=== PATIENT | female | born 1950 | race Caucasian/White ===

== ENCOUNTER 2018-04-19 17:36 | Emergency (ER) | payer MEDICARE, BC ==
[~2018-04-19] VITALS: Ht 154.9 cm; Wt 67.1 kg
[~2018-04-19 17:36] MED LIST: HYDROCODON-ACE1 EA11 PO; METOPROLOL TART25 MG PO; PRILOSEC OTC20 MG PO; QUINAPRIL HCL20 MG PO; TYLENOL EXTRA500 MG PO
--- OUTSIDE RECORDS SUMMARY | 2018-04-19 17:39 | XMS REPORT | Clinical Summary ---
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 Disp. Refills Start End Date Status Date polyethylene glycol TAKE 1 PACKET BY MOUTH 1 02/02/20 Active (MIRALAX) 17 gram packet EVERY DAY NEEDED FOR 16 20 DAYS. sucralfate (CARAFATE) 1 Take 1 g by mouth every 6 0 02/21/20 Active gram tablet (six) hours. 16 HYDROcodone-acetaminophen TAKE 1 TABLET BY MOUTH 4 0 02/14/20 Active (NORCO 10-325) 10-325 mg TIMES A DAY NEEDED FOR 16 per tablet PAIN furosemide (LASIX) 40 MG Take 40 mg by mouth 2 Active tablet (two) times a day. FLUoxetine (PROzac) 20 MG Take 1 capsule (20 mg 30 capsule 2 02/25/20 Active capsuleIndications: total) by mouth daily. 16 Depression with anxiety atorvastatin (LIPITOR) 40 Take 1 tablet (40 mg 90 tablet 1 03/02/20 Active MG tablet total) by mouth daily. 16 traZODone (DESYREL) 50 MG TAKE 1 TABLET BY MOUTH 30 tablet 0 04/06/20 Active tablet NIGHTLY NEEDED FOR 16 SLEEP FOR UP TO 30 DAYS. Active Problems Problem Noted Date Bilateral swelling of feet 02/25/2016 Primary osteoarthritis of both knees 02/25/2016 Depression with anxiety 02/25/2016 PUD (peptic ulcer disease) 02/25/2016 Essential hypertension 02/25/2016 Bariatric surgery status 02/25/2016 Atopic rhinitis 08/30/2012 Immunizations Name Dates Previously Given Next Due Influenza (IM) 04/29/2013 Preservative Free Tdap 12/31/2012 Social History Tobacco Use Types Packs/Day Years Used Date Never Smoker Smokeless Tobacco: Never Used Alcohol Use Drinks/Week oz/Week Comments No Sex Assigned at Date Recorded Not on file Last Filed Vital Signs Not on file Plan of Treatment Health Maintenance Due Date Last Done Comments BREAST CANCER SCREENING 10/29/1999 SHINGRIX VACCINE (#1) 10/29/1999 ZOSTER VACCINE 2009 PNEUMOCOCCAL 2014 POLYSACCHARIDE VACCINE AGE 65 AND OVER PNEUMOCOCCAL-13 2014 INFLUENZA VACCINE 01/23/2018 COLON CANCER SCREENING 07/27/2025 07/27/2015 Results Not on fileafter 04/18/2017 Insurance Payer Benefit Subscriber ID Type Phone Address Plan / Group MEDICARE MEDICARE xxxxxxxxxx Medicare [place] PART A AND B BCBS MEDICARE BLUE xxxxxxxxxxxx PPO MEDICARE ADVANTAGE PPO Home: P Vannessa JIMENEZ [id number] [place] [id number]
--- OUTSIDE RECORDS SUMMARY | 2018-04-19 17:40 | XMS REPORT | Summary of Care ---
Author Author [facility] Address Unknown Phone Unavailable Encounter HQ Danika_mic(FIN) [id number] Date(s): 04/26/15 - 05/25/15 [facility] Discharge Disposition: Home Attending Physician: Dontae Bello MD Vital Signs No data available for this section Problem List Condition Effective Dates Status Health Status Informant Bundle branch block, Active right(Confirmed) GERD Resolved (gastroesophageal reflux disease)(Confirmed) Hiatal Resolved hernia(Confirmed) High Resolved cholesterol(Confirme d) History of gastric Resolved ulcer(Confirmed) HTN Resolved (hypertension)(Confi rmed) Morbid Resolved obesity(Confirmed) Rheumatoid Resolved arthritis(Confirmed) Allergies, Adverse Reactions, Alerts Substance Reaction Severity Status codeine Active Cough Syrup Active iodine Active iodine topical Active Medications No data available for this section Results No data available for this section Immunizations No data available for this section Procedures Procedure Date Related Diagnosis Body Site Aortofemoral angiogram Upper GI endoscopy Social History Social History Type Response Smoking Status Never smoker; Exposure to Tobacco Smoke None; Cigarette Smoking Last 365 Days No; Reg Smoking Cessation Counseling No Assessment and Plan No data available for this section
--- OUTSIDE RECORDS SUMMARY | 2018-04-19 17:40 | XMS REPORT | Summary of Care ---
Author Author [facility] Organization [facility] Address Unknown Phone Unavailable Encounter TANVIR Coronado(DMITRIY) [id number] Date(s): 03/08/15 - 03/08/15 [facility] [address] [place] [address]- Discharge Disposition: Home Attending Physician: Anrdew Armstrong MD Referring Physician: Andrew Armstrong MD Vital Signs 1 2 3 Most recent to oldest [Reference Range]: 152.4 cm (03/05/15 2:01 PM) Height 1 2 3 Most recent to oldest [Reference Range]: 154/84 mmHg *HI* (03/08/15 9:45 AM) 168/92 mmHg *HI* (03/08/15 9:30 AM) 152/83 mmHg 1 *HI* (03/08/15 9:17 AM) Blood Pressure [90-140/60-90 mmHg] 1 2 3 Most recent to oldest [Reference Range]: 16 BRMIN (03/08/15 9:45 AM) 16 BRMIN (03/08/15 9:30 AM) 14 BRMIN (03/08/15 9:17 AM) Respiratory Rate [14-20 BRMIN] 1 2 3 Most recent to oldest [Reference Range]: 128.182 kg (03/05/15 2:01 PM) Weight 1 2 3 Most recent to oldest [Reference Range]: 55.19 m2 (03/05/15 2:01 PM) Body Mass Index 1Result Comment: bp in preop 176/85 Problem List Condition Effective Dates Status Health Status Informant Bundle branch block, Active right(Confirmed) GERD Resolved (gastroesophageal reflux disease)(Confirmed) Hiatal Resolved hernia(Confirmed) High Resolved cholesterol(Confirme d) History of gastric Resolved ulcer(Confirmed) HTN Resolved (hypertension)(Confi rmed) Morbid Resolved obesity(Confirmed) Rheumatoid Resolved arthritis(Confirmed) Allergies, Adverse Reactions, Alerts Substance Reaction Severity Status codeine Active Cough Syrup Active iodine Active iodine topical Active Medications Dexilant PO, Daily, 0 Refill(s) Start Date: 03/05/15 Status: Ordered Lactated Ringers Injection IV 1000 mL 1,000 mL, Rate: 25 ml/hr, Infuse over: 40 hr, Route: IV, Dosing Weight 128.182 k g, Total Volume: 1,000, Start date: 03/08/15 8:58:00, Duration: 30 day, Stop jamie e: 04/07/15 8:57:00 Start Date: 03/08/15 Stop Date: 03/08/15 Status: Discontinued quinapril PO, Daily, 0 Refill(s) Start Date: 03/05/15 Status: Ordered Vitamin C 0 Refill(s) Start Date: 03/05/15 Status: Ordered Vitamin D3 0 Refill(s) Start Date: 03/05/15 Status: Ordered vitamin E PO, Daily, 0 Refill(s) Start Date: 03/05/15 Status: Ordered Results No data available for this section [...]
--- OUTSIDE RECORDS SUMMARY | 2018-04-19 17:40 | XMS REPORT | Summary of Care ---
Author Author [facility] Organization [facility] Address Unknown Phone Unavailable Encounter HQ Cliff(FIN) [id number] Date(s): 03/30/15 - 03/30/15 [facility] [address] [place] [address]- Final: Right upper quadrant pain Discharge Disposition: Home Attending Physician: Andrew Armstrong MD Referring Physician: Andrew Armstrong MD Vital Signs No data available for [...]
--- OUTSIDE RECORDS SUMMARY | 2018-04-19 17:40 | XMS REPORT | Summary of Care ---
Author Organization Unknown Address Unknown Phone Unavailable Encounter HQ Encntr_aligodfrey(DMITRIY) [id number] Date(s): 12/04/14 - 01/02/15 [facility] [address] [place] [address]- Discharge Disposition: Home Physician Attending: Andrew Armstrong MD Physician_Referring: Andrew Armstrong MD Vital Signs No data available for this section Problem List Condition Effective Dates Status Health Status Informant Bundle branch block, Active right(Confirmed) Allergies, Adverse Reactions, Alerts Substance Reaction Severity Status Cough Syrup Active iodine Active Medications No data available for this section Results No data available for this section Immunizations No data available for this section Procedures No data available for this section Social History Social History Type Response Smoking Status Never smoker; Exposure to Tobacco Smoke None; Cigarette Smoking Last 365 Days No; Reg Smoking Cessation Counseling No Assessment and Plan No data available for this section
--- OUTSIDE RECORDS SUMMARY | 2018-04-19 17:40 | XMS REPORT | Summary of Care ---
Author Author [facility] Outpatient Imaging [facility] [place] Address Unknown Phone Unavailable Encounter HQ Encntr_alias(FIN) [id number] Date(s): 03/02/15 - 03/02/15 [facility] [place] [address] [place], [place] [id number] [phone] Discharge Disposition: Home Attending Physician: Kye Najera MD Vital Signs No data available for [...]
--- OUTSIDE RECORDS SUMMARY | 2018-04-19 17:40 | XMS REPORT | Summary of Care ---
Author Author [facility] Organization [facility] Address Unknown Phone Unavailable Encounter TANVIR Coronado(DMITRIY) [id number] Date(s): 02/02/15 - 02/02/15 [facility] [address] [place] [address]- [phone] Discharge Disposition: Home Attending Physician: Yisel Kaufman MD Referring Physician: Yisel Kaufman MD Vital Signs Most recent to 1 oldest [Reference Range]: Height 154.94 cm (02/02/15 1:34 PM) Most recent to 1 oldest [Reference Range]: Weight 126.364 kg (02/02/15 1:34 PM) Most recent to 1 oldest [Reference Range]: Body Mass Index 52.64 m2 (02/02/15 1:34 PM) Problem List Condition Effective Dates Status Health [...]
--- OUTSIDE RECORDS SUMMARY | 2018-04-19 17:40 | XMS REPORT | Summary of Care ---
Author Author [facility] Address Unknown Phone Unavailable Encounter HQ Danika_mic(FIN) [id number] Date(s): 10/06/15 - 11/04/15 [facility] Discharge Disposition: Home Attending Physician: Zeeshan El MD Vital Signs No data available for [...]
--- OUTSIDE RECORDS SUMMARY | 2018-04-19 17:40 | XMS REPORT | Summary of Care ---
Author Author [facility] Organization [facility] Address Unknown Phone Unavailable Encounter TANVIR [place](DMITRIY) [id number] Date(s): 03/17/15 - 03/17/15 [facility] [address] [place] [address]- Discharge Disposition: Home Attending Physician: Andrew Armstrong [...]
--- OUTSIDE RECORDS SUMMARY | 2018-04-19 17:40 | XMS REPORT | Summary of Care ---
Author Organization Unknown Address Unknown Phone Unavailable Encounter HQ Encntr_aligodfrey([facility]) [id number] Date(s): 05/26/14 - 05/26/14 [facility] Outpatient Imaging - [address] [address]- [place] Discharge Disposition: Home Physician Attending: Kye Najera MD Reason for Visit 789.00 - ABDMNAL PAIN UN 787.02 - NAUSEA ALONE Problem List No data available for this section Allergies, Adverse Reactions, Alerts No data available for this section Medications No data available for this section Medications Administered During Your Visit No data available for this section Immunizations No data available for this section
--- OUTSIDE RECORDS SUMMARY | 2018-04-19 17:40 | XMS REPORT | Summary of Care ---
Author Author [facility] Organization [facility] Address Unknown Phone Unavailable Encounter HQ Danika_mic(FIN) [id number] Date(s): 05/14/15 - 05/14/15 [facility] [address] [place] [address]- Final: Gastric ulcer, unspecified as acute or chronic, without hemorrhage or per foration Final: Encounter for screening for malignant neoplasm of colon Discharge Disposition: Home Attending Physician: Lynn Valdivia MD Referring Physician: Lynn Valdivia MD Vital Signs No data available for [...]
--- OUTSIDE RECORDS SUMMARY | 2018-04-19 17:40 | XMS REPORT | Summary of Care ---
Author Author [facility] Outpatient Imaging [facility] [place] Address Unknown Phone Unavailable Encounter HQ Danika_mic(FIN) [id number] Date(s): 04/20/15 - 04/20/15 [facility] Outpatient Imaging [place] [address] [place], [place] [id number]- [phone] Discharge Disposition: Home Attending Physician: Kye Najera [...]
--- OUTSIDE RECORDS SUMMARY | 2018-04-19 17:40 | XMS REPORT | Continuity of Care Document ---
Author Author [facility] Interface Address Unknown Phone Unavailable Problems Problem Status Onset Date Classification Date Reported Comments Source Abnormal electrocardiogram [ECG] [EKG] 07/07/2017 10/09/2017 [facility] R94.31 *DR WELLS TO PERFORM Active 06/15/2017 [facility] LT KNEE OA Active 01/23/2017 [facility] [place] Discharge Diagnosis: Dehydration 10/10/2016 10/13/2016 [facility] DEHYDRATED/DIZZINESS Active 10/10/2016 [facility] UNK Active 09/07/2016 [facility] TKR Active 06/25/2016 [facility] BILAT KNEE PAIN Active 06/25/2016 [facility] BLOATING / GASTROPARESIS Active 05/05/2015 [facility] ABD PAIN Active 03/24/2015 [facility] V76.12 - SCREEN MAMMOGRA Active 02/19/2015 [facility] 281.0,531.90 Active 01/28/2015 [facility] ABN EKG, CHEST PAIN, SOB *MANDEEP T Active 01/28/2015 [facility] 530.81 Active 12/28/2014 [facility] MORBID OBESITY Active 12/03/2014 [facility] 789.04 - ABDMNAL PAIN LT Active 09/06/2011 DAREK Elmore Bundle branch block, right Active Problem 10/09/2017 [facility] Final: Right upper quadrant pain 04/02/2015 [facility] GERD (<span ID="[id number]">Confirmed</span>) Resolved Problem 10/09/2017 [facility], [place],[facility] Hiatal hernia Resolved Problem 10/09/2017 [facility], DAREK [place]ip[place],[facility] High cholesterol Resolved Problem 10/09/2017 [facility] [place],[facility] [place],[facility] History of gastric ulcer Resolved Problem 10/09/2017 [facility] [place],[facility] [place],[facility] HTN (<span [id number]">Confirmed</span>) Resolved Problem 10/09/2017 [facility] [place],[facility] [place],[facility] Morbid obesity Resolved Problem 10/09/2017 [facility] [place],[facility] [place],[facility] Rheumatoid arthritis Resolved Problem 10/09/2017 [facility] [place],[facility] [place],[facility] Final: Gastric ulcer, unspecified as acute or chronic, without hemorrhage or perforation 05/17/2015 [facility] Final: Encounter for screening for malignant neoplasm of colon 05/17/2015 [facility] Acid reflux Active Problem 10/09/2017 [facility] [place],[facility] Hypertension Active Problem 10/09/2017 [facility] Chronic pain syndrome Active Problem 01/10/2018 Stephan Kearneyer Morbid obesity due to excess calories Active Problem 01/10/2018 Stephan 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 use 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 Active Problem 01/10/2018 Stephan Post Nutritional deficiency Active Problem 01/10/2018 Stephan Post Radiculopathy, lumbar region Active Problem 01/10/2018 Stephan Post Spasm of muscle Active Problem 01/10/2018 Stephan Post Primary osteoarthritis of left knee Active Problem 01/10/2018 Stephan Post Primary osteoarthritis of right knee Active Problem 01/10/2018 Stephan Post Pain in joint of left knee Active Problem 01/10/2018 Stephan Post Pain in joint of right knee Active Problem 01/10/2018 Stephan Post Muscle spasm Active Diagnosis 01/09/2017 Stephan Post Arthralgia of knee, right Active Problem 04/04/2018 Enayet Rahim Primary osteoarthritis, unspecified site Active Problem 04/04/2018 Enayet Rahim Essential hypertension Active Problem 04/04/2018 Melvina Richards,[id number] Anxiety disorder, unspecified Active Problem 04/04/2018 Melvina Richards Major depressive disorder, single episode, unspecified Active Problem 04/04/2018 Melvina Richards Intractable cyclical vomiting with nausea Active Problem 04/04/2018 Melvina Richards Nausea Active Problem 04/04/2018 Melvina Richards Other dietary vitamin B12 deficiency anemia Active Problem 04/04/2018 Melvina Richards Primary insomnia Active Problem 04/04/2018 Melvina Richards Fatigue, unspecified type Active Problem 04/04/2018 Melvina Richards Dehydration Active Diagnosis 11/16/2016 Melvina Richards Anxiety Active Problem 04/04/2018 Melvina Richards,[id number] S/P bariatric surgery Active Problem 04/04/2018 Melvina Richards Dizziness and giddiness Active Diagnosis 10/11/2016 Melvina Richards Volume depletion Active Diagnosis 10/11/2016 Melvina Richards Acute pain of left knee Active Diagnosis 01/26/2017 Melvina Richards Preoperative clearance Active Diagnosis 01/26/2017 Melvina Richards Fall, subsequent encounter Active Diagnosis 01/26/2017 Melvina Richards Primary osteoarthritis, right hand Active Problem 04/04/2018 Melvina Richards Primary osteoarthritis of left hand Active Problem 04/04/2018 Melvina Richards Primary osteoarthritis involving multiple joints Active Problem 04/04/2018 Melvina Richards Cardiac murmur Active Diagnosis 08/03/2017 Melvina Richards Polyarthralgia Active Problem 01/10/2018 Stephan Post Intractable migraine without aura and without status migrainosus Active Problem 04/04/2018 Melvina Richards Heart murmur Active Diagnosis 03/21/2018 Melvina Richards Bilateral lower extremity edema Active Diagnosis 03/24/2016 Melvina Richards Chronic pain Active Diagnosis 02/17/2016 [id number] Arthritis of both knees Active Diagnosis 02/17/2016 [id number] Pure hypercholesterolemia Active Problem 02/17/2016 [id number] Encounter for general adult medical examination without abnormal findings Active Diagnosis 02/17/2016 [id number] Panic disorder Active Problem 02/17/2016 [id number] Pre-operative clearance Active Diagnosis 04/25/2016 Rickmarcos Evelynjorge Hot flashes Active Diagnosis 09/01/2016 Melvina Rivasjorge Hx of bariatric surgery Active Diagnosis 07/20/2016 Melvina Evelynjorge Iron deficiency anemia, unspecified iron deficiency anemia type Active Diagnosis 07/20/2016 Rickmarcos Baezousmanejorge Non-intractable vomiting with nausea, unspecified vomiting type Active Diagnosis 07/20/2016 Melvina Baezousmanejorge ESOPHAGEAL REFLUX Active [facility] PERNICIOUS ANEMIA Active [facility] STOMACH ULCER NOS Active [facility] STOMACH ULCER NOS-OBSTR Active [facility] RIGHT UPPER QUADRANT PAIN Active [facility] CHEST PAIN NOS Active [facility] SHORTNESS OF BREATH Active [facility] ABNORM ELECTROCARDIOGRAM Active [facility] KNEE PAIN O/A Active [facility] [place] GASTROPARESIS Active [facility] ABDOMINAL DISTENSION (GASEOUS) Active [facility] MORBID (SEVERE) OBESITY DUE TO EXCESS CA Active [facility] GASTRIC ULCER, UNSP ACUTE OR CHRONIC, Active [facility] ENCOUNTER FOR SCREENING FOR MALIGNANT NE Active [facility] OBESITY; OA OF KNEE /AQUATIC Active [facility] OBESITY, OA OF KNEE Active [facility] UNILATERAL PRIMARY OSTEOARTHRITIS, RIGHT Active [facility] JORGE KNEE DJD Active [facility] [place] ABNORMAL ELECTROCARDIOGRAM [ECG] [EKG] Active [facility] Medications Medication Details Route Status Patient Instructions Ordering Provider Order Date Source Promethazine HCl 1 tablet as needed Orally Active 12.5 MG Orally every 12 hrs as needed for nausea [facility] 03/29/2018 Melvina Richards Naproxen 1 tablet with food or milk as needed Orally Active 500 MG Orally every 12 hrs [facility] 01/09/2018 Stephan Post Medrol Dose Rahul as directed Orally Active 4mg Orally once a day [facility] 01/04/2018 Stephan Post Acetaminophen-Codeine #3 1 tablet as needed Orally Active 300- 30 MG Orally daily [facility] 01/04/2018 Stephan Psot [place] 1 tablet as needed Orally Active 10-325 MG Orally BID [facility] 12/05/2017 Stephan Post Trazodone HCl 1 tablet at bedtime as needed Orally Active 50 MG Orally Once a day [facility] 11/13/2017 Enmarcos Rahim PredniSONE 1 tablet Orally Active 20 MG Orally Once a day [facility] 11/13/2017 Enmarcos Raousmanem Voltaren 2 grams to affected area as needed Transdermal Active 1 % Transdermal QID [facility] 11/09/2017 Stephan Post Tramadol HCl 1 tablet as needed Orally Active 50 MG Orally TID [facility] 11/05/2017 Stephan Post Medrol Dose Rahul as directed Orally Active 4mg Orally once a day [facility] 10/22/2017 Stephan Post Diclofenac Sodium as directed Transdermal Active 1 % Transdermal bid prn [facility] [place] 09/28/2017 Enmarcos Rachristos Tramadol HCl 1 tablet as needed Orally Active 50 MG Orally every 6 hrs PRN [facility] 08/10/2017 Stephan Post Alprazolam 1 tab in am and half at bedtime Orally Active 0.25 MG Orally bid prn [facility] 05/04/2017 Enldet Rahim Keflex 1 capsule Orally Active 500 MG Orally every 12 hrs [facility] 01/29/2017 Melvina Richards Ketorolac Tromethamine 1 tablet with food or milk as needed Orally Active 10 MG Orally Twice a day [facility] 01/22/2017 Stephan Post Tramadol HCl 1 tablet as needed Orally Active 50 MG Orally every 6 hrs PRN [facility] 01/22/2017 Stephan Post Ketorolac Tromethamine 1 tablet with food or milk as needed Orally Active 10 MG Orally Twice a day [facility] 01/22/2017 Stephan Post Robaxin-750 1 tablet Orally Active 750 MG Orally every 8 hrs PRN [facility] 12/29/2016 Stephan Post Robaxin-750 1 tablet Orally Active 750 MG Orally TID [facility] 12/06/2016 Stephan Post Celexa 1 tablet Orally Active 20 MG Orally Once a day [facility] 11/14/2016 Enayet Rahim Keflex 1 capsule Orally Active 250 MG Orally twice a day (bid) [facility] 11/14/2016 Enldet Raousmanem Alprazolam 1 tablet Orally Active 0.25 MG Orally once a day as needed for panic attack [facility] 11/14/2016 Melvina Richards Ondansetron 1 tablet on the tongue and allow to dissolve Orally Active 4 MG Orally every 8 hrs [facility] 11/06/2016 Stephan Post Diazepam half tablet Orally Active 5 MG Orally prn [facility] 11/06/2016 Stephan Post Flexeril TAKE 1 TABLET BY MOUTH AT BEDTIME NEEDED NA Active 10 MG [facility] 11/06/2016 Stephan Post Calcium Chloride 0.0014 MEQ/ML / Potassium Chloride 0.004 MEQ/ML / Sodium Chloride 0.103 MEQ/ML / Sodium Lactate 0.028 MEQ/ML Injectable Solution 1,000 mL, 1,000 ml/hr, Infuse Over: 1 hr, Route: IV, ONCE, Priority: STAT, Dosing Weight 67.273 kg, Start date: 10/10/16 12:56:00 CDT, Duration: 1 doses or times, Stop date: 10/10/16 12:56:00 CDT Inactive 10/10/2016 [facility] potassium chloride 20 mEq oral tablet, extended release 20 mEq, 1 tab, Route: PO, Drug form: ERTAB, ONCE, Dosing Weight 67.273, kg, Priority: STAT, Start date: 10/10/16 11:42:00 CDT, Stop date: 10/10/16 11:42:00 CDTNotes: (Same as: K-Dur 20) "Do Not Crush" With food and full glass of water Inactive 10/10/2016 [facility] Lactated Ringers 1,000 mL 1,000 mL, Rate: 2,000 ml/hr, Infuse over: 0.5 hr, Route: IV, Dosing Weight 67.273 kg, Total Volume: 1,000, Start date: 10/10/16 11:41:00 CDT, Duration: 1 doses or times, Stop date: 10/10/16 12:10:00 CDT Inactive 10/10/2016 [facility] Sodium Chloride 0.154 MEQ/ML Injectable Solution 1,000 mL, 1,000 ml/hr, Infuse Over: 1 hr, Route: IV, 1,000, Drug form: INJ, ONCE, Priority: STAT, Dosing Weight 67.273 kg, Start date: 10/10/16 10:44:00 CDT, Duration: 1 doses or times, Stop date: 10/10/16 10:44:00 CDT Inactive 10/10/2016 [facility] Saline Flush 0.9% 10 mL, Route: IVP, Drug Form: INJ, Dosing Weight 67.273, kg, PRN, PRN Line Flush, Start date: 10/10/16 10:37:00 CDT, Duration: 30 day, Stop date: 11/09/16 10:36:00 CDTNotes: (Same as: BD Posiflush) Inactive 10/10/2016 [facility] Flexeril 10 mg 30 one tablet orally Active 10 mg orally bedtime prn [place] 10/09/2016 Stephan Post Valium 0 Refill(s) Active 09/08/2016 [facility] Xanax 1 tablet Orally Active 0.25 MG Orally daily prn anxiety [facility] 09/04/2016 [facility] Zofran ODT 1 tablet on the tongue and allow to dissolve Orally Active 4 MG Orally three times a day (tid) as needed (prn) [facility] 09/04/2016 [facility] Diazepam 1 tablet as needed Orally Active 10 MG Orally twice a day (bid) [facility] 09/04/2016 [facility] Gabapentin 2 capsule Orally Active 100 MG Orally once every night [facility] 08/29/2016 [facility] Venlafaxine HCl 1 tablet with food Orally Active 25 MG Orally daily [facility] 08/29/2016 [facility] Diazepam 1 tablet as needed Orally Active 10 MG Orally once every night [facility] 08/07/2016 [facility] Cyanocobalamin as directed Sublingual Active 2500 MCG Sublingual Once a day [facility] 07/19/2016 [facility] Cyanocobalamin 1 tablet under the tongue and allow to dissolve Sublingual Active 1000 MCG Sublingual Once a day [facility] 07/10/2016 [facility] Ferrous Sulfate 5 ml Orally Active 220 (44 Fe) MG/5ML Orally Twice a day [facility] 07/10/2016 [facility] Cyanocobalamin 1 tablet under the tongue and allow to dissolve Sublingual Active 1000 MCG Sublingual Once a day [facility] 07/10/2016 [facility] Ferrous Sulfate 5 ml Orally Active 220 (44 Fe) MG/5ML Orally Twice a day [facility] 07/10/2016 Melvina Richards Ibuprofen 1 tablet Orally Active 800 MG Orally Three times a day (drink plenty of water) [facility] 06/27/2016 Melvina Baezlajorge Ketorolac Tromethamine 1 tablet as needed Orally Active 10 MG Orally every 6 hrs [facility] 06/23/2016 [facility] rivaroxaban 10 mg oral tablet 10 mg=1 tab, PO, Q24H, # 10 tab, 0 Refill(s) Active 05/31/2016 [facility] Streptococcus pneumoniae serotype 1 capsular antigen diphtheria [id number] protein conjugate vaccine / Streptococcus pneumoniae serotype 14 capsular antigen diphtheria [id number] protein conjugate vaccine / Streptococcus pneumoniae serotype 18C capsular antigen d 0.5 mL, Route: IM, Drug Form: INJ, Daily, Start date: 05/30/16 9:00:00 [facility], Duration: 1 doses or times, Stop date: 05/30/16 9:00:00 CSTNotes: Lightly roll vial (DO NOT SHAKE) before administration. (Same as: Prevnar 13) Inactive 05/30/2016 [facility] Xarelto 10 mg, Route: PO, Daily, Dosing Weight 80.653, kg, Start date: 05/30/16 9:00:00 [facility]ING [facility], Duration: 30 day, Stop date: 06/28/16 9:00:00 [facility]ING AMBUL[facility]ORY C[facility] No Longer Active 05/30/2016 [facility] Prilosec 40 mg, Route: PO, Daily, Dosing Weight 80.653, kg, Start date: 05/30/16 9:00:00 [facility]ING AMBULATORY C[facility], Duration: 30 day, Stop date: 06/28/16 9:00:00 ATTENDING AMBULATORY CARE No Longer Active 05/30/2016 [facility] Furosemide 20 MG Oral Tablet 20 mg, 1 tab, Route: PO, Drug form: TAB, Daily, Dosing Weight 80.653, kg, Start date: 05/30/16 9:00:00 [facility]ENDING AMBULATORY CARE, Duration: 30 day, Stop date: 06/28/16 9:00:00 CSTNotes: (Same as: Lasix) May cause GI upset. Give with food or milk. No Longer Active 05/30/2016 [facility] Acetaminophen 325 MG / Hydrocodone Bitartrate 10 MG Oral Tablet [[place] 10/325] 1 tab, Route: PO, Drug Form: TAB, Dosing Weight 80.653, kg, Q4H, PRN Pain Score 6-10, Start date: 05/30/16 8:18:00 [facility]ENDING AMBULATORY C[facility], Duration: 30 day, Stop date: 06/29/16 8:17:00 CSTNotes: Do not exceed 4gm/day of acetaminophen. (Same as: [place] 325/10) No Longer Active 05/30/2016 [facility] ketOROLAC 15 mg/mL injectable solution 15 mg, 1 mL, Route: IVP, Drug form: INJ, Daily, Dosing Weight 80.653, kg, PRN Pain Score 6-10, Start date: 05/30/16 7:43:00 ATTENDING AMBULATORY CARE, Duration: 4 day, Stop date: 06/03/16 7:42:00 ATTENDING AMBULATORY CARE No Longer Active 05/30/2016 [facility] atorvastatin 20 mg, 2 tab, Route: PO, Drug form: TAB, Bedtime, Dosing Weight 80.653, kg, Start date: 05/29/16 21:00:00 ATTENDING AMBULATORY CARE, Duration: 30 day, Stop date: 06/27/16 21:00:00 CSTNotes: (Same As: Lipitor) No Longer Active 05/30/2016 [facility] Docusate Sodium 100 MG Oral Capsule 100 mg, 1 cap, Route: PO, Drug form: CAP, BID, Dosing Weight 80.653, kg, Start date: 05/29/16 17:00:00 ATTENDING AMBULATORY CARE, Duration: 30 day, Stop date: 06/28/16 9:00:00 CSTNotes: (Same as: Colace) (Do Not Crush) No Longer Active 05/29/2016 [facility] Protonix 40 mg, 1 tab, Route: PO, Drug form: ECTAB, Before Dinner, Start date: 05/29/16 16:30:00 ATTENDING AMBULATORY CARE, Duration: 30 day, Stop date: 06/27/16 16:30:00 CSTNotes: Tablet should not be chewed or crushed. (Same as: Protonix) No Longer Active 05/29/2016 [facility] ceFAZolin (SCIP) 1 gm, 100 mL, Route: IVPB, Drug form: INJ, Q8H, Dosing Weight 80.653, kg, Start date: 05/29/16 16:00:00 ATTENDING AMBULATORY CARE, Duration: 1 doses or times, Stop date: 05/29/16 16:00:00 ATTENDING AMBULATORY CARE Inactive 05/29/2016 [facility] rivaroxaban 10 mg, 1 tab, Route: PO, Drug form: TAB, Q24H, Dosing Weight 80.653, kg, Start date: 05/29/16 15:45:00 ATTENDING AMBULATORY CARE, Duration: 30 day, Stop date: 06/27/16 15:45:00 CSTNotes: (Same as: Xarelto) Do Not Crush No Longer Active 05/29/2016 [facility] K-Dur 20 40 mEq, 2 tab, Route: PO, Drug form: ERTAB, ONCE, Dosing Weight 80.653, kg, Start date: 05/29/16 15:00:00 ATTENDING AMBULATORY CARE, Stop date: 05/29/16 15:00:00 CSTNotes: (Same as: K-Dur 20) "Do Not Crush" With food and full glass of water Inactive 05/29/2016 [facility] Tramadol 50 mg, 1 tab, Route: PO, Drug form: TAB, Q4H, Dosing Weight 80.653, kg, PRN Pain Score 1-3, Start date: 05/29/16 9:50:00 ATTENDING AMBULATORY CARE, Duration: 30 day, Stop date: 06/28/16 9:49:00 ATTENDING AMBULATORY CARE, ..Notes: Not to exceed 400mg/day. (Same As: Ultram) No Longer Active 05/29/2016 [facility] Acetaminophen 325 MG / Hydrocodone Bitartrate 7.5 MG Oral Tablet [[place] 7.5/325] 1 tab, Route: PO, Drug Form: TAB, Dosing Weight 80.653, kg, Q4H, PRN Pain Score 4-6, Start date: 05/29/16 9:47:00 ATTENDING AMBULATORY CARE, Duration: 30 day, Stop date: 06/28/16 9:46:00 CSTNotes: Same as [place] 325-7.5mg Do not exceed 4gm/day of acetaminophen. No Longer Active 05/29/2016 [facility] Dulcolax Laxative 5 mg, 1 tab, Route: PO, Drug form: ECTAB, Q24H, Dosing Weight 80.653, kg, PRN Constipation, Start date: 05/29/16 9:47:00 ATTENDING AMBULATORY CARE, Duration: 30 day, Stop date: 06/28/16 9:46:00 CSTNotes: (Same As: Dulcolax, Correctol) (Do Not Crush) "Do Not Crush" No Longer Active 05/29/2016 [facility] Al hydroxide/Mg hydroxide/simethicone 200 mg-200 mg-20 mg/5 mL oral suspension 30 ml, Route: PO, Drug Form: SUSP, Dosing Weight 80.653, kg, Q4H, PRN Indigestion, Start date: 05/29/16 9:47:00 ATTENDING AMBULATORY CARE, Duration: 30 day, Stop date: 06/28/16 9:46:00 CSTNotes: (aluminum hydroxide-magnesium hyd- simethicone 630-762-43qm/5ml 30 ml ud LUIS ENRIQUE) No Longer Active 05/29/2016 [facility] Acetaminophen 650 mg, 2 tab, Route: PO, Drug form: TAB, Q4H, Dosing Weight 80.653, kg, PRN Pain 1-3/Temp > 100.4 F, Start date: 05/29/16 9:47:00 ATTENDING AMBULATORY CARE, Duration: 30 day, Stop date: 06/28/16 9:46:00 CSTNotes: Do not exceed 4 gm/day. (Same as: Tylenol) No Longer Active 05/29/2016 [facility] Hydromorphone 0.5 mg, 0.5 mL, Route: IVP, Drug form: INJ, Q3H, Dosing Weight 80.653, kg, PRN Pain Score 7-10, Start date: 05/29/16 9:47:00 ATTENDING AMBULATORY CARE, Duration: 30 day, Stop date: 06/28/16 9:46:00 ATTENDING AMBULATORY CARE No Longer Active 05/29/2016 [facility] Lactated Ringers 1,000 mL 1,000 mL, Rate: 100 ml/hr, Infuse over: 10 hr, Route: IV, Dosing Weight 80.653 kg, Total Volume: 1,000, Start date: 05/29/16 9:47:00 ATTENDING AMBULATORY CARE, Duration: 30 day, Stop date: 06/28/16 9:46:00 ATTENDING AMBULATORY CARE No Longer Active 05/29/2016 [facility] Ondansetron 4 mg, 2 mL, Route: IVP, Drug form: INJ, Q8H, Dosing Weight 80.653, kg, PRN Nausea & Vomiting, Start date: 05/29/16 9:47:00 ATTENDING AMBULATORY CARE, Duration: 30 day, Stop date: 06/28/16 9:46:00 CSTNotes: (Same as: Zofran) MEDICATION WASTE Product Size: 4 mg Product Wasted: ___ mg No Longer Active 05/29/2016 [facility] hydromorphone (ANES) Route: IV, Drug form: INJ, ONCE, Stop date: 05/29/16 9:41:00 [facility]ENDING AMBULATORY C[facility] Inactive 05/29/2016 [facility] tranexamic acid (ANES) Route: IV, Drug form: INJ, ONCE, Stop date: 05/29/16 9:26:00 ATTENDING AMBULATORY CARE Inactive 05/29/2016 [facility] fentaNYL (ANES) Route: IV, Drug form: INJ, ONCE, Stop date: 05/29/16 8:51:00 ATTENDING AMBULATORY CARE Inactive 05/29/2016 [facility] famotidine (ANES) Route: IV, Drug form: INJ, ONCE, Stop date: 05/29/16 8:41:00 ATTENDING AMBULATORY CARE Inactive 05/29/2016 [facility] ceFAZolin (ANES) Route: IV, Drug form: INJ, ONCE, Stop date: 05/29/16 8:36:00 ATTENDING AMBULATORY CARE Inactive 05/29/2016 [facility] lidocaine (ANES) Route: IV, Drug form: INJ, ONCE, Stop date: 05/29/16 8:36:00 ATTENDING AMBULATORY CARE Inactive 05/29/2016 [facility] propofol (ANES) Route: IV, Drug form: INJ, ONCE, Stop date: 05/29/16 8:36:00 ATTENDING AMBULATORY CARE Inactive 05/29/2016 [facility] midazolam (ANES) Route: IV, Drug form: SOLN, ONCE, Stop date: 05/29/16 8:31:00 ATTENDING AMBULATORY CARE Inactive 05/29/2016 [facility] ondansetron (ANES) Route: IV, Drug form: INJ, ONCE, Stop date: 05/29/16 8:31:00 ATTENDING AMBULATORY CARE Inactive 05/29/2016 [facility] LR 1000 mL INJ (ANES) Route: IV, Total Volume: 1,000, Start date: 05/29/16 7:41:00 ATTENDING AMBULATORY CARE, Stop date: 05/29/16 8:41:00 ATTENDING AMBULATORY CARE Inactive 05/29/2016 [facility] Calcium Chloride 0.0014 MEQ/ML / Potassium Chloride 0.004 MEQ/ML / Sodium Chloride 0.103 MEQ/ML / Sodium Lactate 0.028 MEQ/ML Injectable Solution 1,000 mL, Rate: 25 ml/hr, Infuse over: 40 hr, Route: IV, Dosing Weight 80.653 kg, Total Volume: 1,000, Start date: 05/29/16 6:24:00 ATTENDING AMBULATORY CARE, Duration: 1 day, Stop date: 05/30/16 6:23:00 ATTENDING AMBULATORY CARE Inactive 05/29/2016 [facility] Furosemide 20 MG Oral Tablet 20 mg=1 tab, PO, Daily, # 30 tab, 0 Refill(s) Active 05/16/2016 [facility] Acetaminophen 325 MG / Hydrocodone Bitartrate 10 MG Oral Tablet 1 tab, PO, Q6H, PRN Pain, # 20 tab, 0 Refill(s) Active 05/16/2016 [facility] Aspirin 81 MG Chewable Tablet 81 mg=1 tab, PO, Daily, tab, 0 Refill(s) Active 05/16/2016 [facility] Prilosec 40 mg, PO, Daily, 0 Refill(s) Active 05/16/2016 [facility] Ketorolac Tromethamine 1 tablet as needed Orally Active 10 MG Orally every 6 hrs [facility] [place] 04/21/2016 [facility] Atorvastatin Calcium 1 tablet Orally Active 20 MG Orally once every night [facility] [place] 04/03/2016 [facility] Medical Compression Stockings as directed as directed Active as directed daily [facility] [place] 03/22/2016 [facility] Medical Compression Stockings as directed as directed Active as directed daily [facility] [place] 03/22/2016 [facility] Potassium Chloride [facility] 1 tablet with food Orally Active 10 MEQ Orally Once a day [facility] [place] 03/22/2016 [facility] Calcium Chloride 0.0014 MEQ/ML / Potassium Chloride 0.004 MEQ/ML / Sodium Chloride 0.103 MEQ/ML / Sodium Lactate 0.028 MEQ/ML Injectable Solution 1,000 mL, Rate: 25 ml/hr, Infuse over: 40 hr, Route: IV, Dosing Weight 128.182 kg, Total Volume: 1,000, Start date: 03/08/15 8:58:00, Duration: 30 day, Stop date: 04/07/15 8:57:00 Inactive 03/08/2015 [facility] Vitamin D3 0 Refill(s) Active 03/05/2015 [facility] Vitamin C 0 Refill(s) Active 03/05/2015 [facility] Vitamin E PO, Daily, 0 Refill(s) Active 03/05/2015 [facility] quinapril PO, Daily, 0 Refill(s) Active 03/05/2015 [facility] Dexilant PO, Daily, 0 Refill(s) Active 03/05/2015 [facility] Esomeprazole 40 MG Enteric Coated Capsule [Nexium] 40 mg=1 cap, PO, Daily, # 30 cap, 1 Refill(s) Active 12/30/2014 [facility] Omeprazole 40 MG Enteric Coated Capsule [Prilosec] 40 mg=1 cap, PO, Daily, # 30 cap, 0 Refill(s) Active 12/30/2014 [facility] Dulcolax Laxative =1 supp, HI, Daily, PRN constipation, # 5 supp, 0 Refill(s) Active 12/30/2014 [facility] atorvastatin 20 mg oral tablet 20 mg=1 tab, PO, Bedtime, # 30 tab, 0 Refill(s) Active 12/30/2014 [facility] Hydrocodone Bitartrate 5 MG / Ibuprofen 200 MG Oral Tablet 1 tab, PO, Q4H, PRN for pain, 0 Refill(s) Active 12/30/2014 [facility] Aspirin 325 MG Oral Tablet 325 mg=1 tab, PO, Q4H, PRN Fever, # 60 tab, 0 Refill(s) Active 12/30/2014 [facility] metoprolol 25 mg oral tablet, extended release 25 mg=1 tab, PO, Daily, # 30 tab, 0 Refill(s) Active 12/30/2014 [facility] Sodium Chloride 0.154 MEQ/ML Injectable Solution 1,000 mL, Rate: 25 ml/hr, Infuse over: 40 hr, Route: IV, Total Volume: 1,000, Start date: 12/30/14 8:17:00, Duration: 30 day, Stop date: 01/29/15 8:16:00 Inactive 12/30/2014 [facility] Vitamin B-12 not defined Orally Active Orally once a month [facility] [place] 1 tablet as needed Orally Active 10-325 MG Orally QID [facility],[id number] Metoprolol & Diet Manage Prod as directed Orally Active 50 MG Orally [facility] Omeprazole 1 capsule Orally Active 40 MG Orally Once a day [facility] Diclofenac Sodium 2g Transdermal Active 1 % Transdermal Four times a day [facility] Quinapril HCl 1tab TID PRN #120 NRF Orally Active 40 MG Orally Once a day [facility] Ondansetron 1 tablet on the tongue and allow to dissolve Orally Active 4 MG Orally every 8 hrs [facility] Diazepam half tablet Orally Active 5 MG Orally prn [facility] Aspirin not defined NA Active [facility] Furosemide 1 tablet Orally Active 20 MG Orally Twice a day [facility] Hydrocodone-Acetaminophen 1 tablet as needed Orally Active 5- 325 MG Orally every 6 hrs [facility] Atorvastatin Calcium 1 tablet Orally Active 20 MG Orally once every night [facility] Quinapril HCl 1 tablet Orally Active 20 MG Orally Once a day [facility] Hydrocodone-Acetaminophen 1 tablet as needed Orally Active 10- 325 MG Orally every 6 hrs [facility] Ketorolac Tromethamine not defined NA Active [facility] Citalopram Hydrobromide 1 tablet Orally Active 20 MG Orally Once a day [facility] Tramadol HCl 1 tablet as needed Orally Active 50 MG Orally every 6 hrs [facility] Quinapril HCl 1 tablet Orally Active 20 MG Orally Once a day as needed [facility] Citalopram Hydrobromide 1 tablet Orally Active 40 mg Orally Once a day [facility] Calcium not defined NA Active [facility] Hydrocodone-Acetaminophen 1 tablet Orally Active 10-325 MG Orally As needed [facility] Vitamin B-12 not defined Orally Active Orally once a month [facility] Quinapril HCl 1tab TID PRN #120 NRF Orally Active 40 MG Orally Once a day [facility] Omeprazole 1 capsule Orally Active 40 MG Orally Once a day [facility] Post [place] 1 tablet as needed Orally Active 10-325 MG Orally QID [facility] Celexa 1 tablet Orally Active 20 MG Orally Once a day [facility] Tramadol HCl 1 tablet as needed Orally Active 50 MG Orally every 6 hrs [facility] Tramadol one tab orally Active 50 mg orally every 4-6 hours prn pain [facility] Quinapril HCl 1 tablet Orally Active 20 MG Orally Once a day [facility] Citalopram Hydrobromide 1 tablet Orally Active 40 mg Orally Once a day [facility] Diazepam 1 tablet as needed Orally Active 10 MG Orally twice a day (bid) [facility] [place] [facility],[id number]. Amitriptyline HCl 1 tablet Orally No Longer Active 25 MG Orally Once a day Jam [id number]. Promethazine HCl 1 suppository as needed Rectal Active 25 MG Rectal every four to six hours Jam [id number]. Fluoxetine 1 capsule in the morning Orally Active 10 MG Orally Once a day Jam [id number]. Quinapril HCl 1 tablet Orally Active 10 mg Orally Once a day prn Jam [id number]. Atorvastatin Calcium 1 tablet Orally No Longer Active 40 MG Orally Once a day Jam [id number]. MiraLax 1 packet mixed with 8 ounces of fluid Orally Active Orally Once a day Jam [id number]. Allergies, Adverse Reactions, Alerts Substance Category Reaction Severity Reaction type Status Date Reported Comments Source Flexeril Adverse Reaction drowsy Adverse Reaction Active 06/11/2017 [facility] Amitriptyline HCl Adverse Reaction nausea Adverse Reaction Active 06/11/2017 [facility] IODINE Adverse Reaction rash Adverse Reaction Active 06/11/2017 [facility] Surgical tape Adverse Reaction rash Adverse Reaction Active 06/11/2017 [facility] benadryl Adverse Reaction itchy, nausea Adverse Reaction Active 06/11/2017 [facility] Benadryl Adverse Reaction Info Not Available Adverse Reaction Active 03/29/2018 Melvina Richards Morphine Sulfate Adverse Reaction Info Not Available Adverse Reaction Active 03/29/2018 Enayet Rahim Iodine Adverse Reaction Info Not Available Adverse Reaction Active 03/29/2018 Enayet Evelynm Trazadone Adverse Reaction Info Not Available Adverse Reaction Active 03/29/2018 Melvina Rivasm Cough Syrup Assertion Drug allergy Active [facility] iodine Assertion Drug allergy Active [facility] codeine Assertion Drug allergy Active [facility] iodine topical Assertion Drug allergy Active [facility] morphine Assertion Drug allergy Active [facility] Immunizations Immunization Date Given Site Status Last Updated Comments Source B 12 Vit Inj 07/19/2016 completed Enmarcos Rivasm B-12 Do Not Use 07/10/2016 completed Melvina Rivasm pneumococcal 13-valent vaccine 05/30/2016 Left Deltoid completed Poli [facility] [place] Influenza 04/10/2016 completed Melvina Richards Results Order Name Results Value Reference Range Date Interpretation Comments Source Cardiac SPECT multi studies NM Cardiac SPECT multi studies NM Nuclear gated myocardial perfusion scan performed as per protocol at the nuclear medicine lab at [address] [place] [address]. Scan injected 0.4 mg intravenously as a stress agent. Cardiolite injected 10 mCi for resting protocol and 30 mCi for stress protocol. Impression. No evidence of ischemia or scar noted. Left ventricular ejection fraction 60%. Normal study. 07/03/2017 - - Read by: Yisel Kaufman MD [facility] Date/time: 07/06/17 15:03 Electronically Signed by: Yisel Kaufman MD 07/06/17 15:04 FINAL REPORT [facility] CARDIAC ENZYMES CK MB Index null 0.0 - 2.5 10/10/2016 [facility] CARDIAC ENZYMES Troponin-I null 0.00 - 0.40 10/10/2016 [facility] CARDIAC ENZYMES CK MB null 0.5 - 3.6 10/10/2016 [facility] CARDIAC ENZYMES Total CK 24 unit/L 12 - 191 10/10/2016 [facility] CHEM PANEL Phosphorus 3.2 mg/dL 2.5 - 4.5 10/10/2016 [facility] CHEM PANEL eGFR 103 mL/min/1.73m2 10/10/2016 Result Comment: The eGFR is calculated using the CKD-EPI formula. In most young, healthy individuals the eGFR will be >90 mL/min/1.73m2. The eGFR declines with age. An eGFR of 60-89 may be normal in some populations, particularly the elderly, for whom the CKD-EPI formula has not been extensively validated. Use of the eGFR is not recommended in the following populations: Individuals with unstable creatinine concentrations, including patients and those with serious co-morbid conditions. Patients with extremes in muscle mass or diet. The data above are obtained from the National Kidney Disease Education Program (NKDEP) which additionally recommends that when the eGFR is used in patients with extremes of body mass index for purposes of drug dosing, the eGFR should be multiplied by the estimated BMI. [facility] CHEM PANEL A/G Ratio 1.0 0.7 - 1.6 10/10/2016 [facility] CHEM PANEL Bili Total 0.6 mg/dL 0.2 - 1.3 10/10/2016 [facility] CHEM PANEL AGAP 12.4 meq/L 10.0 - 20.0 10/10/2016 [facility] CHEM PANEL B/C Ratio 12 6 - 25 10/10/2016 [facility] CHEM PANEL Globulin 2.2 g/dL 2.7 - 4.2 10/10/2016 [facility] CHEM PANEL Creatinine Lvl 0.48 mg/dL 0.50 - 1.40 10/10/2016 [facility] CHEM PANEL Sodium Lvl 144 meq/L 135 - 145 10/10/2016 [facility] CHEM PANEL Potassium Lvl 3.4 meq/L 3.5 - 5.1 10/10/2016 [facility] CHEM PANEL Chloride Lvl 111 meq/L 95 - 109 10/10/2016 [facility] CHEM PANEL CO2 24 meq/L 24 - 32 10/10/2016 [facility] CHEM PANEL Total Protein 4.5 g/dL 6.4 - 8.4 10/10/2016 [facility] CHEM PANEL Calcium Lvl 7.9 mg/dL 8.5 - 10.5 10/10/2016 [facility] CHEM PANEL BUN 6 mg/dL 7 - 22 10/10/2016 [facility] CHEM PANEL Glucose Lvl 75 mg/dL 70 - 99 10/10/2016 [facility] CHEM PANEL ALT 44 unit/L 0 - 65 10/10/2016 [facility] CHEM PANEL Albumin Lvl 2.3 g/dL 3.5 - 5.0 10/10/2016 [facility] CHEM PANEL AST 45 unit/L 0 - 37 10/10/2016 [facility] CHEM PANEL Alk Phos 87 unit/L 39 - 136 10/10/2016 [facility] CHEM PANEL Magnesium Lvl 2.0 mg/dL 1.8 - 2.4 10/10/2016 [facility] HEMATOLOGY Macrocyte 2+ *ABN* (10/10/16 11:04 AM) None Seen 10/10/2016 [facility] HEMATOLOGY Monocytes # 0.3 K/CMM 0.0 - 0.8 10/10/2016 [facility] HEMATOLOGY Lymphocytes # 0.9 K/CMM 1.0 - 5.5 10/10/2016 [facility] HEMATOLOGY Segs-Bands # 1.4 K/CMM 1.5 - 8.1 10/10/2016 [facility] HEMATOLOGY Eosinophils # 0.1 K/CMM 0.0 - 0.5 10/10/2016 [facility] Monocytes 12.5 % 2.0 - 12.0 10/10/2016 [facility] HEMATOLOGY Lymphocytes 33.2 % 20.0 - 40.0 10/10/2016 [facility] HEMATOLOGY Basophils 0.8 % 0.0 - 1.0 10/10/2016 [facility] Eosinophils 1.9 % 0.0 - 4.0 10/10/2016 [facility] Segs 51.6 % 45.0 - 75.0 10/10/2016 [facility] MCH 35.8 pg 27.0 - 31.0 10/10/2016 [facility] MCV 104.5 fL 80.0 - 98.0 10/10/2016 [facility] Platelet 149 K/CMM 133 - 450 10/10/2016 [facility] MPV 7.3 fL 7.4 - 10.4 10/10/2016 [facility] RDW 14.4 % 11.5 - 14.5 10/10/2016 [facility] MCHC 34.2 g/dL 32.0 - 36.0 10/10/2016 [facility] WBC 2.8 K/CMM 3.7 - 10.4 10/10/2016 [facility] HEMATOLOGY Hct 29.0 % 36.0 - 48.0 10/10/2016 [facility] Hgb 9.9 g/dL 12.0 - 16.0 10/10/2016 [facility] HEMATOLOGY RBC 2.77 M/CMM 4.20 - 5.40 10/10/2016 [facility] ELECTROLYTES Potassium Lvl 3.7 meq/L 3.5 - 5.1 05/31/2016 [facility] HEMATOLOGY Hct 28.9 % 36.0 - 48.0 05/31/2016 [facility] HEMATOLOGY Hgb 9.8 g/dL 12.0 - 16.0 05/31/2016 [facility] HEMATOLOGY Hct 28.7 % 36.0 - 48.0 05/30/2016 [facility] HEMATOLOGY Hgb 9.2 g/dL 12.0 - 16.0 05/30/2016 [facility] BLOOD BANK RESULTS Antibody Scrn Negative (05/29/16 6:03 AM) 05/29/2016 [facility] BLOOD BANK RESULTS ABO/Rh A POS 05/29/2016 [facility] CHEM PANEL Bili Total 0.6 mg/dL 0.2 - 1.3 05/29/2016 [facility] CHEM PANEL Alk Phos 72 unit/L 39 - 136 05/29/2016 [facility] CHEM PANEL AST 9 unit/L 0 - 37 05/29/2016 [facility] CHEM PANEL eGFR 95 mL/min/1.73m2 05/29/2016 Result Comment: The eGFR is calculated using the CKD-EPI formula. In most young, healthy individuals the eGFR will be >90 mL/min/1.73m2. The eGFR declines with age. An eGFR of 60-89 may be normal in some populations, particularly the elderly, for whom the CKD-EPI formula has not been extensively validated. Use of the eGFR is not recommended in the following populations: Individuals with unstable creatinine concentrations, including patients and those with serious co-morbid conditions. Patients with extremes in muscle mass or diet. The data above are obtained from the National Kidney Disease Education Program (NKDEP) which additionally recommends that when the eGFR is used in patients with extremes of body mass index for purposes of drug dosing, the eGFR should be multiplied by the estimated BMI. [facility] CHEM PANEL ALT 17 unit/L 0 - 65 05/29/2016 [facility] CHEM PANEL A/G Ratio 1.1 0.7 - 1.6 05/29/2016 [facility] CHEM PANEL Globulin 2.7 g/dL 2.7 - 4.2 05/29/2016 [facility] CHEM PANEL B/C Ratio 16 6 - 25 05/29/2016 [facility] CHEM PANEL Calcium Lvl 8.1 mg/dL 8.5 - 10.5 05/29/2016 [facility] CHEM PANEL Total Protein 5.7 g/dL 6.4 - 8.4 05/29/2016 [facility] CHEM PANEL Albumin Lvl 3.0 g/dL 3.5 - 5.0 05/29/2016 [facility] CHEM PANEL Potassium Lvl 3.0 meq/L 3.5 - 5.1 05/29/2016 Result Comment: Critical Result(s) called to eliud allisonon at 05/29/2016 06:47 by tl. Read back OK. [facility] CHEM PANEL Sodium Lvl 143 meq/L 135 - 145 05/29/2016 [facility] CHEM PANEL CO2 28 meq/L 24 - 32 05/29/2016 [facility] CHEM PANEL Chloride Lvl 107 meq/L 95 - 109 05/29/2016 [facility] CHEM PANEL AGAP 11.0 meq/L 10.0 - 20.0 05/29/2016 [facility] CHEM PANEL Creatinine Lvl 0.61 mg/dL 0.50 - 1.40 05/29/2016 [facility] CHEM PANEL BUN 10 mg/dL 7 - 22 05/29/2016 [facility] CHEM PANEL Glucose Lvl 81 mg/dL 70 - 99 05/29/2016 [facility] HEMATOLOGY Eosinophils # 0.1 K/CMM 0.0 - 0.5 05/29/2016 [facility] HEMATOLOGY Monocytes # 0.4 K/CMM 0.0 - 0.8 05/29/2016 [facility] HEMATOLOGY Lymphocytes 32.7 % 20.0 - 40.0 05/29/2016 [facility] HEMATOLOGY Segs 54.4 % 45.0 - 75.0 05/29/2016 [facility] HEMATOLOGY Lymphocytes # 1.2 K/CMM 1.0 - 5.5 05/29/2016 [facility] HEMATOLOGY Segs-Bands # 2.1 K/CMM 1.5 - 8.1 05/29/2016 [facility] HEMATOLOGY Monocytes 9.4 % 2.0 - 12.0 05/29/2016 [facility] HEMATOLOGY Basophils 1.3 % 0.0 - 1.0 05/29/2016 [facility] HEMATOLOGY Eosinophils 2.2 % 0.0 - 4.0 05/29/2016 [facility] HEMATOLOGY MCV 97.6 fL 80.0 - 98.0 05/29/2016 [facility] HEMATOLOGY RDW 13.4 % 11.5 - 14.5 05/29/2016 [facility] HEMATOLOGY MCHC 34.5 g/dL 32.0 - 36.0 05/29/2016 [facility] MCH 33.7 pg 27.0 - 31.0 05/29/2016 [facility] MPV 7.3 fL 7.4 - 10.4 05/29/2016 [facility] Platelet 162 K/CMM 133 - 450 05/29/2016 [facility] HEMATOLOGY Hct 32.4 % 36.0 - 48.0 05/29/2016 [facility] Hgb 11.2 g/dL 12.0 - 16.0 05/29/2016 [facility] RBC 3.32 M/CMM 4.20 - 5.40 05/29/2016 [facility] WBC 3.8 K/CMM 3.7 - 10.4 05/29/2016 [facility] Knee 1-2 Views unilateral DX Knee 1-2 Views unilateral DX Right knee 2 views: Postoperative radiographs show a total knee arthroplasty in good position. Evaluation in the lateral projection is limited by an overlying brace. The osseous structures appear anatomically aligned. Anterior soft tissue gas is noted. SL [id number] 05/29/2016 - - Read by: Kiko Gomes MD Dictated Date/time: 05/29/16 11:23 Electronically Signed by: Kiko Gomes MD 05/29/16 11:25 FINAL REPORT [facility] BLOOD [facility] RESULTS RBC product Product available 1 (05/16/16 4:45 PM) 05/16/2016 Result Comment: 05/29/2016 07:19 [id number] called to kassandra 05/29/2016 07:19 tb [facility] BLOOD [facility] RESULTS Antibody Scrn Negative (05/16/16 1:53 PM) 05/16/2016 [facility] BLOOD [facility] RESULTS ABO/Rh A POS 05/16/2016 [facility] HEMATOLOGY PTT 26.7 s 22.9 - 35.8 05/16/2016 [facility] HEMATOLOGY PT 14.0 s 12.0 - 14.7 05/16/2016 [facility] HEMATOLOGY INR 1.06 0.85 - 1.17 05/16/2016 [facility] IMMUNOLOGY HIV 1/2 Ab Negative *NA* (05/16/16 1:53 PM) Negative 05/16/2016 [facility] URINE AND STOOL UA Urobilinogen <=1.0 mg/dL 0.1 - 1.0 05/16/2016 [facility] URINE AND STOOL UA Color Ltyellow 05/16/2016 [facility] URINE AND STOOL UA WBC null 0 - 5 05/16/2016 [facility] URINE AND STOOL UA Sq Epi Occasional /LPF Few /LPF 05/16/2016 [facility] URINE AND STOOL UA RBC 1 /HPF 0 - 2 05/16/2016 [facility] URINE AND STOOL UA Mucus Few /LPF None Seen /LPF 05/16/2016 [facility] URINE AND STOOL UA Hyal Cast 1 /LPF 0 - 2 05/16/2016 [facility] URINE AND STOOL UA Turbidity Clear (05/16/16 1:53 PM) Clear 05/16/2016 [facility] URINE AND STOOL UA Spec Grav 1.010 <=1.030 05/16/2016 [facility] URINE AND STOOL UA Blood Negative (05/16/16 1:53 PM) Negative 05/16/2016 [facility] URINE AND STOOL UA Nitrite Negative (05/16/16 1:53 PM) Negative 05/16/2016 [facility] URINE AND STOOL UA Leuk Est Negative (05/16/16 1:53 PM) Negative 05/16/2016 [facility] URINE AND STOOL UA pH 5.0 5.0 - 8.0 05/16/2016 [facility] URINE AND STOOL UA Protein Negative mg/dL Negative mg/dL 05/16/2016 [facility] URINE AND STOOL UA Glucose Negative mg/dL Negative mg/dL 05/16/2016 [facility] URINE AND STOOL UA Bili Negative *NA* (05/16/16 1:53 PM) Negative 05/16/2016 [facility] URINE AND STOOL UA Ketones Negative mg/dL Negative mg/dL 05/16/2016 [facility] Knee 3 views DX Knee 3 views DX Study: Right knee 3 views DX, Bone length scanogram DX Comparison: None TECHNIQUE: Multiple images of the right knee as well as right femur and right tibia/fibula were acquired. Clinical Indication: Arthritis, preoperative evaluation Comparison: None FINDINGS: Multiple views of the right knee as well as right femur and right tibia/fibula show no acute bony fracture or joint dislocation. Severe medial femorotibial and patellofemoral compartment osteoarthrosis is seen with severe joint space narrowing and marginal osseous spurring. Large joint effusion is present. Moderate lateral femorotibial compartment osteoarthrosis is seen. The visualized right hip as well as right ankle are unremarkable. IMPRESSION: Severe medial femorotibial and patellofemoral compartment osteoarthrosis of the right knee. SL: [id number] 05/16/2016 - - Read by: Khadar Thompson MD Dictated Date/time: 05/16/16 16:41 Electronically Signed by: Khadar Thompson MD 05/16/16 16:43 FINAL REPORT [facility] Bone length scanogram DX Bone length scanogram DX Study: Right knee 3 views DX, Bone length scanogram DX Comparison: None TECHNIQUE: Multiple images of the right knee as well as right femur and right tibia/fibula were acquired. Clinical Indication: Arthritis, preoperative evaluation Comparison: None FINDINGS: Multiple views of the right knee as well as right femur and right tibia/fibula show no acute bony fracture or joint dislocation. Severe medial femorotibial and patellofemoral compartment osteoarthrosis is seen with severe joint space narrowing and marginal osseous spurring. Large joint effusion is present. Moderate lateral femorotibial compartment osteoarthrosis is seen. The visualized right hip as well as right ankle are unremarkable. IMPRESSION: Severe medial femorotibial and patellofemoral compartment osteoarthrosis of the right knee. SL: [id number] 05/16/2016 - - Read by: Khadar Thompson MD Dictated Date/time: 05/16/16 16:41 Electronically Signed by: Khadar Thompson MD 05/16/16 16:43 FINAL REPORT [facility] Stomach emptying NM Stomach emptying NM Gastric emptying study. TECHNIQUE: 1 mCi of sulfur colloid meal was administered orally. Images were performed in anterior projection and an excretion curve plotted. FINDINGS: There is prompt activity identified within the stomach and prompt excretion into the small bowel thereafter. The slope of the excretion curve is flattened. The T half life is 142 minutes. (Normal range of 45min- 110min). % excretion at approx. 60 minutes: 12% % excretion at approx. 90 minutes: 18 % excretion at approx. 120 minutes: 41% % excretion at approx. 180 minutes: 61% % excretion at approx. 240 minutes: 79% IMPRESSION: Moderate delay in gastric emptying. SL:13 05/14/2015 - - Read by: Denver García MD Dictated Date/time: 05/14/15 16:14 Electronically Signed by: Denver García MD 05/14/15 16:15 FINAL REPORT [facility] Digital Mammo DX Uni MA Digital Mammo DX Uni MA - DIGITAL MAMMO DX UNI MA/R UNILATERAL RIGHT DIGITAL DIAGNOSTIC MAMMOGRAM: 04/20/2015 CLINICAL: Abnormal Mammogram. Comparison is made to exams dated: 03/02/2015 mammogram - [facility], 04/13/2009 mammogram and 04/19/2010 mammogram - [facility]. The tissue of the right breast is almost entirely fat. There is a new 3 mm area of grouped fine pleomorphic calcifications in the right breast at 4 o'clock middle depth 8.5 cm from the nipple. There are benign skin and vascular calcifications in the right breast. IMPRESSION: SUSPICIOUS OF MALIGNANCY The new 3 mm area of grouped fine pleomorphic calcifications in the right breast are suspicious of malignancy. A stereotactic biopsy is recommended. These results were discussed with the patient. SUMMARY: The staff from the [facility] with [facility] will contact the patient to schedule the biopsy. A separate report will be issued following the biopsy. Marlon Thakkar M.D. cm/:04/20/2015 15:52:43 Puller Over: Lissette MADERA (R)(Jorge), [facility] This exam was dictated and interpreted by [id number] for MAIRA Higuera 15. letter sent: Biopsy Mammogram BI-RADS: 4 Suspicious abnormality 04/20/2015 - - Read by: Gio Teixeira MD Dictated Date/time: 04/20/15 15:52 Electronically Signed by: Gio Teixeira MD 04/20/15 15:52 FINAL REPORT [facility] Gallbladder scan HIDA w meds NM Gallbladder scan HIDA w meds NM EXAM: HIDA scan and gallbladder ejection fraction study. HISTORY: Right upper quadrant abdominal pain, nausea COMPARISON: Ultrasound right upper quadrant 03/08/2015 TECHNIQUE: Approximately 6 mCi technetium 99m Choletec administered intravenously. Sequential static images of the right upper quadrant obtained for 1 hour. 2.5 mcg CCK given IV over 30 minutes. FINDINGS: The liver, intra and extrahepatic biliary tree and proximal small bowel loops are visualized in a normal manner. The gallbladder is visualized in a normal manner. The calculated gallbladder ejection fraction is 89 % (normal greater than 35%). IMPRESSION: 1. Normal HIDA scan. 2. Normal gallbladder ejection fraction of 89 %. SL: 17 03/30/2015 - - Read by: Danny Suggs MD Dictated Date/time: 03/30/15 15:12 Electronically Signed by: Danny Suggs MD 03/30/15 15:15 FINAL REPORT [facility] Abdomen RUQ US Abdomen RUQ US NAME: ADAL BRANHAM : 1950 SEX: F Ordering Physician: Andrew Armstrong Abdomen RUQ US : Mar 08, 2015 11:01:00 AM. CLINICAL INDICATION: abdominal pain. Comparison Examination: 05/26/2014 abdominal ultrasound. FINDINGS: TECHNIQUE: Grayscale and limited color sonographic evaluation of the right upper quadrant of the abdomen and gallbladder region was performed with standard technique. FINDINGS: LIVER: Increased echogenicity is identified to the liver consistent with fatty change. This limits the sensitivity to detection of liver masses by sonography. No gross focal liver abnormality identified. There appears to be a component of hepatomegaly. BILE DUCTS: The intrahepatic and extrahepatic bile ducts are not dilated with the common bile duct measuring 3.4 mm. The distal common bile duct is not well seen. GALLBLADDER: There are no gallstones, gallbladder sludge, pericholecystic fluid or wall thickening. PANCREAS: The visualized pancreas appears unremarkable. RIGHT KIDNEY: The right kidney measures 11.2 x 4.4 x 4.6 cm. No right pelvocaliectasis, right nephrolithiasis or right renal mass lesion. ASCITES: There is no right upper quadrant abdominal ascites. IMPRESSION: 1. Fatty change to the liver. 2. Component of hepatomegaly. 3. Otherwise unremarkable right upper quadrant abdominal ultrasound. SL: 14 03/08/2015 - - Read by: Malcolm Solares MD Dictated Date/time: 03/08/15 14:14 Electronically Signed by: Malcolm Solares MD 03/08/15 14:16 FINAL REPORT [facility] Digital Mammo Screen Jorge MA w marylou Digital Mammo Screen Jorge MA w marylou - DIGITAL MAMMO SCREEN JORGE MA W MARYLOU BILATERAL DIGITAL SCREENING MAMMOGRAM 3D/2D WITH CAD: 03/02/2015 CLINICAL: Check Up. 2D digital mammographic images and 3D digital tomosynthesis images were obtained in the CC and MLO projections. Current study was evaluated with a Computer Aided Detection (CAD) system. Comparison is made to exams dated: 04/19/2010 mammogram and 04/13/2009 mammogram - [facility]. The tissue of both breasts is almost entirely fat. There are benign calcifications in both breasts. There is a new 3 mm calcification in the right breast at 4 o'clock middle depth 8.5 cm from the nipple. No other significant masses, calcifications, or other findings are seen in either breast. There has been no significant interval change. IMPRESSION: INCOMPLETE: NEEDS ADDITIONAL IMAGING EVALUATION The new 3 mm calcification in the right breast is indeterminate. Magnification views are recommended. SUMMARY: The staff from [facility] with [facility] will contact the patient to schedule the additional studies. A separate report will be issued following interpretation of the additional studies. Marlon Thakkar M.D., cm/penrad:03/19/2015 10:44:52 Puller Over: Padmini MADERA(R)(Jorge), [facility] This exam was dictated and interpreted by [id number] for MAIRA Higuera 15. letter sent: Additional Imaging Mammogram BI-RADS: 0 Indeterminate 03/02/2015 - - Read by: Gio Teixeira MD Dictated Date/time: 03/19/15 10:44 Electronically Signed by: Gio Teixeira MD 03/19/15 10:44 FINAL REPORT [facility] Cardiac SPECT multi studies NM Cardiac SPECT multi studies NM Nuclear gated myocardial perfusion scan performed as per protocol at nuclear medicine lab at [facility]. This is a Sary scan protocol P. LexiScan injected 0.4 mg intravenously as a stress agent. Cardiolite is injected the 10 mCi for resting protocol and 30 mCi for stress protocol P. IMPRESSION: Apical and minute and distal anterior wall ischemia noted. Left ventricle ejection fraction is about 55%. No wall motion abnormality noted. Abnormal nuclear stress test as described above. 02/02/2015 - - Read by: Yisel Kaufman MD Dictated Date/time: 02/04/15 11:44 Electronically Signed by: Yisel Kaufman MD 02/04/15 11:48 FINAL REPORT [facility] Abdomen complete US Abdomen complete US ABDOMEN ULTRASOUND CLINICAL HISTORY: Abdominal pain. COMPARISON IMAGING: None. FINDINGS: Liver: Measures 19.6 cm in length (normal: 13-17 cm). Echogenicity suggests fatty infiltration and/or chronic hepatocellular disease. No suspicious lesion or surface nodularity. Portal vein is patent with hepatopedal flow. Biliary: No gallstones, gallbladder wall thickening, or sonographic Ashton's sign. There is no biliary duct dilation. Mid common bile duct measures 4 mm in diameter. Pancreas: No focal lesion. However, certain portions are obscured by overlying bowel gas and unable to be evaluated. Spleen: Measures 12.1 cm in maximal dimension (normal < 13 cm). No focal lesion is seen. Kidneys: Right and left measure 11.7 and 11.0 cm in length, respectively (normal: 9-12 cm). No hydronephrosis, suspicious renal mass, or large shadowing stone. Vascular: Visualized portions of the IVC are patent. No obvious aneurysmal dilatation of the aorta. IMPRESSION: Hepatomegaly with echogenicity suggestive of fatty infiltration and/or chronic hepatocellular disease. 05/26/2014 - - Read by: Ariadne Valdez DO Dictated Date/time: 05/26/14 13:07 Electronically Signed by: Ariadne Valdez DO 05/26/14 13:09 FINAL REPORT [facility] Vital Signs Vital Sign Value Date Comments Source Weight 154.5 03/29/2018 Enayet Rahim Height 62 03/29/2018 Enayet Rahim Temperature Oral (F) 98.6 F 03/29/2018 Enayet Rahim Diastolic (mm Hg) 85 03/29/2018 Enayet Rahim Systolic (mm Hg) 153 03/29/2018 Enayet Rahim Weight 154 03/12/2018 Enayet Rahim Height 62 03/12/2018 Enayet Rahim Temperature Oral (F) 98.1 F 03/12/2018 Enayet Rahim Diastolic (mm Hg) 77 03/12/2018 Enayet Rahim Systolic (mm Hg) 135 03/12/2018 Enayet Rahim Weight 152 01/07/2018 Enayet Rahim Height 62 01/07/2018 Enayet Rahim Temperature Oral (F) 97.4 F 01/07/2018 Enayet Rahim Diastolic (mm Hg) 75 01/07/2018 Enayet Rahim Systolic (mm Hg) 125 01/07/2018 Enayet Rahim Weight 149 11/13/2017 Enayet Rahim Height 62 11/13/2017 Enayet Rahim Temperature Oral (F) 97.0 F 11/13/2017 Enayet Rahim Diastolic (mm Hg) 70 11/13/2017 Enayet Rahim Systolic (mm Hg) 124 11/13/2017 Enayet Rahim Weight 153 09/28/2017 Enayet Rahim Height 62 09/28/2017 Enayet Rahim Temperature Oral (F) 97.5 F 09/28/2017 Enayet Rahim Diastolic (mm Hg) 64 09/28/2017 Enayet Rahim Systolic (mm Hg) 112 09/28/2017 Enayet Rahim Weight 147 08/22/2017 Enayet Rahim Height 62 08/22/2017 Enayet Rahim Temperature Oral (F) 97.1 F 08/22/2017 Enayet Rahim Diastolic (mm Hg) 66 08/22/2017 Enayet Rahim Systolic (mm Hg) 111 08/22/2017 Enayet Rahim Weight 139 08/01/2017 Enayet Rahim Height 62 08/01/2017 Enayet Rahim Temperature Oral (F) 98.9 F 08/01/2017 Enayet Rahim Diastolic (mm Hg) 70 08/01/2017 Enayet Rahim Systolic (mm Hg) 113 08/01/2017 Enayet Rahim Weight 143 07/03/2017 Enayet Rahim Height 62 07/03/2017 Enayet Rahim Temperature Oral (F) 97.3 F 07/03/2017 Enayet Rahim Diastolic (mm Hg) 64 07/03/2017 Enayet Rahim Systolic (mm Hg) 101 07/03/2017 Enayet Rahim BMI Calculated 26.39 07/03/2017 [facility] Weight 65.455 07/03/2017 [facility] Height 157.48 cm 07/03/2017 [facility] Weight 137.5 06/11/2017 [facility] Height 61 06/11/2017 [facility] Temperature Oral (F) 97.5 F 06/11/2017 [facility] Heart Rate 60 06/11/2017 [facility] Diastolic (mm Hg) 60 06/11/2017 [facility] Systolic (mm Hg) 118 06/11/2017 [facility] Weight 136.5 06/04/2017 Enayet Rahim Height 62 06/04/2017 Enay[facility] Temperature Oral (F) 96.4 F 06/04/2017 Enayet Rahim Diastolic (mm Hg) 77 06/04/2017 Enayet Rahim Systolic (mm Hg) 135 06/04/2017 En[facility] Weight 142 05/04/2017 Enayet Rahim Height 62 05/04/2017 Enayet Rahim Temperature Oral (F) 95.1 F 05/04/2017 Enayet Rahim Diastolic (mm Hg) 73 05/04/2017 Enayet Rahim Systolic (mm Hg) 123 05/04/2017 Enay[facility] Weight 145 01/24/2017 Enayet Rahim Height 62 01/24/2017 En[facility] Temperature Oral (F) 96.3 F 01/24/2017 Enayet Rah[facility] Diastolic (mm Hg) 74 01/24/2017 Enayet Rahim Systolic (mm Hg) 118 01/24/2017 Enayet Rahim Weight 149.4 01/22/2017 [facility] Height 61 01/22/2017 [facility] Temperature Oral (F) 96.8 F 01/22/2017 [facility] Heart Rate 68 01/22/2017 [facility] Diastolic (mm Hg) 60 01/22/2017 [facility] Systolic (mm Hg) 104 01/22/2017 [facility] Weight 151.1 01/08/2017 [facility] Height 61 01/08/2017 [facility] Temperature Oral (F) 97.1 F 01/08/2017 [facility] Diastolic (mm Hg) 68 01/08/2017 [facility] Systolic (mm Hg) 112 01/08/2017 [facility] Weight 149.3 12/06/2016 [facility] Height 61 12/06/2016 [facility] Temperature Oral (F) 96.6 F 12/06/2016 [facility] Heart Rate 60 12/06/2016 [facility] Diastolic (mm Hg) 68 12/06/2016 [facility] Systolic (mm Hg) 124 12/06/2016 [facility] Weight 150 11/14/2016 Enayet Rahim Height 62 11/14/2016 Enayet Rah[facility] Temperature Oral (F) 97.9 F 11/14/2016 Enayet Rah[facility] Diastolic (mm Hg) 78 11/14/2016 Enayet Rahim Systolic (mm Hg) 130 11/14/2016 Enayet Rahim Weight 150.9 11/06/2016 [facility] Height 61 11/06/2016 [facility] Temperature Oral (F) 96.5 F 11/06/2016 [facility] Heart Rate 68 11/06/2016 [facility] Diastolic (mm Hg) 70 11/06/2016 [facility] Systolic (mm Hg) 128 11/06/2016 [facility] Systolic (mm Hg) 131 10/10/2016 [facility] Diastolic (mm Hg) 79 10/10/2016 [facility] Respitory Rate 14 10/10/2016 [facility] Respitory Rate 16 10/10/2016 [facility] Heart Rate 61 10/10/2016 [facility] Respitory Rate 20 10/10/2016 [facility] Systolic (mm Hg) 125 10/10/2016 [facility] Diastolic (mm Hg) 60 10/10/2016 [facility] Heart Rate 58 10/10/2016 [facility] Systolic (mm Hg) 126 10/10/2016 [facility] Diastolic (mm Hg) 71 10/10/2016 [facility] Weight 67.273 10/10/2016 [facility] Height 157.48 cm 10/10/2016 [facility] BMI Calculated 27.13 10/10/2016 [facility] Temperature Oral (F) 98 F 10/10/2016 [facility] Heart Rate 73 10/10/2016 [facility] Weight 150.2 10/09/2016 En[facility] Height 62 10/09/2016 Enay[facility] Rah[facility] Temperature Oral (F) 96.5 F 10/09/2016 Enay[facility] Diastolic (mm Hg) 85 10/09/2016 Enayet Rahim Systolic (mm Hg) 121 10/09/2016 Enayet Rahim Weight 148.7 10/09/2016 [facility] Height 61 10/09/2016 [facility] Temperature Oral (F) 96.5 F 10/09/2016 [facility] Heart Rate 68 10/09/2016 [facility] Diastolic (mm Hg) 60 10/09/2016 [facility] Systolic (mm Hg) 122 10/09/2016 [facility] Respitory Rate 18 09/11/2016 [facility] Systolic (mm Hg) 99 09/11/2016 [facility] Diastolic (mm Hg) 66 09/11/2016 [facility] Weight 73.182 09/08/2016 [facility] Height 157.48 cm 09/08/2016 [facility] BMI Calculated 29.51 09/08/2016 [facility] Weight 164 09/04/2016 Enayet Rahim Height 62 09/04/2016 Enay[facility] Rah[facility] Temperature Oral (F) 97.9 F 09/04/2016 Enay[facility] Rah[facility] Diastolic (mm Hg) 107 09/04/2016 Enayet Rahim Systolic (mm Hg) 159 09/04/2016 Enay[facility] Rah[facility] Weight 164 08/29/2016 Enayet Rahim Height 62 08/29/2016 Enay[facility] Temperature Oral (F) 96.9 F 08/29/2016 Enay[facility] Diastolic (mm Hg) 76 08/29/2016 Enayet Rahim Systolic (mm Hg) 104 08/29/2016 [facility] Weight 170 07/19/2016 Enayet Rahim Height 62 07/19/2016 Enayet Rahim Temperature Oral (F) 97.1 F 07/19/2016 Enayet Rahim Diastolic (mm Hg) 80 07/19/2016 Enayet Rahim Systolic (mm Hg) 103 07/19/2016 [facility] Weight 174 07/10/2016 Enayet Rahim Height 62 07/10/2016 Enayet Rahim Temperature Oral (F) 97.3 F 07/10/2016 Enay[facility] Diastolic (mm Hg) 72 07/10/2016 Enayet Rahim Systolic (mm Hg) 100 07/10/2016 Enayet Rahim Systolic (mm Hg) 129 05/31/2016 [facility] Diastolic (mm Hg) 85 05/31/2016 [facility] Respitory Rate 18 05/31/2016 [facility] Heart Rate 81 05/31/2016 [facility] Temperature Oral (F) 98.1 F 05/31/2016 [facility] Systolic (mm Hg) 149 05/31/2016 [facility] Diastolic (mm Hg) 84 05/31/2016 [facility] Respitory Rate 18 05/31/2016 [facility] Heart Rate 74 05/31/2016 [facility] Temperature Oral (F) 98 F 05/31/2016 [facility] Respitory Rate 18 05/31/2016 [facility] Systolic (mm Hg) 137 05/31/2016 [facility] Diastolic (mm Hg) 87 05/31/2016 [facility] Temperature Oral (F) 98.4 F 05/31/2016 [facility] Heart Rate 72 05/31/2016 [facility] Weight 80.653 05/16/2016 [facility] BMI Calculated 33.6 05/16/2016 [facility] Height 154.94 cm 05/16/2016 [facility] Weight 187 04/10/2016 Enayet Rahim Height 62 04/10/2016 Enayet Rahim Temperature Oral (F) 97.0 F 04/10/2016 Enay[facility] Rah[facility] Diastolic (mm Hg) 71 04/10/2016 Enayet Rahim Systolic (mm Hg) 106 04/10/2016 En[facility] Weight 202 03/22/2016 Enayet Rahim Height 62 03/22/2016 Enay[facility] Rahim Temperature Oral (F) 97.2 F 03/22/2016 En[facility] Diastolic (mm Hg) 86 03/22/2016 Enayet Rahim Systolic (mm Hg) 132 03/22/2016 En[facility] Weight 208.2 02/10/2016 [id number] Height 60.3 02/10/2016 [id number] Temperature Oral (F) 98.3 F 02/10/2016 [id number] Heart Rate 62 02/10/2016 [id number] Diastolic (mm Hg) 90 02/10/2016 [id number] Systolic (mm Hg) 131 02/10/2016 [id number] Systolic (mm Hg) 154 03/08/2015 [facility] Diastolic (mm Hg) 84 03/08/2015 [facility] Respitory Rate 16 03/08/2015 [facility] Systolic (mm Hg) 168 03/08/2015 [facility] Diastolic (mm Hg) 92 03/08/2015 [facility] Respitory Rate 16 03/08/2015 [facility] Systolic (mm Hg) 152 03/08/2015 [facility] Diastolic (mm Hg) 83 03/08/2015 [facility] Respitory Rate 14 03/08/2015 [facility] BMI Calculated 55.19 03/05/2015 [facility] Weight 128.182 03/05/2015 [facility] Height 152.4 cm 03/05/2015 [facility] Height 154.94 cm 02/02/2015 [facility] Weight 126.364 02/02/2015 [facility] BMI Calculated 52.64 02/02/2015 [facility] Respitory Rate 16 12/30/2014 [facility] Systolic (mm Hg) 132 12/30/2014 [facility] Diastolic (mm Hg) 88 12/30/2014 [facility] Systolic (mm Hg) 132 12/30/2014 [facility] Diastolic (mm Hg) 68 12/30/2014 [facility] Respitory Rate 15 12/30/2014 [facility] Systolic (mm Hg) 141 12/30/2014 [facility] Diastolic (mm Hg) 71 12/30/2014 [facility] Respitory Rate 15 12/30/2014 [facility] Weight 128.182 12/30/2014 [facility] BMI Calculated 55.19 12/30/2014 [facility] Height 152.4 cm 12/30/2014 [facility] Encounters Location Location Details Encounter Type Encounter Number Reason For Visit Attending Provider ADM Date DC Date Status Source OD [id number] 789.04 - ABDMNAL PAIN LT CHATA TOR 09/12/2011 Active OPID [facility] [place] [facility] [id number] Kye Phillips II 05/26/2014 05/27/2014 [facility] OP Recurring [id number] Andrew Patti 12/04/2014 01/03/2015 [facility] Bedded Outpatient [id number] Andrew Patti 12/30/2014 12/30/2014 [facility] Outpatient [id number] Yisel Kaufman 02/02/2015 02/03/2015 [facility] [place] [facility] Di[facility] [id number] Kye Phillips II 03/02/2015 03/03/2015 [facility] [id number] Andrew Armstrong 03/08/2015 03/08/2015 [facility] Outpatient [id number] Andrew Cleaninganda 03/17/2015 03/18/2015 [facility] Outpatient [id number] Andrew Cleaninganda 03/30/2015 03/31/2015 [facility] [place] Out Diag Services [id number] Kye Nicolekathrin REYNA 04/20/2015 04/21/2015 OPID [facility] [place] OP Therapy Patients [id number] Dontae Bello 04/26/2015 05/26/2015 [facility] Outpatient [id number] Lynn Cruzneni 05/14/2015 05/15/2015 [facility] OP Therapy Patients [id number] Zeeshan Sienna 10/06/2015 11/05/2015 [facility] ESTABLISH PCP [id number] 02/10/2016 02/10/2016 [facility] ESTABLISH PCP [id number] 02/10/2016 02/10/2016 [facility] ESTABLISH PCP [id number] 02/10/2016 02/10/2016 [facility] ESTABLISH PCP [id number] 02/10/2016 02/10/2016 [facility] ESTABLISH PCP [id number] 02/10/2016 02/10/2016 [facility] ESTABLISH PCP [id number] 02/10/2016 02/10/2016 [facility] ESTABLISH PCP [id number] 02/10/2016 02/10/2016 [facility] ESTABLISH PCP [id number] 02/10/2016 02/10/2016 [facility] ESTABLISH PCP [id number] 02/10/2016 02/10/2016 [id number] [facility] ESTABLISH PCP [id number] 02/10/2016 02/10/2016 [facility] ESTABLISH PCP [id number] 02/10/2016 02/10/2016 [facility] ESTABLISH PCP [id number] 02/10/2016 02/10/2016 [facility] ESTABLISH PCP [id number] 02/10/2016 02/10/2016 [facility] ESTABLISH PCP [id number] 02/10/2016 02/10/2016 Melvina Richards MD, PA NEW PT [id number] 03/22/2016 03/22/2016 Melvina Richards MD, PA NEW PT [id number] 03/22/2016 03/22/2016 Melvina Richards MD, PA NEW PT [id number] 03/22/2016 03/22/2016 Melvina Richards MD, PA NEW PT [id number] 03/22/2016 03/22/2016 Melvina Richards MD, PA NEW PT [id number] 03/22/2016 03/22/2016 Melvina Richrads MD, PA NEW PT [id number] 03/22/2016 03/22/2016 Melvina Richards MD, PA NEW PT [id number] 03/22/2016 03/22/2016 Melvina Richadrs MD, PA NEW PT [id number] 03/22/2016 03/22/2016 Melvina Richards MD, PA NEW PT [id number] 03/22/2016 03/22/2016 Melvina Richards MD, PA NEW PT [id number] 03/22/2016 03/22/2016 Melvina Richards MD, PA NEW PT [id number] 03/22/2016 03/22/2016 Melvina Richards MD, PA NEW PT [id number] 03/22/2016 03/22/2016 Melvina Richards MD, PA Unknown [id number] 03/23/2016 03/23/2016 Melvina Richards MD, PA Unknown [id number] 03/23/2016 03/23/2016 Melvina Richards MD, PA Unknown [id number] 03/23/2016 03/23/2016 Melvina Richards MD, PA Unknown [id number] 03/23/2016 03/23/2016 Melvina Richards MD, PA Unknown [id number] 03/23/2016 03/23/2016 Melvina Richards MD, PA Unknown [id number] 03/23/2016 03/23/2016 Melvina Richards MD, PA Unknown [id number] 03/23/2016 03/23/2016 Melvina Richards MD, PA Unknown [id number] 03/23/2016 03/23/2016 Melvina Richards MD, PA Unknown [id number] 03/23/2016 03/23/2016 Melvina Richards MD, PA Unknown [id number] 03/23/2016 03/23/2016 Melvina Richards MD, PA Unknown [id number] 03/23/2016 03/23/2016 Melvina Richards MD, PA Unknown [id number] 03/23/2016 03/23/2016 eMlvina Richards MD, PA Unknown [id number] 03/23/2016 03/23/2016 Melvina Richards MD, PA Unknown [id number] 04/03/2016 04/03/2016 Melvina Richards MD, PA Unknown [id number] 04/03/2016 04/03/2016 Melvina Richards MD, PA Unknown [id number] 04/03/2016 04/03/2016 Melvina Richards MD, PA Unknown [id number] 04/03/2016 04/03/2016 Melvina Richards MD, PA Unknown [id number] 04/03/2016 04/03/2016 Melvina Richards MD, PA Unknown [id number] 04/03/2016 04/03/2016 Melvina Richards MD, PA Unknown [id number] 04/03/2016 04/03/2016 Melvina Richards MD, PA Unknown [id number] 04/03/2016 04/03/2016 Melvina Richards MD, PA Unknown [id number] 04/03/2016 04/03/2016 Melvina Richards MD, PA Unknown [id number] 04/03/2016 04/03/2016 Melvina Richards MD, PA Unknown [id number] 04/03/2016 04/03/2016 Melvina Richards MD, PA Other [id number] 04/06/2016 04/06/2016 Melvina Richards MD, PA Other [id number] 04/06/2016 04/06/2016 Melvina Richards MD, PA Other [id number] 04/06/2016 04/06/2016 Melvina Richards MD, PA Other [id number] 04/06/2016 04/06/2016 Melvina Richards MD, PA Other [id number] 04/06/2016 04/06/2016 Melvina Richards MD, PA Other [id number] 04/06/2016 04/06/2016 Melvina Richards MD, PA Other [id number] 04/06/2016 04/06/2016 Melvina Richards MD, PA Other [id number] 04/06/2016 04/06/2016 Melvina Richards MD, PA Other [id number] 04/06/2016 04/06/2016 Melvina Richards MD, PA Other [id number] 04/06/2016 04/06/2016 Melvina Richards MD, PA surgery clearance [id number] 04/10/2016 04/10/2016 Melvina Richards MD, PA surgery clearance [id number] 04/10/2016 04/10/2016 Melvina Richards MD, PA surgery clearance [id number] 04/10/2016 04/10/2016 Melvina Richards MD, PA surgery clearance [id number] 04/10/2016 04/10/2016 Melvina Richards MD, PA surgery clearance [id number] 04/10/2016 04/10/2016 Melvina Richards MD, PA surgery clearance [id number] 04/10/2016 04/10/2016 Melvina Richards MD, PA surgery clearance [id number] 04/10/2016 04/10/2016 Melvina Richards MD, PA surgery clearance [id number] 04/10/2016 04/10/2016 Melvina Richards MD, PA Unknown [id number] 04/14/2016 04/14/2016 Melvina Richards MD, PA Unknown [id number] 04/14/2016 04/14/2016 Melvina Richards MD, PA Unknown [id number] 04/14/2016 04/14/2016 Melvina Richards MD, PA Unknown [id number] 04/14/2016 04/14/2016 Melvina Richards MD, PA Unknown [id number] 04/14/2016 04/14/2016 Melvina Richards MD, PA Unknown [id number] 04/14/2016 04/14/2016 Melvina Richards MD, PA Unknown [id number] 04/14/2016 04/14/2016 Melvina Richards MD, PA Unknown [id number] 04/14/2016 04/14/2016 Melvina Richards MD, PA Unknown [id number] 04/14/2016 04/14/2016 Melvina Richards MD, PA Unknown [id number] 04/24/2016 04/24/2016 Melvina Richards MD, PA Unknown [id number] 04/24/2016 04/24/2016 Melvina Richards MD, PA Unknown [id number] 04/24/2016 04/24/2016 Melvina Richards MD, PA Unknown [id number] 04/24/2016 04/24/2016 Melvina Richards MD, PA Unknown [id number] 04/24/2016 04/24/2016 Melvina Richards MD, PA Unknown [id number] 04/24/2016 04/24/2016 Melvina Richards MD, PA Unknown [id number] 04/24/2016 04/24/2016 Melvina Richards MD, PA Unknown [id number] 04/28/2016 04/28/2016 Melvina Richards MD, PA Unknown [id number] 04/28/2016 04/28/2016 Melvina Richards MD, PA [facility] Refill on meds [id number] 04/28/2016 04/28/2016 Melvina Richards MD, PA [facility] Refill on meds [id number] 04/28/2016 04/28/2016 Melvina Richards MD, PA Unknown [id number] 04/28/2016 04/28/2016 Melvina Richards MD, PA Unknown [id number] 04/28/2016 04/28/2016 Melvina Richards MD, PA Unknown [id number] 04/28/2016 04/28/2016 Melvina Richards MD, PA Unknown [id number] 04/28/2016 04/28/2016 Melvina Richards MD, PA [facility] Refill on meds [id number] 04/28/2016 04/28/2016 Melvina Richards MD, PA [facility] Refill on meds [id number] 04/28/2016 04/28/2016 Melvina Richards MD, PA [facility] Refill on meds [id number] 04/28/2016 04/28/2016 Melvina Richards MD, PA [facility] Refill on meds [id number] 04/28/2016 04/28/2016 Melvina Richards [facility] In[facility] [id number] [facility]29[facility]2016 05/31/2016 [facility] Melvina Richards MD, PA Unknown [id number] 06/27/2016 06/27/2016 Melvina Richards MD, PA Unknown [id number] 06/27/2016 06/27/2016 Melvina Richards MD, PA Unknown [id number] 06/27/2016 06/27/2016 Melvina Richards MD, PA Unknown [id number] 06/27/2016 06/27/2016 Melvina Richards [facility] OP Therapy Patients [id number] Dontae Ace 07/05/2016 08/04/2016 [facility] Melvina Richards MD, PA 3 month f/u [id number] 07/10/2016 07/10/2016 Melvina Richards MD, PA 3 month f/u [id number] 07/10/2016 07/10/2016 Melvina Richards MD, PA 3 month f/u [id number] 07/10/2016 07/10/2016 Melvina Richards MD, PA Sick Visit [id number] 07/19/2016 07/19/2016 Melvina Richards MD, PA Sick Visit [id number] 07/19/2016 07/19/2016 Melvina Richards [facility] OP Therapy Patients [id number] Dontae Bello 08/10/2016 09/09/2016 [facility] Melvina Richards MD, PA Sick Visit [id number] 08/29/2016 08/29/2016 Melvina Richards [facility] Bedded Outpatient [id number] [facility] John 09/11/2016 09/11/2016 [facility] [place] OP Therapy Patients [id number] Dontae Schauder 09/18/2016 10/18/2016 [facility] Emergency [id number] Theodore Richter 10/10/2016 10/10/2016 [facility] [place] OP Therapy Patients [id number] Dontae Schauder 02/06/2017 03/08/2017 [facility] Outpatient [id number] Yisel Nullan 07/03/2017 07/04/2017 [facility] Procedures Procedure Code Date Perfomer Comments Source Aortofemoral angiogram [id number] [facility] Upper GI endoscopy [id number] [facility] Aortofemoral angiogram [id number] [facility] Upper GI endoscopy [id number] [facility] Aortofemoral angiogram [id number] [facility] [place] Knee replacement [id number] [facility] Upper GI endoscopy [id number] [facility] [place] Aortofemoral angiogram [id number] [facility] [place] [facility] endoscopy [id number] [facility] [place] Knee replacement [id number] [facility] Aortofemoral angiogram [id number] [facility] Upper GI endoscopy [id number] [facility]
--- OUTSIDE RECORDS SUMMARY | 2018-04-19 17:40 | XMS REPORT | Summary of Care ---
Author Organization Unknown Address Unknown Phone Unavailable Encounter HQ Danika_mic(DMITRIY) [id number] Date(s): 12/30/14 - 12/30/14 [facility] [address] [place] [address]- Discharge Disposition: Home Physician Attending: Andrew Armstrong MD Physician_Referring: Andrew Armstrong MD Vital Signs 1 2 3 Most recent to oldest [Reference Range]: 152.4 cm (12/30/14 8:17 AM) Height 132/88 mmHg (12/30/14 10:45 AM) 132/68 mmHg (12/30/14 10:30 AM) 141/71 mmHg *HI* (12/30/14 10:19 AM) Blood Pressure [90-140/60-90 mmHg] 16 BRMIN (12/30/14 10:45 AM) 15 BRMIN (12/30/14 10:30 AM) 15 BRMIN (12/30/14 10:19 AM) Respiratory Rate [14-20 BRMIN] 128.182 kg (12/30/14 8:17 AM) Weight 55.19 m2 (12/30/14 8:17 AM) Body Mass Index Problem List Condition Effective Dates Status Health Status Informant Bundle branch block, Active right(Confirmed) Allergies, Adverse Reactions, Alerts Substance Reaction Severity Status Cough Syrup Active iodine Active Medications aspirin 325 mg tablet 325 mg=1 tab, PO, Q4H, PRN Fever, # 60 tab, 0 Refill(s) Start Date: 12/30/14 Status: Ordered atorvastatin 20 mg oral tablet 20 mg=1 tab, PO, Bedtime, # 30 tab, 0 Refill(s) Start Date: 12/30/14 Status: Ordered Dulcolax Laxative =1 supp, MT, Daily, PRN constipation, # 5 supp, 0 Refill(s) Start Date: 12/30/14 Status: Ordered HYDROcodone-ibuprofen 5 mg-200 mg oral tablet 1 tab, PO, Q4H, PRN for pain, 0 Refill(s) Start Date: 12/30/14 Stop Date: 01/06/15 Status: Ordered metoprolol 25 mg oral tablet, extended release 25 mg=1 tab, PO, Daily, # 30 tab, 0 Refill(s) Start Date: 12/30/14 Status: Ordered NexIUM 40 mg oral delayed release capsule 40 mg=1 cap, PO, Daily, # 30 cap, 1 Refill(s) Start Date: 12/30/14 Status: Ordered Prilosec 40 mg oral delayed release capsule 40 mg=1 cap, PO, Daily, # 30 cap, 0 Refill(s) Start Date: 12/30/14 Status: Ordered Sodium Chloride 0.9% IV 1000 mL 1,000 mL, Rate: 25 ml/hr, Infuse over: 40 hr, Route: IV, Total Volume: 1,000, St art date: 12/30/14 8:17:00, Duration: 30 day, Stop date: 01/29/15 8:16:00 Start Date: 12/30/14 Stop Date: 12/30/14 Status: Discontinued Results No data available for this section Immunizations No data available for this section Procedures No data available for this section Social History Social History Type Response Smoking Status Never smoker; Exposure to Tobacco Smoke None; Cigarette Smoking Last 365 Days No; Reg Smoking Cessation Counseling No Assessment and Plan No data available for this section
--- OUTSIDE RECORDS SUMMARY | 2018-04-19 17:41 | XMS REPORT ---
Author Author Tatianna Hinton Organization [employer] Address Unknown Phone Unavailable Care Team Providers Care Journeyman Level Acoustic Analyst Name Role Phone Tatianna Hinton CP Unavailable Allergies, Adverse Reactions, Alerts Substance Reaction Event Type Morphine Sulfate Info Not Available Drug Allergy Iodine Info Not Available Drug Allergy Benadryl Info Not Available Drug Allergy Problems Problem Type Condition Code Onset Dates Condition Status Problem Arthralgia of knee, right M25.561 Active Problem Primary osteoarthritis, unspecified site M19.91 Active Problem Essential hypertension I10 Active Problem Anxiety disorder, unspecified F41.9 Active Problem Major depressive disorder, single episode, unspecified F32.9 Active Problem Intractable cyclical vomiting with nausea G43.A1 Active Problem Nausea R11.0 Active Problem Other dietary vitamin B12 deficiency anemia D51.3 Active Problem Primary insomnia F51.01 Active Problem Fatigue, unspecified type R53.83 Active Assessment Dehydration E86.0 Active Assessment Dizziness and giddiness R42 Active Problem Anxiety F41.9 Active Assessment Volume depletion E86.9 Active Problem S/P bariatric surgery Z98.84 Active Medications Medication Code System Code Instructions Start Date End Date Status Dosage Quinapril HCl [facility] [address]-77 20 MG Orally Once a day Active 1 tablet Zofran ODT [facility] [address]-22 4 MG Orally three times a day (tid) as needed (prn) September 04, 2016 Active 1 tablet on the tongue and allow to dissolve Furosemide [facility] [address]-52 20 MG Orally Twice a day Active 1 tablet Xanax [facility] [address]-56 0.25 MG Orally daily prn anxiety September 04, 2016 Active 1 tablet Medical Compression Stockings [facility] [address] as directed daily Mar 22, 2016 Active as directed Ferrous Sulfate [facility] [address]-91 220 (44 Fe) MG/5ML Orally Twice a day Jul 10, 2016 Active 5 ml Venlafaxine HCl [facility] [address]-43 25 MG Orally daily August 29, 2016 Active 1 tablet with food Atorvastatin Calcium [facility] 83436180527 20 MG Orally once every night Active 1 tablet Cyanocobalamin [facility] [address] 1000 MCG Sublingual Once a day Jul 10, 2016 December 07, 2016 Active 1 tablet under the tongue and allow to dissolve Diazepam [facility] [address]-61 10 MG Orally once every night Aug 07, 2016 Active 1 tablet as needed Gabapentin [facility] [address]-96 100 MG Orally once every night August 29, 2016 Active 2 capsule Aspirin [facility] [address]-54 Active not defined Hydrocodone-Acetaminophen [facility] [address]-56 5-325 MG Orally every 6 hrs Active 1 tablet as needed Cyanocobalamin [facility] 13031-[address]89 2500 MCG Sublingual Once a day Jul 19, 2016 October 17, 2016 Active as directed Vital Signs Date/Time: October 09, 2016 BMI 27.47 Index Weight 150.2 lbs Height 62 in Temperature 96.5 F Blood Pressure Diastolic 85 mm Hg Blood Pressure Systolic 121 mm Hg Results No Known Results Summary Purpose [employer] Submission
--- OUTSIDE RECORDS SUMMARY | 2018-04-19 17:41 | XMS REPORT ---
Author Author Zeeshan El Organization [employer] Address Unknown Phone Unavailable Care Team Providers Care Rubber Vulcanizing Machine Operator Name Role Phone Zeeshan El CP Unavailable Allergies No Known Allergies Problems Problem Type Condition Code Onset Dates Condition Status Problem Morbid (severe) obesity due to excess calories E66.01 Active Problem Primary osteoarthritis of right knee M17.11 Active Problem [facility] (current) use 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 Z79.891 Active Assessment Spasm of muscle M62.838 Active Problem Nutritional deficiency E63.9 Active Problem Radiculopathy, lumbar region M54.16 Active Problem Spasm of muscle M62.838 Active Problem Chronic pain syndrome G89.4 Active Problem Primary osteoarthritis of left knee M17.12 Active Problem Pain in joint of left knee M25.562 Active Problem Pain in joint of right knee M25.561 Active Medications Medication Code System Code Instructions Start Date End Date Status Dosage Robaxin-750 [facility] [address]-93 750 MG Orally every 8 hrs PRN December 29, 2016 Jan 28, 2017 Active 1 tablet Results No Known Results Summary Purpose [employer] Submission
--- OUTSIDE RECORDS SUMMARY | 2018-04-19 17:41 | XMS REPORT ---
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 Problem Morbid (severe) obesity due to excess calories E66.01 Active Problem Radiculopathy, lumbar region M54.16 Active Problem Pain in joint of left knee M25.562 Active Problem Nutritional deficiency E63.9 Active Problem Primary osteoarthritis of left knee M17.12 Active Problem Primary osteoarthritis of right knee M17.11 Active Problem Pain in joint of right knee M25.561 Active Problem Chronic pain syndrome G89.4 Active Assessment Nutritional deficiency E63.9 Active Assessment Muscle spasm M62.838 Active Assessment Primary osteoarthritis of right knee M17.11 Active Assessment Pain in joint of right knee M25.561 Active Assessment Radiculopathy, lumbar region M54.16 Active Assessment Morbid (severe) obesity due to excess calories E66.01 Active Assessment residential (current) use 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 Z79.891 Active Assessment Pain in joint of left knee M25.562 Active Assessment Primary osteoarthritis of left knee M17.12 Active Medications Medication Code System Code Instructions Start Date End Date Status Dosage Vitamin B-12 [facility] [address] Orally once a month Active not defined [place] [facility] [address]-22 10-325 MG Orally QID Active 1 tablet as needed Metoprolol & Diet Manage Prod NDC 0 50 MG Orally Active as directed Omeprazole [facility] [address]-16 40 MG Orally Once a day Active 1 capsule Robaxin-750 [facility] [address]-77 750 MG Orally TID December 06, 2016 January 05, 2017 Active 1 tablet Diclofenac Sodium [facility] [address]-48 1 % Transdermal Four times a day Active 2g Quinapril HCl [facility] [address]-25 40 MG Orally Once a day Active 1tab TID PRN #120 NRF Vital Signs Date/Time: December 06, 2016 BMI 28.21 Index Weight 149.3 lbs Height 61 in Temperature 96.6 F Cardiac Monitoring Heart Rate 60 /min Blood Pressure Diastolic 68 mm Hg Blood Pressure Systolic 124 mm Hg Results No Known Results Summary Purpose [employer] Submission
--- OUTSIDE RECORDS SUMMARY | 2018-04-19 17:41 | XMS REPORT ---
Author Author Zeeshan El Organization [employer] Address Unknown Phone Unavailable Care Team Providers Care Precision Printing Worker Name Role Phone Zeeshan El CP Unavailable Allergies No Known Allergies Problems Problem Type Condition Code Onset Dates Condition Status Problem Chronic pain syndrome G89.4 Active Problem Morbid (severe) obesity due to excess calories E66.01 Active Problem halfway (current) use 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 Z79.891 Active Problem Nutritional deficiency E63.9 Active Problem Radiculopathy, lumbar region M54.16 Active Problem Spasm of muscle M62.838 Active Problem Primary osteoarthritis of left knee M17.12 Active Problem Primary osteoarthritis of right knee M17.11 Active Problem Pain in joint of left knee M25.562 Active Problem Pain in joint of right knee M25.561 Active Medications No Known Medications Results No Known Results Summary Purpose [employer] Submission
--- OUTSIDE RECORDS SUMMARY | 2018-04-19 17:41 | XMS REPORT ---
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.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 Active Problem Nutritional deficiency E63.9 Active Problem Radiculopathy, lumbar region M54.16 Active Problem Spasm of muscle M62.838 Active Problem Chronic pain syndrome G89.4 Active Problem Primary osteoarthritis of left knee M17.12 Active Problem Pain in joint of left knee M25.562 Active Problem Pain in joint of right knee M25.561 Active Assessment Muscle spasm M62.838 Active Assessment Morbid (severe) obesity due to excess calories E66.01 Active Assessment Primary osteoarthritis of right knee M17.11 Active Assessment Nutritional deficiency E63.9 Active Assessment Radiculopathy, lumbar region M54.16 Active Assessment care home (current) use 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 Z79.891 Active Assessment Pain in joint of left knee M25.562 Active Assessment Primary osteoarthritis of left knee M17.12 Active Assessment Pain in joint of right knee M25.561 Active Assessment Chronic pain syndrome G89.4 Active Medications Medication Code System Code Instructions Start Date End Date Status Dosage Vitamin B-12 [facility] [address] Orally once a month Active not defined Robaxin-750 [facility] [address]-17 750 MG Orally every 8 hrs PRN December 29, 2016 Jan 28, 2017 Active 1 tablet Diclofenac Sodium [facility] [address]-56 1 % Transdermal Four times a day Active 2g Metoprolol & Diet Manage Prod NDC 0 50 MG Orally Active as directed Quinapril HCl [facility] [address]-99 40 MG Orally Once a day Active 1tab TID PRN #120 NRF Omeprazole [facility] [address]-73 40 MG Orally Once a day Active 1 capsule [place] [facility] [address]-19 10-325 MG Orally QID Active 1 tablet as needed Vital Signs Date/Time: January 08, 2017 BMI 28.55 Index Weight 151.1 lbs Height 61 in Temperature 97.1 F Blood Pressure Diastolic 68 mm Hg Blood Pressure Systolic 112 mm Hg Results No Known Results Summary Purpose [employer] Submission
--- OUTSIDE RECORDS SUMMARY | 2018-04-19 17:41 | XMS REPORT ---
Author Author Zeeshan El Organization [employer] Address Unknown Phone Unavailable Care Team Providers Care Holder Pile Driving Name Role Phone Zeeshan El CP Unavailable [...]
--- OUTSIDE RECORDS SUMMARY | 2018-04-19 17:41 | XMS REPORT ---
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 Z79.891 Active [...] Problem Chronic pain syndrome G89.4 Active Assessment Pain in joint of left knee M25.562 Active Assessment Morbid (severe) obesity due to excess calories E66.01 Active Assessment Radiculopathy, lumbar region M54.16 Active Assessment Primary osteoarthritis of right knee M17.11 Active Assessment Primary osteoarthritis of left knee M17.12 Active Assessment [facility] (current) use 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 Z79.891 Active Assessment Pain in joint of right knee M25.561 Active Assessment Nutritional deficiency E63.9 Active Medications Medication Code System Code Instructions Start Date End Date Status Dosage Quinapril HCl [facility] [address]-21 40 MG Orally Once a day Active 1tab TID PRN #120 NRF Ondansetron [facility] [address]-79 4 MG Orally every 8 hrs November 06, 2016 Active 1 tablet on the tongue and allow to dissolve Omeprazole [facility] [address]-73 40 MG Orally Once a day Active 1 capsule Metoprolol & Diet Manage Prod NDC 0 50 MG Orally Active as directed Diazepam [facility] [address]-38 5 MG Orally prn November 06, 2016 Active half tablet [place] [facility] [address]-58 10-325 MG Orally QID Active 1 tablet as needed Diclofenac Sodium [facility] [address]-70 1 % Transdermal Four times a day Active 2g Flexeril [facility] 81193666414 10 MG November 06, 2016 Active TAKE 1 TABLET BY MOUTH AT BEDTIME NEEDED Vitamin B-12 [facility] [address] Orally once a month Active not defined Vital Signs Date/Time: November 06, 2016 BMI 28.51 Index Weight 150.9 lbs Height 61 in Temperature 96.5 F Cardiac Monitoring Heart Rate 68 /min Blood Pressure Diastolic 70 mm Hg Blood Pressure Systolic 128 mm Hg Results No Known Results Summary Purpose [employer] Submission
--- OUTSIDE RECORDS SUMMARY | 2018-04-19 17:41 | XMS REPORT | Summary of Care ---
Author Author [facility] Organization [facility] Address Unknown Phone Unavailable Encounter HQ [place](FIN) [id number] Date(s): 07/03/17 - 07/03/17 [facility] [address] [place] [address]- [phone] Encounter Diagnosis Abnormal electrocardiogram [ECG] [EKG] (Final) - 07/06/17 Discharge Disposition: Home or Self Care Attending Physician: Yisel Kaufman MD Referring Physician: Yisel Kaufman MD Vital Signs Most recent to 1 oldest [Reference Range]: Height 157.48 cm (07/03/17 10:00 AM) Weight 65.455 kg (07/03/17 10:00 AM) Body Mass Index 26.39 m2 (07/03/17 10:00 AM) Problem List Condition Effective Dates Status Health Status Informant Bundle branch block, Active right(Confirmed) GERD Resolved (gastroesophageal reflux disease)(Confirmed) Acid Active reflux(Confirmed) Hiatal Resolved hernia(Confirmed) High Resolved cholesterol(Confirme d) History of gastric Resolved ulcer(Confirmed) HTN Resolved (hypertension)(Confi rmed) Hypertension(Confirm Active ed) Morbid Resolved obesity(Confirmed) Rheumatoid Resolved arthritis(Confirmed) Allergies, Adverse Reactions, Alerts Substance Reaction Severity Status iodine topical Active codeine Active morphine Active Cough Syrup Active Benadryl Active iodine Active Medications No data available for this section Results No data available for this section Immunizations Given and Recorded Vaccine Date Status Refusal Reason pneumococcal 13-valent vaccine 05/30/16 Given Procedures Procedure Date Related Diagnosis Body Site Status Aortofemoral angiogram Completed Knee replacement Completed Upper GI endoscopy Completed Social History Social History Type Response Alcohol Never Smoking Status Never smoker; Exposure to Tobacco Smoke None; Cigarette Smoking Last 365 Days No; Reg Smoking Cessation Counseling No entered on: 10/10/16 Assessment and Plan No data available for this section
--- OUTSIDE RECORDS SUMMARY | 2018-04-19 17:41 | XMS REPORT | Summary of Care ---
Author Author [facility] Organization [facility] Address Unknown Phone Unavailable Encounter TANVIR [place](DMITRIY) [id number] Date(s): 10/10/16 - 10/10/16 [facility] [address] [place] [address]- Discharge Diagnosis: Dehydration Discharge Disposition: Home or Self Care Attending Physician: Theodore Richter DO Vital Signs 1 2 3 Most recent to oldest [Reference Range]: 157.48 cm (10/10/16 10:14 AM) Height 98 DegF (10/10/16 10:14 AM) Temperature Oral [96.4-99.1 DegF] 131/79 mmHg (10/10/16 3:04 PM) 125/60 mmHg (10/10/16 11:20 AM) 126/71 mmHg (10/10/16 11:15 AM) Blood Pressure [90-140/60-90 mmHg] 14 BRMIN (10/10/16 3:04 PM) 16 BRMIN (10/10/16 2:03 PM) 20 BRMIN (10/10/16 1:48 PM) Respiratory Rate [14-20 BRMIN] 61 bpm (10/10/16 2:03 PM) 58 bpm *LOW* (10/10/16 11:15 AM) 73 bpm (10/10/16 10:14 AM) Peripheral Pulse Rate [60-100 bpm] 67.273 kg (10/10/16 10:14 AM) Weight 27.13 m2 (10/10/16 10:14 AM) Body Mass Index Problem List Condition Effective Dates Status Health Status Informant Bundle branch block, Active right(Confirmed) GERD Resolved (gastroesophageal reflux disease)(Confirmed) Acid Active reflux(Confirmed) Hiatal Resolved hernia(Confirmed) High Resolved cholesterol(Confirme d) History of gastric Resolved ulcer(Confirmed) HTN Resolved (hypertension)(Confi rmed) Hypertension(Confirm Active ed) Morbid Resolved obesity(Confirmed) Rheumatoid Resolved arthritis(Confirmed) Allergies, Adverse Reactions, Alerts Substance Reaction Severity Status Benadryl Active codeine Active Cough Syrup Active iodine Active iodine topical Active morphine Active Medications Lactated Ringers (Bolus) IV 1,000 mL, 1,000 ml/hr, Infuse Over: 1 hr, Route: IV, ONCE, Priority: STAT, Dosin g Weight 67.273 kg, Start date: 10/10/16 12:56:00 CDT, Duration: 1 doses or time s, Stop date: 10/10/16 12:56:00 CDT Start Date: 10/10/16 Stop Date: 10/10/16 Status: Completed Lactated Ringers 1,000 mL 1,000 mL, Rate: 2,000 ml/hr, Infuse over: 0.5 hr, Route: IV, Dosing Weight 67.27 3 kg, Total Volume: 1,000, Start date: 10/10/16 11:41:00 CDT, Duration: 1 doses or times, Stop date: 10/10/16 12:10:00 CDT Start Date: 10/10/16 Stop Date: 10/10/16 Status: Completed NS (Bolus) IV 1,000 mL, 1,000 ml/hr, Infuse Over: 1 hr, Route: IV, 1,000, Drug form: INJ, ONCE , Priority: STAT, Dosing Weight 67.273 kg, Start date: 10/10/16 10:44:00 CDT, Du ration: 1 doses or times, Stop date: 10/10/16 10:44:00 CDT Start Date: 10/10/16 Stop Date: 10/10/16 Status: Completed potassium chloride 20 mEq oral tablet, extended release 20 mEq, 1 tab, Route: PO, Drug form: ERTAB, ONCE, Dosing Weight 67.273, kg, Prio rity: STAT, Start date: 10/10/16 11:42:00 CDT, Stop date: 10/10/16 11:42:00 CDT Notes: (Same as: K-Dur 20)"Do Not Crush" With food and full glass of water Start Date: 10/10/16 Stop Date: 10/10/16 Status: Completed Saline Flush 0.9% 10 mL, Route: IVP, Drug Form: INJ, Dosing Weight 67.273, kg, PRN, PRN Line Flush , Start date: 10/10/16 10:37:00 CDT, Duration: 30 day, Stop date: 11/09/16 10:36 :00 CDT Notes: (Same as: BD Posiflush) Start Date: 10/10/16 Stop Date: 10/10/16 Status: Discontinued Results ELECTROLYTES Most recent to 1 oldest [Reference Range]: Sodium Lvl [135-145 144 mEq/L mEq/L] (10/10/16 11:04 AM) Potassium Lvl 3.4 mEq/L [3.5-5.1 mEq/L] *LOW* (10/10/16 11:04 AM) Chloride Lvl [95-109 111 mEq/L mEq/L] *HI* (10/10/16 11:04 AM) CO2 [24-32 mEq/L] 24 mEq/L (10/10/16 11:04 AM) AGAP [10.0-20.0 12.4 mEq/L mEq/L] (10/10/16 11:04 AM) CHEM PANEL Most recent to 1 oldest [Reference Range]: Creatinine Lvl 0.48 mg/dL [0.50-1.40 mg/dL] *LOW* (10/10/16 11:04 AM) eGFR 103 mL/min/1.73m2 1 *NA* (10/10/16 11:04 AM) BUN [7-22 mg/dL] 6 mg/dL *LOW* (10/10/16 11:04 AM) B/C Ratio [6-25] 12 (10/10/16 11:04 AM) Glucose Lvl [70-99 75 mg/dL mg/dL] (10/10/16 11:04 AM) Total Protein 4.5 g/dL [6.4-8.4 g/dL] *LOW* (10/10/16 11:04 AM) Albumin Lvl [3.5-5.0 2.3 g/dL g/dL] *LOW* (10/10/16 11:04 AM) Globulin [2.7-4.2 2.2 g/dL g/dL] *LOW* (10/10/16 11:04 AM) A/G Ratio [0.7-1.6] 1.0 (10/10/16 11:04 AM) Calcium Lvl 7.9 mg/dL [8.5-10.5 mg/dL] *LOW* (10/10/16 11:04 AM) Phosphorus [2.5-4.5 3.2 mg/dL mg/dL] (10/10/16 11:04 AM) Magnesium Lvl 2.0 mg/dL [1.8-2.4 mg/dL] (10/10/16 11:04 AM) ALT [0-65 unit/L] 44 unit/L (10/10/16 11:04 AM) AST [0-37 unit/L] 45 unit/L *HI* (10/10/16 11:04 AM) Alk Phos [39-136 87 unit/L unit/L] (10/10/16 11:04 AM) Bili Total [0.2-1.3 0.6 mg/dL mg/dL] (10/10/16 11:04 AM) 1Result Comment: The eGFR is calculated using the [...] from the National Kidney Disease Education Program ( NKDEP) which additionally recommends that when the eGFR is used in patients with extremes of body mass index for purposes of drug dosing, the eGFR should be mul tiplied by the estimated BMI. CARDIAC ENZYMES Most recent to 1 oldest [Reference Range]: Total CK [12-191 24 unit/L unit/L] (10/10/16 11:04 AM) CK MB [0.5-3.6 <0.5 ng/mL ng/mL] (10/10/16 11:04 AM) CK MB Index <2.1 [0.0-2.5] (10/10/16 11:04 AM) Troponin-I <0.02 ng/mL [0.00-0.40 ng/mL] (10/10/16 11:04 AM) HEMATOLOGY Most recent to 1 oldest [Reference Range]: WBC [3.7-10.4 K/CMM] 2.8 K/CMM *LOW* (10/10/16 11:04 AM) RBC [4.20-5.40 2.77 M/CMM M/CMM] *LOW* (10/10/16:04 AM) Hgb [12.0-16.0 g/dL] 9.9 g/dL *LOW* (10/10/16 11:04 AM) Hct [36.0-48.0 %] 29.0 % *LOW* (10/10/1604 AM) MCV [80.0-98.0 fL] 104.5 fL *HI* (10/10/16:04 AM) MCH [27.0-31.0 pg] 35.8 pg *HI* (10/10/16:04 AM) MCHC [32.0-36.0 34.2 g/dL g/dL] (10/10/16 11:04 AM) RDW [11.5-14.5 %] 14.4 % (10/10/16 11:04 AM) Platelet [133-450 149 K/CMM K/CMM] (10/10/16 11:04 AM) MPV [7.4-10.4 fL] 7.3 fL *LOW* (10/10/16:04 AM) Segs [45.0-75.0 %] 51.6 % (10/10/16 11:04 AM) Lymphocytes 33.2 % [20.0-40.0 %] (10/10/16 11:04 AM) Monocytes [2.0-12.0 12.5 % %] *HI* (10/10/16:04 AM) Eosinophils [0.0-4.0 1.9 % %] (10/10/16 11:04 AM) Basophils [0.0-1.0 0.8 % %] (10/10/16 11:04 AM) Segs-Bands # 1.4 K/CMM [1.5-8.1 K/CMM] *LOW* (10/10/16 11:04 AM) Lymphocytes # 0.9 K/CMM [1.0-5.5 K/CMM] *LOW* (10/10/16 11:04 AM) Monocytes # [0.0-0.8 0.3 K/CMM K/CMM] (10/10/16 11:04 AM) Eosinophils # 0.1 K/CMM [0.0-0.5 K/CMM] (10/10/16 11:04 AM) Macrocyte [None 2+ Seen] *ABN* (10/10/16 11:04 AM) Immunizations Given and Recorded Vaccine Date Status Refusal Reason pneumococcal 13-valent vaccine 05/30/16 Given Procedures Procedure Date Related Diagnosis Body Site Aortofemoral angiogram Knee replacement Upper GI endoscopy Social History Social History Type Response Alcohol Never Smoking Status Never smoker; Exposure to Tobacco Smoke None; Cigarette Smoking Last 365 Days No; Reg Smoking Cessation Counseling No Assessment and Plan No data available for this section
--- OUTSIDE RECORDS SUMMARY | 2018-04-19 17:41 | XMS REPORT | Summary of Care ---
Author Author [facility] Organization [facility] Address Unknown Phone Unavailable Encounter [facility](FIN) [id number] Date(s): 07/03/17 - 07/03/17 [facility] [address] [place] [address]- Discharge Disposition: Home or Self Care Attending [...]
--- OUTSIDE RECORDS SUMMARY | 2018-04-19 17:41 | XMS REPORT | Summary of Care ---
Author Author [facility] Address Unknown Phone Unavailable Encounter [facility](FIN) [id number] Date(s): 02/06/17 - 03/07/17 [facility] Discharge Disposition: Home or Self Care Attending Physician: Dontae Bello MD Vital Signs [...] Active iodine topical Active morphine Active Medications No data available for this [...]
--- OUTSIDE RECORDS SUMMARY | 2018-04-19 17:41 | XMS REPORT | Summary of Care ---
Author Author [facility] Address Unknown Phone Unavailable Encounter [facility](FIN) [id number] Date(s): 07/05/16 - 08/03/16 [facility] Discharge Disposition: Home or Self Care [...]
--- OUTSIDE RECORDS SUMMARY | 2018-04-19 17:41 | XMS REPORT ---
Author Author Tatianna Hinton Organization [employer] Address Unknown Phone Unavailable Care Team Providers Care Silver Solution Mixer Name Role Phone Tatianna Hinton CP Unavailable [...] Problem Fatigue, unspecified type R53.83 Active Assessment Anxiety disorder, unspecified F41.9 Active Assessment Major depressive disorder, single episode, unspecified F32.9 Active Assessment Dehydration E86.0 Active Problem Anxiety F41.9 Active Assessment S/P bariatric surgery Z98.84 Active Problem S/P bariatric surgery Z98.84 Active Medications Medication Code System Code Instructions Start Date End Date Status Dosage Celexa [facility] [address]-20 20 MG Orally Once a day November 14, 2016 Active 1 tablet Aspirin [facility] [address]-34 Active not defined Gabapentin [facility] [address]-02 100 MG Orally once every night August 29, 2016 Active 2 capsule Furosemide [facility] [address]-95 20 MG Orally Twice a day Active 1 tablet Keflex [facility] [address]-92 250 MG Orally twice a day (bid) November 14, 2016 November 21, 2016 Active 1 capsule Hydrocodone-Acetaminophen [facility] [address]-98 5-325 MG Orally every 6 hrs Active 1 tablet as needed Xanax [facility] [address]-39 0.25 MG Orally daily prn anxiety September 04, 2016 Active 1 tablet Atorvastatin Calcium [facility] 23791810345 20 MG Orally once every night Active 1 tablet Medical Compression Stockings [facility] [address]35-[address]99 as directed daily Mar 22, 2016 Active as directed Cyanocobalamin [facility] 17360-[address]81 1000 MCG Sublingual Once a day Jul 10, 2016 December 07, 2016 Active 1 tablet under the tongue and allow to dissolve Venlafaxine HCl [facility] [address]-23 25 MG Orally daily August 29, 2016 Active 1 tablet with food Zofran ODT [facility] [address]-71 4 MG Orally three times a day (tid) as needed (prn) September 04, 2016 Active 1 tablet on the tongue and allow to dissolve Diazepam [facility] [address]-72 10 MG Orally once every night Aug 07, 2016 Active 1 tablet as needed Alprazolam [facility] [address]-97 0.25 MG Orally once a day as needed for panic attack November 14, 2016 Active 1 tablet Ferrous Sulfate [facility] [address]-45 220 (44 Fe) MG/5ML Orally Twice a day Jul 10, 2016 Active 5 ml Quinapril HCl [facility] [address]-51 20 MG Orally Once a day Active 1 tablet Vital Signs Date/Time: November 14, 2016 BMI 27.43 Index Weight 150 lbs Height 62 in Temperature 97.9 F Blood Pressure Diastolic 78 mm Hg Blood Pressure Systolic 130 mm Hg Results No Known Results Summary Purpose [employer] Submission
--- OUTSIDE RECORDS SUMMARY | 2018-04-19 17:41 | XMS REPORT ---
Author Author Tatianna Hinton Organization [employer] Address Unknown Phone Unavailable Care Team Providers Care Bag Patcher Name Role Phone Tatianna Hinton CP Unavailable [...] Fatigue, unspecified type R53.83 Active Assessment Anxiety F41.9 Active Assessment Intractable cyclical vomiting with nausea G43.A1 Active Problem Anxiety F41.9 Active Problem S/P bariatric surgery Z98.84 Active Medications Medication Code System Code Instructions Start Date End Date Status Dosage Medical Compression Stockings [facility] [address] as directed daily Mar 22, 2016 Active as directed Hydrocodone-Acetaminophen [facility] [address]-37 5-325 MG Orally every 6 hrs Active 1 tablet as needed Diazepam [facility] [address]-86 10 MG Orally once every night Aug 07, 2016 Active 1 tablet as needed Xanax [facility] [address]-85 0.25 MG Orally daily prn anxiety September 04, 2016 Active 1 tablet Zofran ODT [facility] [address]-70 4 MG Orally three times a day (tid) as needed (prn) September 04, 2016 Active 1 tablet on the tongue and allow to dissolve Aspirin [facility] [address]-93 Active not defined Ferrous Sulfate [facility] [address]-96 220 (44 Fe) MG/5ML Orally Twice a day Jul 10, 2016 Active 5 ml Venlafaxine HCl [facility] [address]-78 25 MG Orally daily August 29, 2016 Active 1 tablet with food Atorvastatin Calcium [facility] 91441878869 20 MG Orally once every night Active 1 tablet Cyanocobalamin [facility] [address]-35 1000 MCG Sublingual Once a day Jul 10, 2016 December 07, 2016 Active 1 tablet under the tongue and allow to dissolve Diazepam [facility] [address]-63 10 MG Orally twice a day (bid) September 04, 2016 Inactive 1 tablet as needed Gabapentin [facility] [address]-99 100 MG Orally once every night August 29, 2016 Active 2 capsule Quinapril HCl [facility] [address]-77 20 MG Orally Once a day Active 1 tablet Furosemide [facility] [address]-84 20 MG Orally Twice a day Active 1 tablet Cyanocobalamin [facility] 59835-[address]82 2500 MCG Sublingual Once a day Jul 19, 2016 October 17, 2016 Active as directed Vital Signs Date/Time: September 04, 2016 BMI 29.99 Index Weight 164 lbs Height 62 in Temperature 97.9 F Blood Pressure Diastolic 107 mm Hg Blood Pressure Systolic 159 mm Hg Results No Known Results Summary Purpose [employer] Submission
--- OUTSIDE RECORDS SUMMARY | 2018-04-19 17:41 | XMS REPORT | Summary of Care ---
Author Author [facility] Organization [facility] Address Unknown Phone Unavailable Encounter [facility](DMITRIY) [id number] Date(s): 05/29/16 - 05/31/16 [facility] [address] [place] [address]- Discharge Disposition: Home or Self Care Attending Physician: Dontae Bello MD Admitting Physician: Dontae Bello MD Referring Physician: Dontae Bello MD Vital Signs 1 2 3 Most recent to oldest [Reference Range]: 154.94 cm (05/16/16 1:47 PM) Height 98.1 DegF (05/31/16 11:42 AM) 98 DegF (05/31/16 7:42 AM) 98.4 DegF (05/31/16 4:25 AM) Temperature Oral [96.4-99.1 DegF] 129/85 mmHg (05/31/16 11:42 AM) 149/84 mmHg *HI* (05/31/16 7:42 AM) 137/87 mmHg (05/31/16 4:25 AM) Blood Pressure [90-140/60-90 mmHg] 18 BRMIN (05/31/16 11:42 AM) 18 BRMIN (05/31/16 7:42 AM) 18 BRMIN (05/31/16 4:25 AM) Respiratory Rate [14-20 BRMIN] 81 bpm (05/31/16 11:42 AM) 74 bpm (05/31/16 7:42 AM) 72 bpm (05/31/16 4:25 AM) Peripheral Pulse Rate [60-100 bpm] 80.653 kg (05/16/16 1:47 PM) Weight 33.6 m2 (05/16/16 1:47 PM) Body Mass Index Problem List Condition Effective [...] Active iodine topical Active morphine Active Medications acetaminophen 650 mg, 2 tab, Route: PO, Drug form: TAB, Q4H, Dosing Weight 80.653, kg, PRN Celestino n 1-3/Temp > 100.4 F, Start date: 05/29/16 9:47:00 [employer], Duration: 30 day, Stop date: 06/28/16 9:46:00 [employer] Notes: Do not exceed 4 gm/day. (Same as: Tylenol) Start Date: 05/29/16 Stop Date: 05/31/16 Status: Discontinued acetaminophen-hydrocodone 325 mg-10 mg oral tablet 1 tab, PO, Q6H, PRN Pain, # 20 tab, 0 Refill(s) Start Date: 05/16/16 Stop Date: 05/21/16 Status: Ordered Al hydroxide/Mg hydroxide/simethicone 200 mg-200 mg-20 mg/5 mL oral suspension 30 ml, Route: PO, Drug Form: SUSP, Dosing Weight 80.653, kg, Q4H, PRN Indigestio n, Start date: 05/29/16 9:47:00 [employer], Duration: 30 day, Stop date: 06/28/16 9:46: 00 [employer] Notes: (aluminum hydroxide-magnesium hyd-simethicone [id number]/5ml 30 ml ud S US) Start Date: 05/29/16 Stop Date: 05/31/16 Status: Discontinued aspirin 81 mg tablet, chewable 81 mg=1 tab, PO, Daily, tab, 0 Refill(s) Start Date: 05/16/16 Status: Ordered atorvastatin 20 mg, 2 tab, Route: PO, Drug form: TAB, Bedtime, Dosing Weight 80.653, kg, Star t date: 05/29/16 21:00:00 [employer], Duration: 30 day, Stop date: 06/27/16 21:00:00 CS T Notes: (Same As: Lipitor) Start Date: 05/29/16 Stop Date: 05/31/16 Status: Discontinued ceFAZolin (ANES) Route: IV, Drug form: INJ, ONCE, Stop date: 05/29/16 8:36:00 [employer] Start Date: 05/29/16 Stop Date: 05/29/16 Status: Completed ceFAZolin (SCIP) 1 gm, 100 mL, Route: IVPB, Drug form: INJ, Q8H, Dosing Weight 80.653, kg, Start date: 05/29/16 16:00:00 [employer], Duration: 1 doses or times, Stop date: 05/29/16 16: 00:00 [employer] Start Date: 05/29/16 Stop Date: 05/29/16 Status: Completed docusate sodium 100 mg oral capsule 100 mg, 1 cap, Route: PO, Drug form: CAP, BID, Dosing Weight 80.653, kg, Start d ate: 05/29/16 17:00:00 [employer], Duration: 30 day, Stop date: 06/28/16 9:00:00 [employer] Notes: (Same as: Colace) (Do Not Crush) Start Date: 05/29/16 Stop Date: 05/31/16 Status: Discontinued Dulcolax Laxative 5 mg, 1 tab, Route: PO, Drug form: ECTAB, Q24H, Dosing Weight 80.653, kg, PRN Co nstipation, Start date: 05/29/16 9:47:00 [employer], Duration: 30 day, Stop date: 06/28 9:46:00 [employer] Notes: (Same As: Dulcolax, Correctol) (Do Not Crush) "Do Not Crush" Start Date: 05/29/16 Stop Date: 05/31/16 Status: Discontinued famotidine (ANES) Route: IV, Drug form: INJ, ONCE, Stop date: 05/29/16 8:41:00 [employer] Start Date: 05/29/16 Stop Date: 05/29/16 Status: Completed fentaNYL (ANES) Route: IV, Drug form: INJ, ONCE, Stop date: 05/29/16 8:51:00 [employer] Start Date: 05/29/16 Stop Date: 05/29/16 Status: Completed furosemide 20 mg oral tablet 20 mg=1 tab, PO, Daily, # 30 tab, 0 Refill(s) Start Date: 05/16/16 Status: Ordered furosemide 20 mg oral tablet 20 mg, 1 tab, Route: PO, Drug form: TAB, Daily, Dosing Weight 80.653, kg, Start date: 05/30/16 9:00:00 [employer], Duration: 30 day, Stop date: 06/28/16 9:00:00 [employer] Notes: (Same as: Lasix) May cause GI upset. Give with food or milk. Start Date: 05/30/16 Stop Date: 05/31/16 Status: Discontinued hydromorphone 0.5 mg, 0.5 mL, Route: IVP, Drug form: INJ, Q3H, Dosing Weight 80.653, kg, PRN P ain Score 7-10, Start date: 05/29/16 9:47:00 [employer], Duration: 30 day, Stop date: 0 06/28/16 9:46:00 [employer] Start Date: 05/29/16 Stop Date: 05/31/16 Status: Discontinued hydromorphone (ANES) Route: IV, Drug form: INJ, ONCE, Stop date: 05/29/16 9:41:00 [employer] Start Date: 05/29/16 Stop Date: 05/29/16 Status: Completed K-Dur 20 40 mEq, 2 tab, Route: PO, Drug form: ERTAB, ONCE, Dosing Weight 80.653, kg, Star t date: 05/29/16 15:00:00 [employer], Stop date: 05/29/16 15:00:00 [employer] Notes: (Same as: K-Dur 20)"Do Not Crush" With food and full glass of water Start Date: 05/29/16 Stop Date: 05/29/16 Status: Completed ketOROLAC 15 mg/mL injectable solution 15 mg, 1 mL, Route: IVP, Drug form: INJ, Daily, Dosing Weight 80.653, kg, PRN Pa in Score 6-10, Start date: 05/30/16 7:43:00 [employer], Duration: 4 day, Stop date: 04/09 7:42:00 [employer] Start Date: 05/30/16 Stop Date: 05/31/16 Status: Discontinued Lactated Ringers 1,000 mL 1,000 mL, Rate: 25 ml/hr, Infuse over: 40 hr, Route: IV, Dosing Weight 80.653 kg , Total Volume: 1,000, Start date: 05/29/16 6:24:00 [employer], Duration: 1 day, Stop d ate: 05/30/16 6:23:00 [employer] Start Date: 05/29/16 Stop Date: 05/29/16 Status: Discontinued Lactated Ringers 1,000 mL 1,000 mL, Rate: 100 ml/hr, Infuse over: 10 hr, Route: IV, Dosing Weight 80.653 k g, Total Volume: 1,000, Start date: 05/29/16 9:47:00 [employer]PING, Duration: 30 day, Stop date: 06/28/16 9:46:00 [employer] Start Date: 05/29/16 Stop Date: 05/31/16 Status: Discontinued lidocaine (ANES) Route: IV, Drug form: INJ, ONCE, Stop date: 05/29/16 8:36:00 [employer] Start Date: 05/29/16 Stop Date: 05/29/16 Status: Completed LR 1000 mL INJ (ANES) Route: IV, Total Volume: 1,000, Start date: 05/29/16 7:41:00 [employer], Stop date: 11/07 8:41:00 [employer] Start Date: 05/29/16 Stop Date: 05/29/16 Status: Completed midazolam (ANES) Route: IV, Drug form: SOLN, ONCE, Stop date: 05/29/16 8:31:00 [employer] Start Date: 05/29/16 Stop Date: 05/29/16 Status: Completed [place] 10/325 oral tablet 1 tab, Route: PO, Drug Form: TAB, Dosing Weight 80.653, kg, Q4H, PRN Pain Score 6-10, Start date: 05/30/16 8:18:00 [employer], Duration: 30 day, Stop date: 06/29/16 8: 17:00 [employer] Notes: Do not exceed 4gm/day of acetaminophen. (Same as: [place] 325/10) Start Date: 05/30/16 Stop Date: 05/31/16 Status: Discontinued [place] 7.5/325 oral tablet 1 tab, Route: PO, Drug Form: TAB, Dosing Weight 80.653, kg, Q4H, PRN Pain Score 4-6, Start date: 05/29/16 9:47:00 [employer]PING, Duration: 30 day, Stop date: 06/28/16 9:4 6:00 [employer] Notes: Same as [place] 325-7.5mg Do not exceed 4gm/day of acetaminophen. Start Date: 05/29/16 Stop Date: 05/30/16 Status: Discontinued ondansetron 4 mg, 2 mL, Route: IVP, Drug form: INJ, Q8H, Dosing Weight 80.653, kg, PRN Nause a & Vomiting, Start date: 05/29/16 9:47:00 [employer]PING, Duration: 30 day, Stop date: 06/28/16 9:46:00 [employer] Notes: (Same as: Lorene) MEDICATION WASTE Product Size: 4 mgProduct Was delvin: ___ mg Start Date: 05/29/16 Stop Date: 05/31/16 Status: Discontinued ondansetron (ANES) Route: IV, Drug form: INJ, ONCE, Stop date: 05/29/16 8:31:00 [employer] Start Date: 05/29/16 Stop Date: 05/29/16 Status: Completed pneumococcal 13-valent vaccine 0.5 mL, Route: IM, Drug Form: INJ, Daily, Start date: 05/30/16 9:00:00 [employer], Dura tion: 1 doses or times, Stop date: 05/30/16 9:00:00 [employer] Notes: Lightly roll vial (DO NOT SHAKE) before administration. (Same as: Prevna r 13) Start Date: 05/30/16 Stop Date: 05/30/16 Status: Completed Prilosec 40 mg, PO, Daily, 0 Refill(s) Start Date: 05/16/16 Status: Ordered Prilosec 40 mg, Route: PO, Daily, Dosing Weight 80.653, kg, Start date: 05/30/16 9:00:00 [employer], Duration: 30 day, Stop date: 06/28/16 9:00:00 [employer]OR [employer] Start Date: 05/30/16 Stop Date: 05/29/16 Status: Deleted propofol (ANES) Route: IV, Drug form: INJ, ONCE, Stop date: 05/29/16 8:36:00 [employer] Start Date: 05/29/16 Stop Date: 05/29/16 Status: Completed Protonix 40 mg, 1 tab, Route: PO, Drug form: ECTAB, Before Dinner, Start date: 05/29/16 1 6:30:00 [employer], Duration: 30 day, Stop date: 06/27/16 16:30:00 [employer] Notes: Tablet should not be chewed or crushed.(Same as: Protonix) Start Date: 05/29/16 Stop Date: 05/31/16 Status: Discontinued rivaroxaban 10 mg, 1 tab, Route: PO, Drug form: TAB, Q24H, Dosing Weight 80.653, kg, Start d ate: 05/29/16 15:45:00 SU[employer]PING, Duration: 30 day, Stop date: 06/27/16 15:45:00 [employer] Notes: (Same as: Xarelto)Do Not Crush Start Date: 05/29/16 Stop Date: 05/31/16 Status: Discontinued rivaroxaban 10 mg oral tablet 10 mg=1 tab, PO, Q24H, # 10 tab, 0 Refill(s) Start Date: 05/31/16 Status: Ordered tramadol 50 mg, 1 tab, Route: PO, Drug form: TAB, Q4H, Dosing Weight 80.653, kg, PRN Pain Score 1-3, Start date: 05/29/16 9:50:00 [employer]PING, Duration: 30 day, Stop date: 06/28 9:49:00 [employer]PERVIS[employer], .. Notes: Not to exceed 400mg/day. (Same As: Ultram) Start Date: 05/29/16 Stop Date: 05/31/16 Status: Discontinued tranexamic acid (ANES) Route: IV, Drug form: INJ, ONCE, Stop date: 05/29/16 9:26:00 [employer]PING Start Date: 05/29/16 Stop Date: 05/29/16 Status: Completed Xarelto 10 mg, Route: PO, Daily, Dosing Weight 80.653, kg, Start date: 05/30/16 9:00:00 [employer]VISOR [employer]PING, Duration: 30 day, Stop date: 06/28/16 9:00:00 SUPERVISOR [employer]PING Start Date: 05/30/16 Stop Date: 05/29/16 Status: Deleted Results BLOOD BANK RESULTS 1 2 3 Most recent to oldest [Reference Range]: A POS *Unknown* (05/29/16 6:03 AM) A POS *Unknown* (05/16/16 1:53 PM) ABO/Rh Negative (05/29/16 6:03 AM) Negative (05/16/16 1:53 PM) Antibody Scrn Product available 1 (05/16/16 4:45 PM) RBC product 1Result Comment: 05/29/2016 07:19 [id number] called to kassandra 05/29/2016 07:19 tb ELECTROLYTES 1 2 3 Most recent to oldest [Reference Range]: 143 mEq/L (05/29/16 6:03 AM) Sodium Lvl [135-145 mEq/L] 3.7 mEq/L (05/31/16 9:37 AM) 3.0 mEq/L 1 *CRIT* (05/29/16 6:03 AM) Potassium Lvl [3.5-5.1 mEq/L] 107 mEq/L (05/29/16 6:03 AM) Chloride Lvl [95-109 mEq/L] 28 mEq/L (05/29/16 6:03 AM) CO2 [24-32 mEq/L] 11.0 mEq/L (05/29/16 6:03 AM) AGAP [10.0-20.0 mEq/L] 1Result Comment: Critical Result(s) called to eliud antoine at 05/29/2016 06:47 by tl. Read back OK. CHEM PANEL 1 2 3 Most recent to oldest [Reference Range]: 0.61 mg/dL (05/29/16 6:03 AM) Creatinine Lvl [0.50-1.40 mg/dL] 95 mL/min/1.73m2 1 *NA* (05/29/16 6:03 AM) eGFR 10 mg/dL (05/29/16 6:03 AM) BUN [7-22 mg/dL] 16 (05/29/16 6:03 AM) B/C Ratio [6-25] 81 mg/dL (05/29/16 6:03 AM) Glucose Lvl [70-99 mg/dL] 5.7 g/dL *LOW* (05/29/16 6:03 AM) Total Protein [6.4-8.4 g/dL] 3.0 g/dL *LOW* (05/29/16 6:03 AM) Albumin Lvl [3.5-5.0 g/dL] 2.7 g/dL (05/29/16 6:03 AM) Globulin [2.7-4.2 g/dL] 1.1 (05/29/16 6:03 AM) A/G Ratio [0.7-1.6] 8.1 mg/dL *LOW* (05/29/16 6:03 AM) Calcium Lvl [8.5-10.5 mg/dL] 17 unit/L (05/29/16 6:03 AM) ALT [0-65 unit/L] 9 unit/L (05/29/16 6:03 AM) AST [0-37 unit/L] 72 unit/L (05/29/16 6:03 AM) Alk Phos [39-136 unit/L] 0.6 mg/dL (05/29/16 6:03 AM) Bili Total [0.2-1.3 mg/dL] 1Result Comment: The eGFR is calculated using [...] be mul tiplied by the estimated BMI. URINE AND STOOL 1 2 3 Most recent to oldest [Reference Range]: Clear (05/16/16 1:53 PM) UA Turbidity [Clear] Ltyellow *NA* (05/16/16 1:53 PM) UA Color 5.0 (05/16/16 1:53 PM) UA pH [5.0-8.0] 1.010 (05/16/16 1:53 PM) UA Spec Grav [<=1.030] Negative mg/dL *NA* (05/16/16 1:53 PM) UA Glucose [Negative mg/dL] Negative (05/16/16 1:53 PM) UA Blood [Negative] Negative mg/dL *NA* (05/16/16 1:53 PM) UA Ketones [Negative mg/dL] Negative mg/dL (05/16/16 1:53 PM) UA Protein [Negative mg/dL] <=1.0 mg/dL *NA* (05/16/16 1:53 PM) UA Urobilinogen [0.1-1.0 mg/dL] Negative *NA* (05/16/16 1:53 PM) UA Bili [Negative] Negative (05/16/16 1:53 PM) UA Leuk Est [Negative] Negative (05/16/16 1:53 PM) UA Nitrite [Negative] <1 /HPF (05/16/16 1:53 PM) UA WBC [0-5 /HPF] 1 /HPF (05/16/16 1:53 PM) UA RBC [0-2 /HPF] Occasional /LPF *NA* (05/16/16 1:53 PM) UA Sq Epi [Few /LPF] 1 /LPF (05/16/16 1:53 PM) UA Hyal Cast [0-2 /LPF] Few /LPF *NA* (05/16/16 1:53 PM) UA Mucus [None Seen /LPF] IMMUNOLOGY 1 2 3 Most recent to oldest [Reference Range]: Negative *NA* (05/16/16 1:53 PM) HIV 1/2 Ab [Negative] HEMATOLOGY 1 2 3 Most recent to oldest [Reference Range]: 3.8 K/CMM (05/29/16 6:03 AM) WBC [3.7-10.4 K/CMM] 3.32 M/CMM *LOW* (05/29/16 6:03 AM) RBC [4.20-5.40 M/CMM] 9.8 g/dL *LOW* (05/31/16 3:59 AM) 9.2 g/dL *LOW* (05/30/16 4:13 AM) 11.2 g/dL *LOW* (05/29/16 6:03 AM) Hgb [12.0-16.0 g/dL] 28.9 % *LOW* (05/31/16 3:59 AM) 28.7 % *LOW* (05/30/16 4:13 AM) 32.4 % *LOW* (05/29/16 6:03 AM) Hct [36.0-48.0 %] 97.6 fL (05/29/16 6:03 AM) MCV [80.0-98.0 fL] 33.7 pg *HI* (05/29/16 6:03 AM) MCH [27.0-31.0 pg] 34.5 g/dL (05/29/16 6:03 AM) MCHC [32.0-36.0 g/dL] 13.4 % (05/29/16 6:03 AM) RDW [11.5-14.5 %] 162 K/CMM (05/29/16 6:03 AM) Platelet [133-450 K/CMM] 7.3 fL *LOW* (05/29/16 6:03 AM) MPV [7.4-10.4 fL] 54.4 % (05/29/16 6:03 AM) Segs [45.0-75.0 %] 32.7 % (05/29/16 6:03 AM) Lymphocytes [20.0-40.0 %] 9.4 % (05/29/16 6:03 AM) Monocytes [2.0-12.0 %] 2.2 % (05/29/16 6:03 AM) Eosinophils [0.0-4.0 %] 1.3 % *HI* (05/29/16 6:03 AM) Basophils [0.0-1.0 %] 2.1 K/CMM (05/29/16 6:03 AM) Segs-Bands # [1.5-8.1 K/CMM] 1.2 K/CMM (05/29/16 6:03 AM) Lymphocytes # [1.0-5.5 K/CMM] 0.4 K/CMM (05/29/16 6:03 AM) Monocytes # [0.0-0.8 K/CMM] 0.1 K/CMM (05/29/16 6:03 AM) Eosinophils # [0.0-0.5 K/CMM] 14.0 seconds (05/16/16 1:53 PM) PT [12.0-14.7 seconds] 1.06 (05/16/16 1:53 PM) INR [0.85-1.17] 26.7 seconds (05/16/16 1:53 PM) PTT [22.9-35.8 seconds] Immunizations Given and Recorded Vaccine Date Status Refusal Reason pneumococcal 13-valent vaccine 05/30/16 Given Procedures Procedure Date Related Diagnosis Body Site Aortofemoral angiogram Upper GI endoscopy Social History Social History Type Response Smoking Status Never smoker; Exposure to Tobacco Smoke None; Cigarette Smoking Last 365 Days No; Reg Smoking Cessation Counseling No Assessment and Plan Extracted from: Title: Clinical Document Author: Tatianna Hinton MD Date: 05/31/16 Medicine Progress Daily Chief Complaint: HTN, chronic pain Subjective & Interval history: Patient seen and examined. feels better and pain is controlled. No new complaints, Objective: Vital Signs (last 24 hrs) Last Charted Temp Oral98 DegF (MAY 31:) Heart Rate [id number] bpm (MAY 31:) Resp Rate 18 BRMIN (MAY 31) SBPH 149mmHg (MAY 31) DBP84 mmHg (MAY 31:) SpO2L 93% (MAY 31) Medications and labs reviewed as below. PHYSICAL EXAM: GENERAL: AAO NAD HEENT: NCAT, perrl, eomi NECK: Supple, midline trachea LUNGS: CTAB, No rales, rhonchi or wheezes. CARDIOVASCULAR: S1, S2 normal. No M/G/R. ABDOMEN: Soft, ND, NT. BS + EXTREMITIES: No C/C , or Edema SKIN: No rashes. MUSCULOSKELETAL: Moving all extremities. Neuro: No new motor or sensory deficits IMPRESSION: 1. A 65-year-old female with history of osteoarthritis, status post right knee total arthroplasty. 2. Hypertension. 3. Gastroesophageal reflux disease. 4. Chronic pain syndrome. PLAN & TREATMENT DC planning for home today. Continue home meds as before. Follow up with Dr. El. Pain controlled Continue home meds fall precautions BP controlled. Continue current care. For details see orders. Plan of care discussed with the patient. Disposition: continue present care Input/Output RecordInOutBal 05/724hr Tot 0 0 0 05/624hr Tot 5 0 5 Scheduled Meds (5):atorvastatin, docusate (docusate sodium 100 mg oral capsule), furosemide (furosemide 20 mg oral tablet), pantoprazole (Protonix), rivaroxaban Unscheduled Meds: None PRN Meds (8):Al hydroxide/Mg hydroxide/simethicone (Al hydroxide/Mg hydroxide/simethicone 200 mg-200 mg-20 mg/5 mL oral suspension), acetaminophen- hydrocodone ([place] 10/325 oral tablet), acetaminophen, bisacodyl (Dulcolax Laxative), hydromorphone, ketOROLAC (ketOROLAC 15 mg/mL injectable solution), ondansetron, tramadol One Time Meds: None Continuous Infusions (1):Lactated Ringers 1,000 mL Labs (Last four charted values) WBC 3.8(MAY 29) Hgb L 9.8(MAY 31)L 9.2(MAY 30)L 11.2(MAY 29) Hct L 28.9(MAY 31)L 28.7(MAY 30)L 32.4(MAY 29) Plt 162(MAY 29) Na 143(MAY 29) K 3.7(MAY 31)C 3.0(MAY 29) CO2 28(MAY 29) Cl 107(MAY 29) Cr 0.61(MAY 29) BUN 10(MAY 29) Glucose Random 81(MAY 29) Ca L 8.1(MAY 29) PT 14.0(MAY 16) INR 1.06(MAY 16) PTT 26.7(MAY 16) Extracted from: Title: Pain Management Author: Zeeshan El MD Date: 05/30/16 Patient well known to my clinic who has been admitted for total knee replacement. She notes her pain is worsened this AM since her nerve block has worn off. We will increase her [place] from 7.5mg to 10mg Q4H PRN pain. Also continue PRN IV diluadiid and Toradol. Will follow up tomorrow to give a script for her to go home with.
--- OUTSIDE RECORDS SUMMARY | 2018-04-19 17:41 | XMS REPORT | Summary of Care ---
Author Author [facility] [place] [place] Address Unknown Phone Unavailable Encounter [facility](FIN) [id number] Date(s): 09/18/16 - 10/17/16 [facility] Discharge Disposition: Home or Self Care Attending [...]
--- OUTSIDE RECORDS SUMMARY | 2018-04-19 17:41 | XMS REPORT | Summary of Care ---
Author Author [facility] Address Unknown Phone Unavailable Encounter [facility](FIN) [id number] Date(s): 08/10/16 - 09/08/16 [facility] Discharge Disposition: Home or Self Care Attending [...]
--- OUTSIDE RECORDS SUMMARY | 2018-04-19 17:41 | XMS REPORT | Summary of Care ---
Author Author [facility] Organization [facility] Address Unknown Phone Unavailable Encounter TANVIR [place](DMITRIY) [id number] Date(s): 09/11/16 - 09/11/16 [facility] [address] [place] [address]- [phone] Discharge Disposition: Home or Self Care Attending Physician: Ruba Lopez MD Referring Physician: Tashi Hurtado MD Vital Signs Most recent to 1 oldest [Reference Range]: Height 157.48 cm (09/08/16 2:30 PM) Blood Pressure 99/66 mmHg [90-140/60-90 mmHg] (09/11/16 7:15 AM) Respiratory Rate 18 BRMIN [14-20 BRMIN] (09/11/16 7:15 AM) Weight 73.182 kg (09/08/16 2:30 PM) Body Mass Index 29.51 m2 (09/08/16 2:30 PM) Problem List Condition Effective Dates Status [...] Active iodine topical Active morphine Active Medications Valium 0 Refill(s) Start Date: 09/08/16 Status: Ordered Results No data available for [...]
--- OUTSIDE RECORDS SUMMARY | 2018-04-19 17:42 | XMS REPORT ---
Author Author Zeeshan El Organization [employer] Address Unknown Phone Unavailable Care Team Providers Care [employer] Teacher Name Role Phone Zeeshan El CP Unavailable Allergies No Known Allergies Problems Problem Type Condition Code Onset Dates Condition Status Problem Chronic pain syndrome G89.4 Active Problem Morbid (severe) obesity due to excess calories E66.01 Active Problem correction (current) use 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 Z79.891 Active Assessment Primary osteoarthritis of left knee M17.12 Active Problem Nutritional deficiency E63.9 Active Problem [...] Instructions Start Date End Date Status Dosage Ketorolac Tromethamine [facility] [id number] 10 MG Orally Twice a day January 22, 2017 Active 1 tablet with food or milk as needed Results No Known Results Summary Purpose [employer] Submission
--- OUTSIDE RECORDS SUMMARY | 2018-04-19 17:42 | XMS REPORT ---
Author Author Tatianna Hinton Organization [employer] Address Unknown Phone Unavailable Care Team Providers Care Pathology Laboratory Aides Teacher Name Role Phone Tatianna Hinton CP Unavailable Allergies, Adverse Reactions, Alerts Substance Reaction Event Type Morphine Sulfate Info Not Available Drug Allergy Iodine Info Not Available Drug Allergy Benadryl Info Not Available Drug Allergy Problems Problem Type Condition Code Onset Dates Condition Status Problem S/P bariatric surgery Z98.84 Active Problem Primary osteoarthritis, unspecified site M19.91 Active Problem Arthralgia of knee, right M25.561 Active Problem Major depressive disorder, single episode, unspecified F32.9 Active Problem Anxiety disorder, unspecified F41.9 Active Problem Intractable cyclical vomiting with nausea G43.A1 Active Problem Nausea R11.0 Active Problem Other dietary vitamin B12 deficiency anemia D51.3 Active Problem Primary insomnia F51.01 Active Problem Fatigue, unspecified type R53.83 Active Assessment Primary insomnia F51.01 Active Assessment Other dietary vitamin B12 deficiency anemia D51.3 Active Problem Anxiety F41.9 Active Assessment Anxiety disorder, unspecified F41.9 Active Problem Essential hypertension I10 Active Medications Medication Code System Code Instructions Start Date End Date Status Dosage Citalopram Hydrobromide [facility] 99576148694 40 mg Orally Once a day Active 1 tablet Alprazolam [facility] 03284474706 0.25 MG Orally bid prn May 04, 2017 Active 0.5 tab Celexa [facility] 94134293664 20 MG Orally Once a day Active 1 tablet Calcium [facility] [address]-16 Active not defined Medical Compression Stockings [facility] 65560171032 as directed daily Mar 22, 2016 Active as directed Quinapril HCl ND 18783883401 20 MG Orally Once a day as needed Active 1 tablet Hydrocodone-Acetaminophen [facility] 40580728973 10-325 MG Orally As needed Active 1 tablet Vital Signs Date/Time: Aug 22, 2017 BMI 26.88 Index Weight 147 lbs Height 62 in Temperature 97.1 F Blood Pressure Diastolic 66 mm Hg Blood Pressure Systolic 111 mm Hg Results No Known Results Summary Purpose [employer] Submission
--- OUTSIDE RECORDS SUMMARY | 2018-04-19 17:42 | XMS REPORT ---
Author Author Zeeshan El Organization eClinicalWorks Address Unknown Phone Unavailable Care Team Providers Care Manager Latin Name Role Phone Zeeshan El CP Unavailable Allergies No Known Allergies Problems Problem Type Condition Code Onset Dates Condition Status Problem Chronic pain syndrome G89.4 Active Problem Morbid (severe) obesity due to excess calories E66.01 Active Problem prison (current) use 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 Z79.891 Active [...] Assessment Radiculopathy, lumbar region M54.16 Active Assessment Pain in joint of right knee M25.561 Active Assessment Spasm of muscle M62.838 Active Assessment Nutritional deficiency E63.9 Active Assessment 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 Z79.891 Active Assessment Primary osteoarthritis of right knee M17.11 Active Assessment Pain in joint of left knee M25.562 Active Assessment Primary osteoarthritis of left knee M17.12 Active Assessment Morbid (severe) obesity due to excess calories E66.01 Active Assessment Chronic pain syndrome G89.4 Active Medications Medication Code System Code Instructions Start Date End Date Status Dosage Medrol Dose [facility] [place] [id number] 4mg Orally once a day October 22, 2017 2017 Active as directed Results No Known Results Summary Purpose eClinicalWorks Submission
--- OUTSIDE RECORDS SUMMARY | 2018-04-19 17:42 | XMS REPORT ---
Author Author Zeeshan El Organization [employer] Address Unknown Phone Unavailable Care Team Providers Care Drupal Developer Name Role Phone Zeeshan El CP Unavailable Allergies No Known Allergies Problems Problem Type Condition Code Onset Dates Condition Status Problem Morbid (severe) obesity due to excess calories E66.01 Active Problem Primary osteoarthritis of right knee M17.11 Active Problem halfway (current) use of opiate [...]
--- OUTSIDE RECORDS SUMMARY | 2018-04-19 17:42 | XMS REPORT ---
Author Author Tatianna Hinton Organization [employer] Address Unknown Phone Unavailable Care Team Providers Care History Professor Name Role Phone Tatianna Hinton CP Unavailable [...] Problem Fatigue, unspecified type R53.83 Active Assessment Essential hypertension I10 Active Assessment Anxiety F41.9 Active Assessment Cardiac murmur R01.1 Active Problem Anxiety F41.9 Active Assessment Other dietary vitamin B12 deficiency anemia D51.3 Active Problem Essential hypertension I10 Active Medications Medication Code System Code Instructions Start Date End Date Status Dosage Quinapril HCl [facility] 36499596538 20 MG Orally Once a day as needed Active 1 tablet Medical Compression Stockings [facility] 57239094029 as directed daily Mar 22, 2016 Active as directed Citalopram Hydrobromide [facility] 71838460673 40 mg Orally Once a day Active 1 tablet Alprazolam [facility] 68228508528 0.25 MG Orally bid prn May 04, 2017 Active 0.5 tab Calcium [facility] [address]-13 Active not defined Hydrocodone-Acetaminophen ND 91242498673 10-325 MG Orally As needed Active 1 tablet Vital Signs Date/Time: Aug 01, 2017 BMI 25.42 Index Weight 139 lbs Height 62 in Temperature 98.9 F Blood Pressure Diastolic 70 mm Hg Blood Pressure Systolic 113 mm Hg Results No Known Results Summary Purpose eClinicalWorks Submission
--- OUTSIDE RECORDS SUMMARY | 2018-04-19 17:42 | XMS REPORT ---
Author Author Zeeshan El Organization [employer] Address Unknown Phone Unavailable Care Team Providers Care Air Route Traffic Controller Name Role Phone Zeeshan El CP Unavailable Allergies No Known Allergies Problems Problem Type Condition Code Onset Dates Condition Status Problem Chronic pain syndrome G89.4 Active Problem Morbid (severe) obesity due to excess calories E66.01 Active Problem [facility] (current) use 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 Z79.891 Active [...]
--- OUTSIDE RECORDS SUMMARY | 2018-04-19 17:42 | XMS REPORT ---
Author Author Zeeshan El Organization [employer] Address Unknown Phone Unavailable Care Team Providers Care Freight Car Loader Name Role Phone Zeeshan El CP Unavailable Allergies No Known Allergies Problems Problem Type Condition Code Onset Dates Condition Status Problem Chronic pain syndrome G89.4 Active Problem Morbid (severe) obesity due to excess calories E66.01 Active Problem [facility] (current) use 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 Z79.891 [...]
--- OUTSIDE RECORDS SUMMARY | 2018-04-19 17:42 | XMS REPORT ---
Author Author Tatianna Hinton Organization [employer] Address Unknown Phone Unavailable Care Team Providers Care Athletic Training Internship Name Role Phone Tatianna Hinton CP Unavailable Allergies No Known Allergies Problems Problem Type Condition Code Onset Dates Condition Status Problem Nausea R11.0 Active Problem Fatigue, unspecified type R53.83 Active Problem Other dietary vitamin B12 deficiency anemia D51.3 Active Problem Primary osteoarthritis, right hand M19.041 Active Problem Primary osteoarthritis of left 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 Active Problem Primary osteoarthritis involving multiple joints M15.0 Active Problem Anxiety disorder, unspecified F41.9 Active Problem Primary insomnia F51.01 Active Problem Intractable cyclical vomiting with nausea G43.A1 Active Problem Major depressive disorder, single episode, unspecified F32.9 Active Problem Essential hypertension I10 Active Problem S/P bariatric surgery Z98.84 Active Problem Arthralgia of knee, right M25.561 Active Problem Anxiety F41.9 Active Problem Primary osteoarthritis, unspecified site M19.91 Active Medications No Known Medications Results No Known Results Summary Purpose eClinicalWorks Submission
--- OUTSIDE RECORDS SUMMARY | 2018-04-19 17:42 | XMS REPORT ---
Author Author Zeeshan El Organization [employer] Address Unknown Phone Unavailable Care Team Providers Care Winchman/Crane Operator Name Role Phone Zeeshan El CP [...]
--- OUTSIDE RECORDS SUMMARY | 2018-04-19 17:42 | XMS REPORT ---
Author Author Tatianna Hinton Organization [employer] Address Unknown Phone Unavailable Care Team Providers Care Manager Epic Name Role Phone Tatianna Hinton CP Unavailable Allergies, Adverse Reactions, Alerts Substance Reaction Event Type Morphine Sulfate Info Not Available Drug Allergy Iodine Info Not Available Drug Allergy Benadryl Info Not Available Drug Allergy Problems Problem Type Condition Code Onset Dates Condition Status Problem Primary osteoarthritis, unspecified site M19.91 Active Problem Other dietary vitamin B12 deficiency anemia D51.3 Active Problem Nausea R11.0 Active Problem Primary osteoarthritis of left 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 Active Problem Intractable cyclical vomiting with nausea G43.A1 Active Problem Primary osteoarthritis, right hand M19.041 Active Problem Primary insomnia F51.01 Active Problem Fatigue, unspecified type R53.83 Active Problem Major depressive disorder, single episode, unspecified F32.9 Active Problem Anxiety disorder, unspecified F41.9 Active Assessment Primary osteoarthritis of left 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 Active Assessment Primary osteoarthritis, right hand M19.041 Active Problem Anxiety F41.9 Active Problem Essential hypertension I10 Active Assessment Other dietary vitamin B12 deficiency anemia D51.3 Active Problem S/P bariatric surgery Z98.84 Active Assessment Anxiety F41.9 Active Problem Arthralgia of knee, right M25.561 Active Medications Medication Code System Code Instructions Start Date End Date Status Dosage Quinapril HCl [facility] 04439542996 20 MG Orally Once a day as needed Active 1 tablet Citalopram Hydrobromide ND 46932335864 40 mg Orally Once a day Active 1 tablet Calcium [facility] [address]-86 Active not defined Medical Compression Stockings ND 52471575388 as directed daily Mar 22, 2016 Active as directed Celexa ND 33313929754 20 MG Orally Once a day Active 1 tablet Diclofenac Sodium ND 49025999825 1 % Transdermal bid prn September 28, 2017 Mar 27, 2018 Active as directed Alprazolam ND 44080104851 0.25 MG Orally bid prn May 04, 2017 Active 0.5 tab Hydrocodone-Acetaminophen ND 14141441330 10-325 MG Orally As needed Active 1 tablet Vital Signs Date/Time: September 28, 2017 BMI 27.98 Index Weight 153 lbs Height 62 in Temperature 97.5 F Blood Pressure Diastolic 64 mm Hg Blood Pressure Systolic 112 mm Hg Results No Known Results Summary Purpose eClinicalWorks Submission
--- OUTSIDE RECORDS SUMMARY | 2018-04-19 17:42 | XMS REPORT ---
Author Author Zeeshan El Organization e[employer] Address Unknown Phone Unavailable Care Team Providers Care Comptometrist Name Role Phone Zeeshan El Unavailable Allergies, Adverse Reactions, Alerts Substance Reaction Event Type Morphine Sulfate stomach upset Drug Allergy Flexeril drowsy Drug Allergy Amitriptyline HCl nausea Drug Allergy IODINE rash Non Drug Allergy Problems Problem Type Condition Code Onset Dates Condition Status Problem Morbid (severe) obesity due to excess calories E66.01 Active Problem Primary osteoarthritis of right knee M17.11 Active Problem residential (current) use 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 Z79.891 Active Problem Nutritional deficiency E63.9 Active Problem Radiculopathy, lumbar region M54.16 Active Problem Spasm of muscle M62.838 Active Problem Chronic pain syndrome G89.4 Active Problem Primary osteoarthritis of left knee M17.12 Active Problem Pain in joint of left knee M25.562 Active Problem Pain in joint of right knee M25.561 Active Assessment Pain in joint of left knee M25.562 Active Assessment residential (current) use 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 Z79.891 Active Assessment Primary osteoarthritis of left knee M17.12 Active Assessment Chronic pain syndrome G89.4 Active Medications Medication Code System Code Instructions Start Date End Date Status Dosage Ketorolac Tromethamine [facility] [address]-29 10 MG Orally Twice a day January 22, 2017 Jan 27, 2017 Active 1 tablet with food or milk as needed [place] [facility] [address]-05 10-325 MG Orally QID Active 1 tablet as needed Diclofenac Sodium [facility] [address]-46 1 % Transdermal Four times a day Active 2g Metoprolol & Diet Manage Prod NDC 0 50 MG Orally Active as directed Omeprazole [facility] [address]-22 40 MG Orally Once a day Active 1 capsule Tramadol HCl [facility] [address]-94 50 MG Orally every 6 hrs PRN January 22, 2017 Feb 21, 2017 Active 1 tablet as needed Robaxin-750 [facility] [address]-51 750 MG Orally every 8 hrs PRN December 29, 2016 Jan 28, 2017 Active 1 tablet Quinapril HCl [facility] [address]-55 40 MG Orally Once a day Active 1tab TID PRN #120 NRF Vitamin B-12 [facility] [address]19 Orally once a month Active not defined Vital Signs Date/Time: January 22, 2017 BMI 28.23 Index Weight 149.4 lbs Height 61 in Temperature 96.8 F Cardiac Monitoring Heart Rate 68 /min Blood Pressure Diastolic 60 mm Hg Blood Pressure Systolic 104 mm Hg Results No Known Results Summary Purpose eClinicalWorks Submission
--- OUTSIDE RECORDS SUMMARY | 2018-04-19 17:42 | XMS REPORT ---
Author Author Zeeshan El Organization eClinicalWorks Address Unknown Phone Unavailable Care Team Providers Care Forestry Pilot Name Role Phone Zeeshan El CP Unavailable Allergies No Known Allergies Problems Problem Type Condition Code Onset Dates Condition Status Problem Chronic pain syndrome G89.4 Active Problem Morbid (severe) obesity due to excess calories E66.01 Active Problem [facility] (current) use 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 Z79.891 Active [...] Instructions Start Date End Date Status Dosage [place] [facility] 66624262039 10-325 MG Orally BID December 05, 2017 Active 1 tablet as needed Omeprazole ND 36579849438 40 MG Orally Once a day Active 1 capsule Metoprolol & Diet Manage Prod NDC 0 50 MG Orally Active as directed Tramadol HCl ND 11952020981 50 MG Orally TID November 05, 2017 January 04, 2018 Active 1 tablet as needed Voltaren [facility] 27569274352 1 % Transdermal QID November 09, 2017 January 08, 2018 Active 2 grams to affected area as needed Vitamin B-12 ND 31032608247 Orally once a month Active not defined Quinapril HCl ND 20778420568 40 MG Orally Once a day Active 1tab TID PRN #120 NRF Results No Known Results Summary Purpose eClinicalWorks Submission
--- OUTSIDE RECORDS SUMMARY | 2018-04-19 17:42 | XMS REPORT ---
Author Author Zeeshan El Organization eClinical[employer] Address Unknown Phone Unavailable Care Team Providers Care Physical Laboratory Assistant Name Role Phone Zeeshan El CP Unavailable Allergies No Known Allergies Problems Problem Type Condition Code Onset Dates Condition Status Problem Morbid (severe) obesity due to excess calories E66.01 Active Problem Primary osteoarthritis of right knee M17.11 Active Problem skilled nursing (current) use 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 Z79.891 Active [...]
--- OUTSIDE RECORDS SUMMARY | 2018-04-19 17:42 | XMS REPORT ---
Author Author Tatianna Hinton Organization eClinicalWorks Address Unknown Phone Unavailable Care Team Providers Care Applications Support Engineer Name Role Phone Tatianna Hinton CP Unavailable [...] Problem Fatigue, unspecified type R53.83 Active Assessment Other dietary vitamin B12 deficiency anemia D51.3 Active Assessment Acute pain of left knee M25.562 Active Assessment Preoperative clearance Z01.818 Active Assessment Essential hypertension I10 Active Problem Anxiety F41.9 Active Assessment Fall, subsequent encounter W19.XXXD Active Problem S/P bariatric surgery Z98.84 Active Medications Medication Code System Code Instructions Start Date End Date Status Dosage Hydrocodone-Acetaminophen [facility] [address]-79 10-325 MG Orally every 6 hrs Active 1 tablet as needed Ketorolac Tromethamine [facility] [address]-89 Active not defined Medical Compression Stockings [facility] [address] as directed daily Mar 22, 2016 Active as directed Ferrous Sulfate [facility] [address]-50 220 (44 Fe) MG/5ML Orally Twice a day Jul 10, 2016 Active 5 ml Quinapril HCl [facility] [address]-21 20 MG Orally Once a day Active 1 tablet Citalopram Hydrobromide [facility] [address]-19 20 MG Orally Once a day Active 1 tablet Tramadol HCl [facility] [address]-98 50 MG Orally every 6 hrs Active 1 tablet as needed Vital Signs Date/Time: Jan 24, 2017 BMI 26.52 Index Weight 145 lbs Height 62 in Temperature 96.3 F Blood Pressure Diastolic 74 mm Hg Blood Pressure Systolic 118 mm Hg Results No Known Results Summary Purpose eClinicalWorks Submission
--- OUTSIDE RECORDS SUMMARY | 2018-04-19 17:42 | XMS REPORT ---
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 Z79.891 Active [...] Date End Date Status Dosage Quinapril HCl [facility] [address]-82 40 MG Orally Once a day Active 1tab TID PRN #120 NRF Metoprolol & Diet Manage Prod NDC 0 50 MG Orally Active as directed Omeprazole [facility] [address]-69 40 MG Orally Once a day Active 1 capsule Robaxin-750 [facility] [address]-01 750 MG Orally TID December 06, 2016 January 05, 2017 Active 1 tablet Diclofenac Sodium [facility] [address]-98 1 % Transdermal Four times a day Active 2g Robaxin-750 [facility] [address]-16 750 MG Orally every 8 hrs PRN December 29, 2016 Jan 28, 2017 Active 1 tablet [place] [facility] [address]-40 10-325 MG Orally QID Active 1 tablet as needed Vitamin B-12 [facility] [address] Orally once a month Active not defined Results No Known Results Summary Purpose eClinicalWorks Submission
--- OUTSIDE RECORDS SUMMARY | 2018-04-19 17:42 | XMS REPORT ---
Author Author Zeeshan El Organization eClinicalWorks Address Unknown Phone Unavailable Care Team Providers Care Desktop Specialist Name Role Phone Zeeshan El CP Unavailable Allergies No Known Allergies Problems Problem Type Condition Code Onset Dates Condition Status Problem Morbid (severe) obesity due to excess calories E66.01 Active Problem Primary osteoarthritis of right knee M17.11 Active Problem [facility] (current) use 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 Z79.891 Active [...]
--- OUTSIDE RECORDS SUMMARY | 2018-04-19 17:42 | XMS REPORT ---
Author Author Tatianna Hinton Organization eClinicalWorks Address Unknown Phone Unavailable Care Team Providers Care X Ray Service Engineer Name Role Phone Tatianna Hinton CP [...] disorder, single episode, unspecified F32.9 Active Assessment Other dietary vitamin B12 deficiency anemia D51.3 Active Assessment Primary insomnia F51.01 Active Problem Essential hypertension I10 Active Problem S/P bariatric surgery Z98.84 Active Assessment Primary osteoarthritis involving multiple joints M15.0 Active Problem Arthralgia of knee, right M25.561 Active Problem Anxiety F41.9 Active Problem Primary osteoarthritis, unspecified site M19.91 Active Medications Medication Code System Code Instructions Start Date End Date Status Dosage Quinapril HCl [facility] 17234872059 20 MG Orally Once a day Active 1 tablet Diclofenac Sodium [facility] 54640658309 1 % Transdermal bid prn September 28, 2017 Mar 27, 2018 Active as directed Celexa ND 22734641920 20 MG Orally Once a day Active 1 tablet Citalopram Hydrobromide [facility] 64397936707 40 mg Orally Once a day Active 1 tablet Trazodone HCl ND 40977790519 50 MG Orally Once a day November 13, 2017 Active 1 tablet at bedtime as needed Medical Compression Stockings ND 20061341366 as directed daily Mar 22, 2016 Active as directed Hydrocodone-Acetaminophen [facility] 93364103367 10-325 MG Orally As needed Active 1 tablet PredniSONE [facility] 69689939804 20 MG Orally Once a day November 13, 2017 November 18, 2017 Active 1 tablet Tramadol HCl [facility] 95158527129 50 MG Orally every 6 hrs Active 1 tablet as needed Alprazolam [facility] 62165558556 0.25 MG Orally bid prn May 04, 2017 Active 0.5 tab Calcium [facility] [address]-39 Active not defined Vital Signs Date/Time: November 13, 2017 BMI 27.25 Index Weight 149 lbs Height 62 in Temperature 97.0 F Blood Pressure Diastolic 70 mm Hg Blood Pressure Systolic 124 mm Hg Results No Known Results Summary Purpose eClinicalWorks Submission
--- OUTSIDE RECORDS SUMMARY | 2018-04-19 17:42 | XMS REPORT ---
Author Author Zeeshan El Organization eClinicalWorks Address Unknown Phone Unavailable Care Team Providers Care Fruit Loader Name Role Phone Zeeshan El Unavailable Allergies, Adverse Reactions, Alerts Substance Reaction Event Type Morphine Sulfate vomiting, nausea Drug Allergy Flexeril drowsy Drug Allergy Amitriptyline HCl nausea Drug Allergy Surgical tape rash Non Drug Allergy benadryl itchy, nausea Non Drug Allergy IODINE rash Non Drug Allergy Problems Problem Type Condition Code Onset Dates Condition Status Problem Chronic pain syndrome G89.4 Active Problem Morbid (severe) obesity due to excess calories E66.01 Active Problem intermediate (current) use 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 Z79.891 Active [...] joint of left knee M25.562 Active Assessment intermediate (current) use 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 Z79.891 Active Assessment Primary osteoarthritis of left knee M17.12 Active Assessment Chronic pain syndrome G89.4 Active Medications Medication Code System Code Instructions Start Date End Date Status Dosage Metoprolol & Diet Manage Prod NDC 0 50 MG Orally Active as directed Vitamin B-12 ND 49701929277 Orally once a month Active not defined Tramadol HCl ND 11262122182 50 MG Orally every 6 hrs PRN Aug 10, 2017 Active 1 tablet as needed Quinapril HCl ND 24696924177 40 MG Orally Once a day Active 1tab TID PRN #120 NRF Omeprazole ND 41035491930 40 MG Orally Once a day Active 1 capsule [place] ND 15472232762 10-325 MG Orally QID Active 1 tablet as needed Vital Signs Date/Time: Jun 11, 2017 BMI 25.98 Index Weight 137.5 lbs Height 61 in Temperature 97.5 F Cardiac Monitoring Heart Rate 60 /min Blood Pressure Diastolic 60 mm Hg Blood Pressure Systolic 118 mm Hg Results No Known Results Summary Purpose eClinicalWorks Submission
--- OUTSIDE RECORDS SUMMARY | 2018-04-19 17:42 | XMS REPORT ---
Author Author Tatianna Hinton Organization eClinicalWorks Address Unknown Phone Unavailable Care Team Providers Care Electronic Scale Subassembler Name Role Phone Tatianna Hinton CP Unavailable [...] Problem Fatigue, unspecified type R53.83 Active Assessment Fatigue, unspecified type R53.83 Active Assessment Major depressive disorder, single episode, unspecified F32.9 Active Assessment Primary insomnia F51.01 Active Assessment S/P bariatric surgery Z98.84 Active Problem Anxiety F41.9 Active Assessment Essential hypertension I10 Active Problem Essential hypertension I10 Active Medications Medication Code System Code Instructions Start Date End Date Status Dosage Tramadol HCl [facility] 88351544463 50 MG Orally every 6 hrs Active 1 tablet as needed Quinapril HCl [facility] 69189346372 20 MG Orally Once a day Active 1 tablet Hydrocodone-Acetaminophen [facility] 72243597298 10-325 MG Orally every 6 hrs Active 1 tablet as needed Medical Compression Stockings [facility] 07568289244 as directed daily Mar 22, 2016 Active as directed Ferrous Sulfate [facility] 38288818785 220 (44 Fe) MG/5ML Orally Twice a day Jul 10, 2016 Active 5 ml Citalopram Hydrobromide [facility] 69257903548 40 mg Orally Once a day Active 1 tablet Calcium [facility] [address]-96 Active not defined Alprazolam [facility] 00233197817 0.25 MG Orally once every night as needed for sleep May 04, 2017 Active 0.5 -1 tablet Ketorolac Tromethamine [facility] [address]-61 Active not defined Vital Signs Date/Time: May 04, 2017 BMI 25.97 Index Weight 142 lbs Height 62 in Temperature 95.1 F Blood Pressure Diastolic 73 mm Hg Blood Pressure Systolic 123 mm Hg Results No Known Results Summary Purpose eClinicalWorks Submission
--- OUTSIDE RECORDS SUMMARY | 2018-04-19 17:42 | XMS REPORT ---
Author Author Zeeshan El Organization e[employer] Address Unknown Phone Unavailable Care Team Providers Care Business Analytics Manager Name Role Phone Zeeshan El CP Unavailable [...]
--- OUTSIDE RECORDS SUMMARY | 2018-04-19 17:42 | XMS REPORT ---
Author Author Tatianna Hinton Organization e[employer] Address Unknown Phone Unavailable Care Team Providers Care Stockroom Selector Name Role Phone Tatianna Hinton CP Unavailable [...] I10 Active Assessment Anxiety F41.9 Active Assessment S/P bariatric surgery Z98.84 Active Problem Anxiety F41.9 Active Assessment Other dietary vitamin B12 deficiency anemia D51.3 Active Problem Essential hypertension I10 Active Medications Medication Code System Code Instructions Start Date End Date Status Dosage Citalopram Hydrobromide [facility] 92810161085 40 mg Orally Once a day Active 1 tablet Medical Compression Stockings [facility] 13460514589 as directed daily Mar 22, 2016 Active as directed Quinapril HCl ND 20991471893 20 MG Orally Once a day as needed Active 1 tablet Alprazolam [facility] 11456651059 0.25 MG Orally bid prn May 04, 2017 Active 0.5 Calcium [facility] [address]-78 Active not defined Hydrocodone-Acetaminophen ND 12582130618 10-325 MG Orally every 6 hrs Active 1 tablet as needed Vital Signs Date/Time: Jul 03, 2017 BMI 26.15 Index Weight 143 lbs Height 62 in Temperature 97.3 F Blood Pressure Diastolic 64 mm Hg Blood Pressure Systolic 101 mm Hg Results No Known Results Summary Purpose eClinicalWorks Submission
--- OUTSIDE RECORDS SUMMARY | 2018-04-19 17:42 | XMS REPORT ---
Author Author Tatianna Hinton Organization [employer] Address Unknown Phone Unavailable Care Team Providers Care Service Unit Operator Oil Well Name Role Phone Tatianna Hinton CP Unavailable [...] vitamin B12 deficiency anemia D51.3 Active Assessment Anxiety F41.9 Active Problem Anxiety F41.9 Active Assessment Essential hypertension I10 Active Problem Essential hypertension I10 Active Medications Medication Code System Code Instructions Start Date End Date Status Dosage Citalopram Hydrobromide [facility] 79750247889 40 mg Orally Once a day Active 1 tablet Calcium [facility] [address]-31 Active not defined Quinapril HCl [facility] 31999157442 20 MG Orally Once a day Active 1 tablet Alprazolam [facility] 21763445308 0.25 MG Orally bid prn May 04, 2017 Active 0.5 Medical Compression Stockings [facility] 09875800868 as directed daily Mar 22, 2016 Active as directed Hydrocodone-Acetaminophen [facility] 23923848237 10-325 MG Orally every 6 hrs Active 1 tablet as needed Vital Signs Date/Time: Jun 04, 2017 BMI 24.96 Index Weight 136.5 lbs Height 62 in Temperature 96.4 F Blood Pressure Diastolic 77 mm Hg Blood Pressure Systolic 135 mm Hg Results No Known Results Summary Purpose eClinicalWorks Submission
--- OUTSIDE RECORDS SUMMARY | 2018-04-19 17:42 | XMS REPORT ---
Author Author Zeeshan El Organization [employer] Address Unknown Phone Unavailable Care Team Providers Care Clerk Cashier Name Role Phone Zeeshan El CP Unavailable Allergies No Known Allergies Problems Problem Type Condition Code Onset Dates Condition Status Problem Chronic pain syndrome G89.4 Active Problem Morbid (severe) obesity due to excess calories E66.01 Active Problem senior care (current) use 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 Z79.891 [...]
--- OUTSIDE RECORDS SUMMARY | 2018-04-19 17:42 | XMS REPORT ---
Author Author Tatianna Hinton Organization [employer] Address Unknown Phone Unavailable Care Team Providers Care Company Doctor Name Role Phone Tatianna Hinton CP Unavailable Allergies No Known Allergies Problems Problem Type Condition Code Onset Dates Condition Status Problem Arthralgia of knee, right M25.561 Active Problem Primary osteoarthritis, unspecified site M19.91 Active Problem Essential hypertension I10 Active Problem Anxiety F41.9 Active Problem S/P bariatric surgery Z98.84 Active Problem Anxiety disorder, unspecified F41.9 Active Problem Major depressive disorder, single episode, unspecified F32.9 Active Problem Intractable cyclical vomiting with nausea G43.A1 Active Problem Nausea R11.0 Active Problem Other dietary vitamin B12 deficiency anemia D51.3 Active Problem Primary insomnia F51.01 Active Problem Fatigue, unspecified type R53.83 Active Medications Medication Code System Code Instructions Start Date End Date Status Dosage Keflex [facility] [address]-52 500 MG Orally every 12 hrs Jan 29, 2017 Feb 05, 2017 Active 1 capsule Results No Known Results Summary Purpose eClinicalWorks Submission
--- OUTSIDE RECORDS SUMMARY | 2018-04-19 17:43 | XMS REPORT ---
Author Author Tatianna Hinton [facility] eClinicalWorks Address Unknown Phone Unavailable Care Team Providers Care Marketing Editor Name Role Phone Tatianna Hinton Unavailable Allergies, Adverse Reactions, Alerts Substance Reaction Event Type Morphine Sulfate Info Not Available Drug Allergy Iodine Info Not Available Drug Allergy Benadryl Info Not Available Drug Allergy Encounters Encounter Location Date Unknown [facility] [place] Apr 03, 2016 Other [facility] [place] Apr 06, 2016 Unknown [facility] [place] Apr 14, 2016 surgery clearance [facility] [place] Apr 10, 2016 ESTABLISH PCP [facility] Feb 10, 2016 Unknown [facility] [place] Mar 23, 2016 NEW PT [facility] [place] Mar 22, 2016 Problems Problem Type Condition ICD-9 Code Onset Dates Condition Status Assessment Anxiety F41.9 Active Problem Arthralgia of knee, right M25.561 Active Problem S/P bariatric surgery Z98.84 Active Problem Essential hypertension I10 Active Assessment Essential hypertension I10 Active Assessment Arthralgia of knee, right M25.561 Active Problem Anxiety F41.9 Active Assessment Pre-operative clearance Z01.818 Active Medications Medication Code System Code Instructions Start Date End Date Status Dosage Potassium Chloride [facility] [address]-59 10 MEQ Orally Once a day Mar 22, 2016 Jun 20, 2016 Active 1 tablet with food Aspirin [facility] [address]-79 Active Unknown Hydrocodone-Acetaminophen [facility] [address]-80 5-325 MG Orally every 6 hrs Active 1 tablet as needed Furosemide [facility] [address]-53 20 MG Orally Twice a day Active 1 tablet Medical Compression Stockings [facility] [address] as directed daily Mar 22, 2016 Active as directed Quinapril HCl [facility] [address]-68 20 MG Orally Once a day Active 1 tablet Ketorolac Tromethamine [facility] [address]-46 10 MG Orally every 6 hrs Apr 21, 2016 Active 1 tablet as needed Atorvastatin Calcium [facility] [address]-64 20 MG Orally once every night Apr 03, 2016 Active 1 tablet Diazepam [facility] [address]-31 10 MG Orally twice a day (bid) Active 1 tablet as needed Social History Social History Element Qualifiers Date Reported Tobacco Use: . Are you a: Never Smoker Apr 10, 2016 Sexual Hx: . Had sex in the last 12 months (vaginal, oral, or anal)?: No, Have you ever had an STD?: No Apr 10, 2016 Marital Status: . Apr 10, 2016 Caffeine intake? . Status: No Apr 10, 2016 Do you exercise? . Answer: No Apr 10, 2016 Do you drink alcohol? . Do you drink alcohol? No Apr 10, 2016 Travel outside [place]: . NO Apr 10, 2016 Occupation: . Employed Apr 10, 2016 Vital Signs Date/Time: Apr 10, 2016 Weight 187 lbs Height 62 in Temperature 97.0 F Blood Pressure Diastolic 71 mm Hg Blood Pressure Systolic 106 mm Hg Results URINALYSIS (CULTURE IF INDICATED) Immunizations Vaccine Administration Date Influenza Apr 10, 2016 Summary Purpose eClinicalWorks Submission
--- OUTSIDE RECORDS SUMMARY | 2018-04-19 17:43 | XMS REPORT ---
Author Author Tatianna Hinton Organization e[employer] Address Unknown Phone Unavailable Care Team Providers Care Strategic Insights Lead Name Role Phone Tatianna Hinton Unavailable Encounters Encounter Location Date Unknown [facility] [place] Apr 03, 2016 Other [facility] [place] Apr 06, 2016 Unknown [facility] [place] Apr 14, 2016 surgery clearance [facility] [place] Apr 10, 2016 ESTABLISH PCP [facility] Feb 10, 2016 Unknown [facility] [place] Mar 23, 2016 NEW PT [facility] [place] Mar 22, 2016 Unknown [facility] [place] Apr 28, 2016 Unknown [facility] [place] Apr 24, 2016 WAnts Refill on meds [facility] [place] Apr 28, 2016 Problems Problem Type Condition ICD-9 Code Onset Dates Condition Status Problem Arthralgia of knee, right M25.561 Active Problem S/P bariatric surgery Z98.84 Active Problem Essential hypertension I10 Active Problem Anxiety F41.9 Active Social History Social History Element Qualifiers Date [...] 2016 Occupation: . Employed Apr 10, 2016 Summary Purpose eClinicalWorks Submission
--- OUTSIDE RECORDS SUMMARY | 2018-04-19 17:43 | XMS REPORT ---
Author Author Tatianna Hinton Organization eClinicalWorks Address Unknown Phone Unavailable Care Team Providers Care Summer Law Associate Name Role Phone Tatianna Hintno CP Unavailable Encounters Encounter Location Date Unknown [facility] [place] Apr 03, 2016 Other [facility] [place] Apr 06, 2016 ESTABLISH PCP [facility] Feb 10, 2016 Unknown Melvina Richards MD, [...] Use: . Are you a: Never Smoker Mar 22, 2016 Sexual Hx: . Had sex in the last 12 months (vaginal, oral, or anal)?: No, Have you ever had an STD?: No Mar 22, 2016 Marital Status: . Mar 22, 2016 Caffeine intake? . Status: No Mar 22, 2016 Do you exercise? . Answer: No Mar 22, 2016 Do you drink alcohol? . Do you drink alcohol? No Mar 22, 2016 Travel outside [place]: . NO Mar 22, 2016 Occupation: . Employed Mar 22, 2016 Summary Purpose eClinicalWorks Submission
--- OUTSIDE RECORDS SUMMARY | 2018-04-19 17:43 | XMS REPORT ---
Author Author Tatianna Hinton Organization e[employer] Address Unknown Phone Unavailable Care Team Providers Care Customer Service Agent Name Role Phone Tatianna Hinton CP Unavailable Encounters Encounter Location Date Unknown [facility] [place] Apr 03, 2016 Other [facility] [place] Apr 06, 2016 Unknown [facility] [place] Apr 14, 2016 surgery clearance [facility] [place] Apr 10, 2016 ESTABLISH PCP [facility] Feb 10, 2016 Unknown [facility] [place] Mar 23, 2016 NEW PT [facility] [place] Mar 22, 2016 Unknown [facility], [place] Apr 24, 2016 Problems Problem Type Condition ICD-9 Code Onset Dates Condition Status Problem Arthralgia of knee, right M25.561 Active Problem S/P bariatric surgery Z98.84 Active Problem Essential hypertension I10 Active Problem Anxiety F41.9 Active Assessment Arthralgia of knee, right M25.561 Active Medications Medication Code System Code Instructions Start Date End Date Status Dosage Ketorolac Tromethamine [facility] [address]-39 10 MG Orally every 6 hrs Jun 23, 2016 Active 1 tablet as needed Social History [...]
--- OUTSIDE RECORDS SUMMARY | 2018-04-19 17:43 | XMS REPORT ---
Author Author [facility] Address Unknown Phone Unavailable Care Team Providers Care Salvage Diver Name Role Phone Unavailable Unavailable Problems This patient has no known problems. Allergies, Adverse Reactions, Alerts This patient has no known allergies or adverse reactions. Medications This patient has no known medications. Encounters Start Date/Time End Date/Time Encounter Type Admission Type Attending [facility] Facility Care Department Encounter ID 2017-03-01 00:00:00 2017-03-01 00:00:00 Outpatient [facility] [id number] 2017-01-22 00:00:00 2017-01-22 00:00:00 Outpatient [facility] [id number] 2017-01-08 12:03:27 2017-01-08 12:03:27 Outpatient [facility] [id number] 2017-01-08 00:00:00 2017-01-08 00:00:00 Outpatient [facility] [id number] 2016-11-14 09:22:50 2016-11-14 09:22:50 Outpatient [facility] [id number]
--- OUTSIDE RECORDS SUMMARY | 2018-04-19 17:43 | XMS REPORT ---
Author Author Tatianna Hinton Organization eClinicalWorks Address Unknown Phone Unavailable Care Team Providers Care Lithographic Photographer Apprentice Name Role Phone Tatianna Hinton CP Unavailable Allergies, Adverse Reactions, Alerts Substance Reaction Event Type Morphine Sulfate Info Not Available Drug Allergy Iodine Info Not Available Drug Allergy Benadryl Info Not Available Drug Allergy Trazadone Info Not Available Non Drug Allergy Problems Problem Type Condition Code Onset Dates Condition Status Problem Other dietary vitamin B12 deficiency anemia D51.3 Active Problem Primary insomnia F51.01 Active Problem Fatigue, unspecified type R53.83 Active Problem Primary osteoarthritis involving multiple joints M15.0 Active Problem Primary osteoarthritis, right hand M19.041 Active Problem Intractable migraine without aura and without status migrainosus G43.019 Active Problem Major depressive disorder, single episode, unspecified F32.9 Active Problem Anxiety disorder, unspecified F41.9 Active Problem Primary osteoarthritis of left 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 Active Problem Intractable cyclical vomiting with nausea G43.A1 Active Assessment Intractable migraine without aura and without status migrainosus G43.019 Active Problem S/P bariatric surgery Z98.84 Active Problem Arthralgia of knee, right M25.561 Active Problem Anxiety F41.9 Active Problem Primary osteoarthritis, unspecified site M19.91 Active Problem Essential hypertension I10 Active Problem Nausea R11.0 Active Medications Medication Code System Code Instructions Start Date End Date Status Dosage Alprazolam ND 54968657386 0.25 MG Orally bid prn May 04, 2017 Active 1 tab in am and half at bedtime Quinapril HCl ND 72196179954 20 MG Orally Once a day Active 1 tablet Medical Compression Stockings [facility] 27112041802 as directed daily Mar 22, 2016 Active as directed Tramadol HCl ND 85917272945 50 MG Orally every 6 hrs Active 1 tablet as needed Promethazine HCl [facility] 67055490488 12.5 MG Orally every 12 hrs as needed for nausea Mar 29, 2018 Apr 03, 2018 Active 1 tablet as needed Citalopram Hydrobromide [facility] 90184647642 40 mg Orally Once a day Active 1 tablet Vital Signs Date/Time: Mar 29, 2018 BMI 28.26 Index Weight 154.5 lbs Height 62 in Temperature 98.6 F Blood Pressure Diastolic 85 mm Hg Blood Pressure Systolic 153 mm Hg Results No Known Results Summary Purpose eClinicalWorks Submission
--- OUTSIDE RECORDS SUMMARY | 2018-04-19 17:43 | XMS REPORT ---
Author Author Tatianna Hinton Organization e[employer] Address Unknown Phone Unavailable Care Team Providers Care Nitroglycerin Distributor Name Role Phone Tatianna Hinton Unavailable Encounters Encounter Location Date Unknown [facility] [place] Apr 03, 2016 Other [facility] [place] Apr 06, 2016 Unknown [facility] [place] Apr 14, 2016 surgery clearance Mel[facility], [place] Apr 10, 2016 ESTABLISH PCP [facility] Feb 10, 2016 Unknown Melvina Richards MD, [...]
--- OUTSIDE RECORDS SUMMARY | 2018-04-19 17:43 | XMS REPORT ---
Author Author Tatianna Hinton Organization e[employer]Works Address Unknown Phone Unavailable Care Team Providers Care Scratcher Name Role Phone Tatianna Hinton CP Unavailable Encounters Encounter Location Date ESTABLISH PCP [facility] Feb 10, 2016 Unknown [facility] [place] Mar 23, 2016 Problems Problem Type Condition ICD-9 Code [...]
--- OUTSIDE RECORDS SUMMARY | 2018-04-19 17:43 | XMS REPORT ---
Author Author Tatianna Hinton [facility] eClinicalWorks Address Unknown Phone Unavailable Care Team Providers Care Cupola Worker Name Role Phone Tatianna Hinton Unavailable Allergies, [...] MD, PA Apr 10, 2016 ESTABLISH PCP [facility] Feb 10, 2016 Unknown [facility] [place] Mar 23, 2016 NEW PT [facility] [place] Mar 22, 2016 Unknown [facility], [place] Apr 28, 2016 Unknown [facility] [place] Apr 24, 2016 WAnts Refill on meds [facility] [place] Apr 28, 2016 Sick Visit [facility] [place] Jul 19, 2016 Sick Visit [facility], [place] August 29, 2016 Unknown [facility] [place] Jun 27, 2016 3 month f/u [facility] [place] Jul 10, 2016 Problems Problem Type Condition ICD-9 Code Onset Dates Condition Status Problem S/P bariatric surgery Z98.84 Active Problem Essential hypertension I10 Active Problem Arthralgia of knee, right M25.561 Active Problem Major depressive disorder, single episode, unspecified F32.9 Active Problem Primary insomnia F51.01 Active Problem Anxiety disorder, unspecified F41.9 Active Problem Other dietary vitamin B12 deficiency anemia D51.3 Active Problem Primary osteoarthritis, unspecified site M19.91 Active Problem Fatigue, unspecified type R53.83 Active Problem Nausea R11.0 Active Assessment Hot flashes R23.2 Active Assessment Anxiety disorder, unspecified F41.9 Active Assessment Major depressive disorder, single episode, unspecified F32.9 Active Assessment Primary insomnia F51.01 Active Problem Anxiety F41.9 Active Medications Medication Code System Code Instructions Start Date End Date Status Dosage Quinapril HCl [facility] [address]-50 20 MG Orally Once a day Active 1 tablet Cyanocobalamin [facility] [address]-75 1000 MCG Sublingual Once a day Jul 10, 2016 December 07, 2016 Active 1 tablet under the tongue and allow to dissolve Medical Compression Stockings [facility] [address] as directed daily Mar 22, 2016 Active as directed Atorvastatin Calcium [facility] 06348787571 20 MG Orally once every night Active 1 tablet Aspirin [facility] [address]-00 Active Unknown Diazepam [facility] [address]-91 10 MG Orally once every night Aug 07, 2016 Active 1 tablet as needed Cyanocobalamin [facility] 90958-[address]31 2500 MCG Sublingual Once a day Jul 19, 2016 October 17, 2016 Active as directed Venlafaxine HCl [facility] [address]-10 25 MG Orally daily August 29, 2016 Active 1 tablet with food Gabapentin [facility] [address]-06 100 MG Orally once every night August 29, 2016 Active 2 capsule Furosemide [facility] [address]-59 20 MG Orally Twice a day Active 1 tablet Ferrous Sulfate [facility] [address]-53 220 (44 Fe) MG/5ML Orally Twice a day Jul 10, 2016 Active 5 ml Hydrocodone-Acetaminophen [facility] [address]-46 5-325 MG Orally every 6 hrs Active 1 tablet as needed Diazepam [facility] [address]-81 10 MG Orally twice a day (bid) Active 1 tablet as needed Social History Social History Element Qualifiers Date Reported Tobacco Use: . Are you a: Never Smoker August 29, 2016 Sexual Hx: . Had sex in the last 12 months (vaginal, oral, or anal)?: No, Have you ever had an STD?: No August 29, 2016 Marital Status: . August 29, 2016 Caffeine intake? . Status: No August 29, 2016 Do you exercise? . Answer: No August 29, 2016 Do you drink alcohol? . Do you drink alcohol? No August 29, 2016 Travel outside [place]: . NO August 29, 2016 Occupation: . Employed August 29, 2016 Vital Signs Date/Time: August 29, 2016 Weight 164 lbs Height 62 in Temperature 96.9 F Blood Pressure Diastolic 76 mm Hg Blood Pressure Systolic 104 mm Hg Summary Purpose eClinicalWorks Submission
--- OUTSIDE RECORDS SUMMARY | 2018-04-19 17:43 | XMS REPORT ---
Author Author Tatianna Hinton [facility] eClinicalWorks Address Unknown Phone Unavailable Care Team Providers Care Pleat Patternmaker Name Role Phone Tatianna Hinton Unavailable Allergies, [...] MD, PA Apr 10, 2016 ESTABLISH PCP [facility] Feb 10, 2016 Unknown Melvina [facility], [place] Mar 23, 2016 NEW PT [facility], [place] Mar 22, 2016 Unknown [facility], [place] Apr 28, 2016 Unknown [facility], [place] Apr 24, 2016 WAnts Refill on meds [facility], [place] Apr 28, 2016 Sick Visit Melvina Richards [facility], [place] Jul 19, 2016 Unknown [facility], [place] Jun 27, 2016 3 month f/u Melvina [place], [place] Jul 10, 2016 Problems Problem Type Condition ICD-9 Code Onset Dates Condition Status Assessment Nausea R11.0 Active Problem Anxiety F41.9 Active Assessment Fatigue, unspecified type R53.83 Active Assessment Other dietary vitamin B12 deficiency anemia D51.3 Active Problem Nausea R11.0 Active Problem Other dietary vitamin B12 deficiency anemia D51.3 Active Problem Fatigue, unspecified type R53.83 Active Problem Arthralgia of knee, right M25.561 Active Problem S/P bariatric surgery Z98.84 Active Problem Primary osteoarthritis, unspecified site M19.91 Active Problem Essential hypertension I10 Active Medications Medication Code System Code Instructions Start Date End Date Status Dosage Cyanocobalamin [facility] [address]-37 1000 MCG Sublingual Once a day Jul 10, 2016 December 07, 2016 Active 1 tablet under the tongue and allow to dissolve Aspirin [facility] [address]-49 Active Unknown Medical Compression Stockings [facility] [address]45 as directed daily Mar 22, 2016 Active as directed Ibuprofen [facility] [address]-81 800 MG Orally Three times a day (drink plenty of water) Jun 27, 2016 Jul 27, 2016 Active 1 tablet Quinapril HCl [facility] [address]-62 20 MG Orally Once a day Active 1 tablet Hydrocodone-Acetaminophen [facility] [address]-88 5-325 MG Orally every 6 hrs Active 1 tablet as needed Furosemide [facility] [address]-53 20 MG Orally Twice a day Active 1 tablet Atorvastatin Calcium [facility] 00294805815 20 MG Orally once every night Active 1 tablet Diazepam [facility] [address]-91 10 MG Orally twice a day (bid) Active 1 tablet as needed Ferrous Sulfate [facility] [address]-59 220 (44 Fe) MG/5ML Orally Twice a day Jul 10, 2016 Active 5 ml Cyanocobalamin [facility] [address]09-[address] 2500 MCG Sublingual Once a day Jul 19, 2016 October 17, 2016 Active as directed Social History Social History Element Qualifiers Date Reported Tobacco Use: . Are you a: Never Smoker Jul 19, 2016 Sexual Hx: . Had sex in the last 12 months (vaginal, oral, or anal)?: No, Have you ever had an STD?: No Jul 19, 2016 Marital Status: . Jul 19, 2016 Caffeine intake? . Status: No Jul 19, 2016 Do you exercise? . Answer: No Jul 19, 2016 Do you drink alcohol? . Do you drink alcohol? No Jul 19, 2016 Travel outside [place]: . NO Jul 19, 2016 Occupation: . Employed Jul 19, 2016 Family history Qualifier Description Comment Date Reported Maternal Grandmother Comment not available Jul 19, 2016 Paternal Grandmother Comment not available Jul 19, 2016 Children Comment not available Jul 19, 2016 Maternal Grandfather Comment not available Jul 19, 2016 Father Comment not available Jul 19, 2016 Brother(s) Comment not available Jul 19, 2016 Mother Comment not available Jul 19, 2016 Paternal Grandfather Comment not available Jul 19, 2016 Sister(s) Comment not available Jul 19, 2016 Other: Comment not available Jul 19, 2016 General Family History Comment not available Jul 19, 2016 Vital Signs Date/Time: Jul 19, 2016 Weight 170 lbs Height 62 in Temperature 97.1 F Blood Pressure Diastolic 80 mm Hg Blood Pressure Systolic 103 mm Hg Immunizations Vaccine Administration Date B 12 Vit Inj Jul 19, 2016 Summary Purpose eClinicalWorks Submission
--- OUTSIDE RECORDS SUMMARY | 2018-04-19 17:43 | XMS REPORT ---
Author Author Tatianna Hinton Organization [employer] Address Unknown Phone Unavailable Care Team Providers Care Winchman/Crane Operator Name Role Phone Tatianna Hinton CP Unavailable Encounters Encounter Location Date Unknown [facility] [place] [place] Apr 03, 2016 Other [facility] [place] Apr 06, 2016 Unknown [facility] [place] [place] Apr 14, 2016 ESTABLISH PCP [facility] Feb 10, 2016 Unknown Melvina [...]
--- OUTSIDE RECORDS SUMMARY | 2018-04-19 17:43 | XMS REPORT ---
Author Author Tatianna Hinton Organization [employer] Address Unknown Phone Unavailable Care Team Providers Care Rail Transportation Operator Name Role Phone Tatianna Hinton CP [...] single episode, unspecified F32.9 Active Assessment Primary osteoarthritis, unspecified site M19.91 Active Assessment Anxiety F41.9 Active Assessment Major depressive disorder, single episode, unspecified F32.9 Active Problem Essential hypertension I10 Active Problem S/P bariatric surgery Z98.84 Active Assessment Essential hypertension I10 Active Problem Arthralgia of knee, right M25.561 Active Problem Anxiety F41.9 Active Problem Primary osteoarthritis, unspecified site M19.91 Active Medications Medication Code System Code Instructions Start Date End Date Status Dosage Calcium [facility] [address]-22 Active not defined Trazodone HCl [facility] 63510470226 50 MG Orally Once a day November 13, 2017 January 07, 2018 Inactive 1 tablet at bedtime as needed Tramadol HCl ND 03959866703 50 MG Orally every 6 hrs Active 1 tablet as needed Diclofenac Sodium [facility] 08985772502 1 % Transdermal bid prn September 28, 2017 Mar 27, 2018 Active as directed Citalopram Hydrobromide ND 31142648483 40 mg Orally Once a day Active 1 tablet Medical Compression Stockings ND 79102967358 as directed daily Mar 22, 2016 Active as directed Quinapril HCl [facility] 14123967037 20 MG Orally Once a day Active 1 tablet Alprazolam [facility] 94848760061 0.25 MG Orally bid prn May 04, 2017 Active 0.5 tab Vital Signs Date/Time: January 07, 2018 BMI 27.80 Index Weight 152 lbs Height 62 in Temperature 97.4 F Blood Pressure Diastolic 75 mm Hg Blood Pressure Systolic 125 mm Hg Results No Known Results Summary Purpose eClinicalWorks Submission
--- OUTSIDE RECORDS SUMMARY | 2018-04-19 17:43 | XMS REPORT ---
Author Author Guido Polk Organization [employer] Address Unknown Phone Unavailable Care Team Providers Care Car Sales Associate Name Role Phone Guido Polk CP Unavailable Allergies, Adverse Reactions, Alerts Substance Reaction Event Type Morphine Sulfate Info Not Available Drug Allergy Iodine Info Not Available Drug Allergy Benadryl Info Not Available Drug Allergy Encounters Encounter Location Date ESTABLISH PCP [facility] Feb 10, 2016 Problems Problem Type Condition ICD-9 Code Onset Dates Condition Status Assessment Anxiety F41.9 Active Assessment Chronic pain G89.29 Active Assessment Arthritis of both knees M19.90 Active Problem Arthritis of both knees M19.90 Active Problem Anxiety F41.9 Active Problem Chronic pain G89.29 Active Problem Pure hypercholesterolemia E78.0 Active Assessment Encounter for general adult medical examination without abnormal findings Z00.00 Active Problem Panic disorder F41.0 Active Problem Essential (primary) hypertension I10 Active Assessment Pure hypercholesterolemia E78.0 Active Assessment Essential (primary) hypertension I10 Active Assessment Panic disorder F41.0 Active Medications Medication Code System Code Instructions Start Date End Date Status Dosage Amitriptyline HCl [facility] [address]-61 25 MG Orally Once a day Inactive 1 tablet Promethazine HCl [facility] [address]-39 25 MG Rectal every four to six hours Active 1 suppository as needed Swan [facility] [address]-10 10-325 MG Orally every 6 hrs Active 1 tablet as needed Fluoxetine [facility] [address]-13 10 MG Orally Once a day Active 1 capsule in the morning Diazepam [facility] [address]-11 10 MG Orally Twice a day Active 1 tablet as needed Quinapril HCl [facility] [address]-94 10 mg Orally Once a day prn Active 1 tablet Atorvastatin Calcium [facility] [address]-81 40 MG Orally Once a day Inactive 1 tablet MiraLax [facility] [address]-51 Orally Once a day Active 1 packet mixed with 8 ounces of fluid Social History Social History Element Qualifiers Date Reported Tobacco Use: . Are you a: never smoker, Additional Findings: Tobacco Non-User Current non-smoker Feb 10, 2016 Use of recreational / street drugs? . Answer: No Feb 10, 2016 Do you drink alcohol? . Status: No Feb 10, 2016 Occupation: . unemployed Feb 10, 2016 Vital Signs Date/Time: Feb 10, 2016 Weight 208.2 lbs Height 60.3 in Temperature 98.3 F Cardiac Monitoring Heart Rate 62 /min Blood Pressure Diastolic 90 mm Hg Blood Pressure Systolic 131 mm Hg Summary Purpose eClinicalWorks Submission
--- OUTSIDE RECORDS SUMMARY | 2018-04-19 17:43 | XMS REPORT ---
Author Author Zeeshan lE Organization [employer] Address Unknown Phone Unavailable Care Team Providers Care Marine Firer Name Role Phone Zeeshan El CP Unavailable Allergies No Known Allergies Problems Problem Type Condition Code Onset Dates Condition Status Problem [facility] (current) use 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 Z79.891 Active Problem Primary osteoarthritis of left knee M17.12 Active Problem Morbid (severe) obesity due to excess calories E66.01 Active Assessment Primary osteoarthritis of left knee M17.12 Active Problem Chronic pain syndrome G89.4 Active Problem Spasm of muscle M62.838 Active Problem Nutritional deficiency E63.9 Active Problem Polyarthralgia M25.50 Active Problem Pain in joint of right knee M25.561 Active Problem Primary osteoarthritis of right knee M17.11 Active Problem Radiculopathy, lumbar region M54.16 Active Problem Pain in joint of left knee M25.562 Active Medications Medication Code System Code Instructions Start Date End Date Status Dosage Vitamin B-12 [facility] 39626604247 Orally once a month Active not defined Medrol Dose Rahul [facility] 61084539147 4mg Orally once a day January 04, 2018 Active as directed Acetaminophen-Codeine #3 NDC 19279636260 300-30 MG Orally daily January 04, 2018 Feb 03, 2018 Active 1 tablet as needed Metoprolol & Diet Manage Prod NDC 0 50 MG Orally Active as directed Omeprazole ND 10634040046 40 MG Orally Once a day Active 1 capsule Tramadol HCl ND 82751152354 50 MG Orally every 6 hrs Active 1 tablet as needed Tramadol NDC 0 50 mg orally every 4-6 hours prn pain Active one tab Naproxen NDC 98524607270 500 MG Orally every 12 hrs January 09, 2018 Feb 08, 2018 Active 1 tablet with food or milk as needed Quinapril HCl ND 48597521698 40 MG Orally Once a day Active 1tab TID PRN #120 [facility] Results No Known Results Summary Purpose eClinicalWorks Submission
--- OUTSIDE RECORDS SUMMARY | 2018-04-19 17:43 | XMS REPORT ---
Author Author Tatianna Hinton [facility] e[employer] Address Unknown Phone Unavailable Care Team Providers Care Warehouse Insulation Worker Name Role Phone Tatianna Hinton Unavailable Allergies, Adverse Reactions, Alerts Substance Reaction Event Type Morphine Sulfate Info Not Available Drug Allergy Iodine Info Not Available Drug Allergy Benadryl Info Not Available Drug Allergy Encounters Encounter Location Date ESTABLISH PCP [facility] Feb 10, 2016 Unknown [facility] [place] [place] Mar 23, 2016 NEW [place] Mar 22, 2016 Problems Problem Type Condition ICD-9 Code Onset Dates Condition Status Assessment Preoperative clearance Z01.818 Active Assessment Anxiety F41.9 Active Assessment Bilateral lower extremity edema R60.0 Active Problem Arthralgia of knee, right M25.561 Active Problem S/P bariatric surgery Z98.84 Active Problem Essential hypertension I10 Active Assessment Arthralgia of knee, right M25.561 Active Assessment S/P bariatric surgery Z98.84 Active Problem Anxiety F41.9 Active Assessment Essential hypertension I10 Active Medications Medication Code System Code Instructions Start Date End Date Status Dosage Furosemide [facility] [address]-85 20 MG Orally Twice a day Active 1 tablet Diazepam [facility] [address]-86 10 MG Orally once a day Active 1 tablet as needed Ketorolac Tromethamine [facility] [address]-11 10 MG Orally every 6 hrs Apr 21, 2016 Active 1 tablet as needed Aspirin [facility] [address]-08 Active Unknown Potassium Chloride Huong ER [facility] [address]-76 10 MEQ Orally Once a day Mar 22, 2016 Jun 20, 2016 Active 1 tablet with food Medical Compression Stockings [facility] [address] as directed daily Mar 22, 2016 Active as directed Quinapril HCl [facility] [address]-65 20 MG Orally Once a day Active 1 tablet Hydrocodone-Acetaminophen [facility] [address]-67 5-325 MG Orally every 6 hrs Active 1 tablet as needed Social History [...] 2016 Occupation: . Employed Mar 22, 2016 Vital Signs Date/Time: Mar 22, 2016 Weight 202 lbs Height 62 in Temperature 97.2 F Blood Pressure Diastolic 86 mm Hg Blood Pressure Systolic 132 mm Hg Summary Purpose eClinicalWorks Submission
--- OUTSIDE RECORDS SUMMARY | 2018-04-19 17:43 | XMS REPORT ---
Author Author Tatianna Hinton Organization [employer] Address Unknown Phone Unavailable Care Team Providers Care B2B Outside Sales Representative Name Role Phone Tatianna Hinton Unavailable Encounters Encounter Location Date Unknown [facility] [place] Apr 03, 2016 Other [facility] [place] Apr 06, 2016 Unknown [facility] [place] Apr 14, 2016 surgery clearance Mel[facility] [place] Apr 10, 2016 ESTABLISH PCP [facility] Feb 10, 2016 Unknown [place] Jun 27, 2016 Unknown Melvina Richards [place], [place] Mar [...] I10 Active Problem Anxiety F41.9 Active Assessment Anxiety F41.9 Active Medications Medication Code System Code Instructions Start Date End Date Status Dosage Ibuprofen [facility] [address]-33 800 MG Orally Three times a day (drink plenty of water) Jun 27, 2016 Jul 27, 2016 Active 1 tablet Diazepam [facility] [address]-62 10 MG Orally twice a day (bid) [...]
--- OUTSIDE RECORDS SUMMARY | 2018-04-19 17:43 | XMS REPORT ---
Author Author Tatianna Hinton Organization [employer] Address Unknown Phone Unavailable Care Team Providers Care Support Director Name Role Phone Tatianna Hinton CP Unavailable Encounters Encounter Location Date Unknown Mel[facility] [place] [place] Apr 03, 2016 ESTABLISH PCP [facility] Feb 10, 2016 Unknown Melv[facility] [place] [facility], [place] Mar 23, 2016 NEW PT [facility], [place] Mar 22, 2016 Problems Problem Type Condition ICD-9 Code Onset Dates Condition Status Problem Arthralgia of knee, right M25.561 Active Problem S/P bariatric surgery Z98.84 Active Problem Essential hypertension I10 Active Problem Anxiety F41.9 Active Medications Medication Code System Code Instructions Start Date End Date Status Dosage Atorvastatin Calcium [facility] [address]-54 20 MG Orally once every night Apr 03, 2016 Active 1 tablet Social History Social History Element Qualifiers Date [...]
--- OUTSIDE RECORDS SUMMARY | 2018-04-19 17:43 | XMS REPORT ---
Author Author Tatianna Hinton [facility] e[employer]Works Address Unknown Phone Unavailable Care Team Providers Care Scientific Laboratory Supervisor Name Role Phone Tatianna Hinton Unavailable Allergies, [...] [facility], [place] Mar 23, 2016 3 month f/u [facility] [place] Jul 10, 2016 NEW PT [facility] [place] Mar 22, 2016 Unknown Mel[facility], [place] Apr 28, 2016 Unknown [facility] [place] Apr 24, 2016 WAnts Refill on meds [facility], [place] Apr 28, 2016 Problems Problem Type Condition ICD-9 Code Onset Dates Condition Status Assessment Primary osteoarthritis, unspecified site M19.91 Active Assessment Hx of bariatric surgery Z98.84 Active Problem Essential hypertension I10 Active Problem Arthralgia of knee, right M25.561 Active Problem Primary osteoarthritis, unspecified site M19.91 Active Assessment Iron deficiency anemia, unspecified iron deficiency anemia type D50.9 Active Assessment Non-intractable vomiting with nausea, unspecified vomiting type R11.2 Active Problem S/P bariatric surgery Z98.84 Active Problem Anxiety F41.9 Active Medications Medication Code System Code Instructions Start Date End Date Status Dosage Furosemide [facility] [address]-00 20 MG Orally Twice a day Active 1 tablet Quinapril HCl [facility] [address]-35 20 MG Orally Once a day Active 1 tablet Ibuprofen [facility] [address]-86 800 MG Orally Three times a day (drink plenty of water) Jun 27, 2016 Jul 27, 2016 Active 1 tablet Diazepam [facility] [address]-58 10 MG Orally twice a day (bid) Active 1 tablet as needed Medical Compression Stockings [facility] [address] as directed daily Mar 22, 2016 Active as directed Aspirin [facility] [address]-16 Active Unknown Cyanocobalamin [facility] [address]-72 1000 MCG Sublingual Once a day Jul 10, 2016 December 07, 2016 Active 1 tablet under the tongue and allow to dissolve Atorvastatin Calcium [facility] 38969256404 20 MG Orally once every night Active 1 tablet Ferrous Sulfate [facility] [address]-15 220 (44 Fe) MG/5ML Orally Twice a day Jul 10, 2016 Active 5 ml Hydrocodone-Acetaminophen [facility] [address]-97 5-325 MG Orally every 6 hrs Active [...] Jul 19, 2016 Vital Signs Date/Time: Jul 10, 2016 Weight 174 lbs Height 62 in Temperature 97.3 F Blood Pressure Diastolic 72 mm Hg Blood Pressure Systolic 100 mm Hg Immunizations Vaccine Administration Date B-12 Do Not Use Jul 10, 2016 Summary Purpose eClinicalWorks Submission
--- OUTSIDE RECORDS SUMMARY | 2018-04-19 17:43 | XMS REPORT ---
Author Author Tatianna Hinton Organization [employer] Address Unknown Phone Unavailable Care Team Providers Care Equity Sales Assistant Name Role Phone Tatianna Hinton CP Unavailable [...] D51.3 Active Assessment Primary insomnia F51.01 Active Assessment Heart murmur R01.1 Active Assessment Essential hypertension I10 Active Problem Essential hypertension I10 Active Problem S/P bariatric surgery Z98.84 Active Assessment Anxiety F41.9 Active Problem Arthralgia of knee, right M25.561 Active Problem Anxiety F41.9 Active Problem Primary osteoarthritis, unspecified site M19.91 Active Medications Medication Code System Code Instructions Start Date End Date Status Dosage Tramadol HCl [facility] 22734804451 50 MG Orally every 6 hrs Active 1 tablet as needed Medical Compression Stockings ND 06162014939 as directed daily Mar 22, 2016 Active as directed Alprazolam ND 17452678291 0.25 MG Orally bid prn May 04, 2017 Active 1 tab in am and half at bedtime Quinapril HCl [facility] 92515239225 20 MG Orally Once a day Active 1 tablet Citalopram Hydrobromide [facility] 95042529442 40 mg Orally Once a day Active 1 tablet Vital Signs Date/Time: Sept 18, 2018 BMI 28.16 Index Weight 154 lbs Height 62 in Temperature 98.1 F Blood Pressure Diastolic 77 mm Hg Blood Pressure Systolic 135 mm Hg Results No Known Results Summary Purpose eClinicalWorks Submission
--- NOTE | 2018-04-19 19:00 | Diagnostic Imaging Report ---
Left knee 3 - views HISTORY: Fall. COMPARISON: None FINDINGS: No displaced fracture. Osseous alignment is within normal limits. Compartmental degenerative changes most markedly involving the medial compartment. Small suprapatellar joint effusion. IMPRESSION: No acute osseous abnormality. Degenerative osteoarthrosis. Signed by: Dr. Edu Milton M.D. on 04/19/2018 6:57 PM
[2018-04-19] MEDS ORDERED: PROMETHAZINE HC25 M1 PO (19:24)
[2018-04-19] MEDS ORDERED: DICLOFENAC POTA50 MG PO (19:24)
[2018-04-19 19:43] VITALS: BP 146/84
== END 2018-04-19 19:48 | disposition home or self-care (01) ==
LOC: ER 17:36 → FSED 19:48
DX: S83.422A Sprain of lateral collateral ligament of left knee, initial encounter (principal); R51 Headache; X50.1XXA Overexertion from prolonged static or awkward postures, initial encounter; Y99.0 Civilian activity done for income or pay
CPT/HCPCS: 99283

== ENCOUNTER 2018-09-23 16:10 | Emergency (ER) | payer MEDICARE, BC ==
[~2018-09-23] VITALS: Ht 154.9 cm; Wt 67.1 kg
[~2018-09-23 16:10] MED LIST changes: +DICLOFENAC POTA50 MG PO; +PROMETHAZINE HC25 M1 PO
--- OUTSIDE RECORDS SUMMARY | 2018-09-23 16:13 | XMS REPORT | Clinical Summary ---
Author Author [facility] [place] [facility] Organization [facility] Address Unknown Phone Unavailable Care Team Providers Care Sewer Pipe Sorter Name Role Phone Tana Howell MD PCP Allergies Comments Active Allergy Reactions Severity Noted Date Diphenhydramine Hcl 02/25/2016 Codeine Itching 02/25/2016 Iodine Itching 02/25/2016 Morphine 02/25/2016 Medications End Date Status Medication Sig Dispensed Refills Start Date Active polyethylene glycol TAKE 1 PACKET 1 (MIRALAX) 17 gram packet BY MOUTH 6 EVERY DAY NEEDED FOR 20 DAYS. Active sucralfate (CARAFATE) 1 Take 1 g by 0 gram tablet mouth every 6 6 (six) hours. Active HYDROcodone-acetaminophen TAKE 1 TABLET 0 (NORCO 10-325) 10-325 mg BY MOUTH 4 6 per tablet TIMES A DAY NEEDED FOR PAIN Active furosemide (LASIX) 40 MG Take 40 mg by 0 tablet mouth 2 (two) times a day. Active FLUoxetine (PROzac) 20 MG Take 1 30 capsule 2 capsuleIndications: capsule (20 6 Depression with anxiety mg total) by mouth daily. Active atorvastatin (LIPITOR) 40 Take 1 tablet 90 tablet 1 MG tablet (40 mg total) 6 by mouth daily. Active traZODone (DESYREL) 50 MG TAKE 1 TABLET 30 tablet 0 tablet BY MOUTH 6 NIGHTLY NEEDED FOR SLEEP FOR UP TO 30 DAYS. Active Problems Problem Noted Date Bilateral swelling of feet 02/25/2016 Primary osteoarthritis of both knees 02/25/2016 Depression with anxiety 02/25/2016 PUD (peptic ulcer disease) 02/25/2016 Essential hypertension 02/25/2016 Bariatric surgery status 02/25/2016 Atopic rhinitis 08/30/2012 Immunizations Name Dates Previously Given Next Due Influenza (IM) 04/29/2013 Preservative Free Tdap 12/31/2012 Social History Date Tobacco Use Types Packs/Day Years Used Never Smoker Smokeless Tobacco: Never Used Alcohol Use Drinks/Week oz/Week Comments No Sex Assigned at Date Recorded Not on file Industry Job Start Date Occupation Not on file Not on file Not on file Travel End Travel History Travel Start No recent travel history available. Last Filed Vital Signs Not on file Plan of Treatment Health Maintenance Due Date Last Done Comments BREAST CANCER SCREENING 10/29/1999 SHINGLES VACCINES (#1) 10/29/1999 65+ PNEUMOCOCCAL VACCINE 2014 (1 of 2 - PCV13) PNEUMOCOCCAL 2014 POLYSACCHARIDE VACCINE AGE 65 AND OVER INFLUENZA VACCINE 01/23/2018 COLON CANCER SCREENING 07/27/2025 07/27/2015 Results Not on fileafter 09/22/2017 Insurance Payer Benefit Subscriber ID Type Phone Address Plan / Group MEDICARE MEDICARE xxxxxxxxxx Medicare [place], [place] PART A AND B BCBS MEDICARE BLUE xxxxxxxxxxxx PPO MEDICARE ADVANTAGE PPO ([place]) [place] [address] Advance Directives Patient has advance care planning documents on file. For more information, durga bautista contact: Will Parada [phone] [place] [address]
--- OUTSIDE RECORDS SUMMARY | 2018-09-23 16:15 | XMS REPORT | Continuity of Care Document ---
Author Author [facility] Interface Address Unknown Phone Unavailable Problems Problem Status Onset Date Classification Date Reported Comments Source Abnormal electrocardiogram [ECG] [EKG] 07/07/2017 10/09/2017 [facility] R94.31 *DR WELLS TO PERFORM Active 06/15/2017 [facility] LT KNEE OA Active 01/23/2017 [facility] Discharge Diagnosis: Dehydration 10/10/2016 10/13/2016 [facility] DEHYDRATED/DIZZINESS Active 10/10/2016 [facility] UNK Active 09/07/2016 [facility] TKR Active 06/25/2016 [facility] BILAT KNEE PAIN Active 06/25/2016 [facility] BLOATING / GASTROPARESIS Active 05/05/2015 [facility] ABD PAIN Active 03/24/2015 [facility] V76.12 - SCREEN MAMMOGRA Active 02/19/2015 [facility] [address] 281.0,531.90 Active 01/28/2015 [facility] ABN EKG, CHEST PAIN, SOB *VAISHNAVI T Active 01/28/2015 [facility] 530.81 Active 12/28/2014 [facility] MORBID OBESITY Active 12/03/2014 [facility] 789.04 - ABDMNAL PAIN LT Active 09/06/2011 DARE[facility] [place] Bundle branch block, right Active Problem 10/09/2017 [facility], [facility] GERD (<span ID="[id number]">Confirmed</span>) Resolved Problem 10/09/2017 [facility], DAREK [place],[facility] Acid reflux Active Problem 10/09/2017 [facility] Hiatal hernia Resolved Problem 10/09/2017 [facility], DAREK [place],[facility] Ayush,[facility] High cholesterol Resolved Problem 10/09/2017 [facility] [place],[facility] [address],[facility] [place],[facility] History of gastric ulcer Resolved Problem 10/09/2017 [facility] [place], OPID [place],[facility] [place],[facility] HTN (<span ID="[id number]">Confirmed</span>) Resolved Problem 10/09/2017 [facility] [place], [facility] [place],[facility] Hypertension Active Problem 10/09/2017 [facility] [place] Morbid obesity Resolved Problem 10/09/2017 [facility] [place],[facility] [address],[facility] [place],[facility] Rheumatoid arthritis Resolved Problem 10/09/2017 [facility] [place],[facility] [address],[facility] [place],[facility] Final: Gastric ulcer, unspecified as acute or chronic, without hemorrhage or perforation 05/17/2015 [facility] Final: Encounter for screening for malignant neoplasm of colon 05/17/2015 [facility] Final: Right upper quadrant pain 04/02/2015 [facility] Chronic pain syndrome Active Problem 01/10/2018 Stephan Kearneyer Morbid obesity due to excess calories Active Problem 01/10/2018 Stephan Post long term use 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 Active Problem 01/10/2018 [...] right knee Active Problem 01/10/2018 Stephan Post Arthralgia of knee, right Active Problem 09/10/2018 Enayet Raousmanem Primary osteoarthritis, unspecified site Active Problem 09/10/2018 Enmarcos Richards Essential hypertension Active Problem 09/10/2018 Melvina Richards,[id number] Anxiety disorder, unspecified Active Problem 09/10/2018 Enmarcos Richards Major depressive disorder, single episode, unspecified Active Problem 09/10/2018 Enldet Evelynm Intractable cyclical vomiting with nausea Active Problem 09/10/2018 Enldet Raousmanem Nausea Active Problem 09/10/2018 Enldet Evelynm Other dietary vitamin B12 deficiency anemia Active Problem 09/10/2018 Enmarcos Rivasm Primary insomnia Active Problem 09/10/2018 Enmarcos Richards Fatigue, unspecified type Active Problem 09/10/2018 Enmarcos Rivasm Dehydration Active Diagnosis 11/16/2016 Enldet Evelynm Anxiety Active Diagnosis 09/10/2018 Melvina Richards,[id number] S/P bariatric surgery Active Problem 09/10/2018 Melvina Richards Dizziness and giddiness Active Diagnosis 10/11/2016 Melvina Richards Volume depletion Active Diagnosis 10/11/2016 Melvina Rivasm Muscle spasm Active Diagnosis 01/09/2017 Stephan Post Cardiac murmur Active Diagnosis 08/03/2017 Enmarcos Richards Acute pain of left knee Active Diagnosis 01/26/2017 Enmarcos Baezousmanem Preoperative clearance Active Diagnosis 01/26/2017 Melvina Richards Fall, subsequent encounter Active Diagnosis 01/26/2017 Enmarcos Richards Primary osteoarthritis, right hand Active Problem 09/10/2018 Enldet Evelynm Primary osteoarthritis of left hand Active Problem 09/10/2018 Melvina Rivasm Primary osteoarthritis involving multiple joints Active Problem 09/10/2018 Enmarcos Rivasm Polyarthralgia Active Problem 01/10/2018 Stephan Post Heart murmur Active Diagnosis 03/21/2018 Enldet Evelynm Intractable migraine without aura and without status migrainosus Active Problem 09/10/2018 Enldet Evelynm Acute sinusitis with symptoms > 10 days Active Diagnosis 09/10/2018 Enldet Evelynm Nonintractable episodic headache, unspecified headache type Active Diagnosis 09/10/2018 Enmarcos Rivasm Bilateral lower extremity edema Active Diagnosis 03/24/2016 Enldet Evelynm Chronic pain Active Diagnosis 02/17/2016 [id number] Arthritis of both knees Active Diagnosis 02/17/2016 [id number] Pure hypercholesterolemia Active Problem 02/17/2016 [id number] Encounter for general adult medical examination without abnormal findings Active Diagnosis 02/17/2016 [id number] Panic disorder Active Problem 02/17/2016 [id number] Pre-operative clearance Active Diagnosis 04/25/2016 Melvina Richards Hx of bariatric surgery Active Diagnosis 07/20/2016 Melvina Richards Iron deficiency anemia, unspecified iron deficiency anemia type Active Diagnosis 07/20/2016 Melvina Richards Non-intractable vomiting with nausea, unspecified vomiting type Active Diagnosis 07/20/2016 Melvina Richards Hot flashes Active Diagnosis 09/01/2016 Melvina Richards PERNICIOUS ANEMIA Active [facility] STOMACH ULCER NOS Active [facility] ESOPHAGEAL REFLUX Active [facility] STOMACH ULCER NOS-OBSTR Active [facility] RIGHT UPPER QUADRANT PAIN Active [facility] CHEST PAIN NOS Active [facility] SHORTNESS OF BREATH Active [facility] ABNORM ELECTROCARDIOGRAM Active [facility] KNEE PAIN O/A Active [facility] [place] GASTROPARESIS Active [facility] ABDOMINAL DISTENSION (GASEOUS) Active [facility] MORBID (SEVERE) OBESITY DUE TO EXCESS CA Active [facility] GASTRIC ULCER, UNSP ACUTE OR CHRONIC, Active [facility] ENCOUNTER FOR SCREENING FOR MALIGNANT NE Active [facility] OBESITY; OA OF KNEE /AQUATIC Active [facility] OBESITY, OA OF KNEE Active [facility] JORGE KNEE DJD Active [facility] UNILATERAL PRIMARY OSTEOARTHRITIS, RIGHT Active [facility] ABNORMAL ELECTROCARDIOGRAM [ECG] [EKG] Active [facility] Medications Medication Details Route Status Patient Instructions Ordering Provider Order Date Source Levaquin 1 tablet Orally Active 500 MG Orally Once a day Jamaal 09/03/2018 Melvina Richards Promethazine HCl 1 tablet as needed Orally Active 12.5 MG Orally every 12 hrs as needed for nausea during migraine headache Jamaal 03/29/2018 Melvina Richards Naproxen 1 tablet with food or milk as needed Orally Active 500 MG Orally every 12 hrs Sienna 01/09/2018 Stephan Post Medrol Dose Rahul as directed Orally Active 4mg Orally once a day Sienna 01/04/2018 Stephan Post Acetaminophen-Codeine #3 1 tablet as needed Orally Active 300- 30 MG Orally daily Sienna 01/04/2018 Stephan Pots [place] 1 tablet as needed Orally Active 10-325 MG Orally BID [facility] 12/05/2017 Stephan Post Trazodone HCl 1 tablet at bedtime as needed Orally Active 50 MG Orally Once a day [facility] 11/13/2017 Enayet Rahim PredniSONE 1 tablet Orally Active 20 MG Orally Once a day [facility] 11/13/2017 Enayet Rahim Voltaren 2 grams to affected area as needed Transdermal Active 1 % Transdermal QID [facility] 11/09/2017 Stephan Post Tramadol HCl 1 tablet as needed Orally Active 50 MG Orally TID [facility] 11/05/2017 Stephan Post Medrol Dose Rahul as directed Orally Active 4mg Orally once a day [facility] 10/22/2017 Stephan Post Diclofenac Sodium as directed Transdermal Active 1 % Transdermal bid prn [facility] 09/28/2017 Enayet Rahim Tramadol HCl 1 tablet as needed Orally Active 50 MG Orally every 6 hrs PRN [facility] 08/10/2017 Stephan Post Alprazolam 1 tab in am and half at bedtime Orally Active 0.25 MG Orally bid prn [facility] 05/04/2017 Enldet Raousmanem Keflex 1 capsule Orally Active 500 MG Orally every 12 hrs [facility] 01/29/2017 Melvina Raousmanem Ketorolac Tromethamine 1 tablet with food or milk as needed Orally Active 10 MG Orally Twice a day [facility] 01/22/2017 Stephan Post Tramadol HCl 1 tablet as needed Orally Active 50 MG Orally every 6 hrs PRN [facility] 01/22/2017 Stephan Post Ketorolac Tromethamine 1 tablet with food or milk as needed Orally Active 10 MG Orally Twice a day [facility] 01/22/2017 Stephan Post Robaxin-750 1 tablet Orally Active 750 MG Orally every 8 hrs PRN [facility] 12/29/2016 Stephan Post Robaxin-750 1 tablet Orally Active 750 MG Orally TID [facility] 12/06/2016 Stephan Post Celexa 1 tablet Orally Active 20 MG Orally Once a day [facility] 11/14/2016 Melvina Richards Keflex 1 capsule Orally Active 250 MG Orally twice a day (bid) [facility] 11/14/2016 Melvina Richards Alprazolam 1 tablet Orally Active 0.25 MG Orally once a day as needed for panic attack [facility] 11/14/2016 Melvina Richards Ondansetron 1 tablet on the tongue and allow to dissolve Orally Active 4 MG Orally every 8 hrs [facility] 11/06/2016 Stephan Post Diazepam half tablet Orally Active 5 MG Orally prn [facility] 11/06/2016 Stephan Post Flexeril TAKE 1 TABLET BY MOUTH AT BEDTIME NEEDED NA Active 10 MG [facility] 11/06/2016 Stephan Post Calcium Chloride 0.0014 MEQ/ML / Potassium Chloride 0.004 MEQ/ML / Sodium Chloride 0.103 MEQ/ML / Sodium Lactate 0.028 MEQ/ML Injectable Solution 1,000 mL, 1,000 ml/hr, Infuse Over: 1 hr, Route: IV, ONCE, Priority: STAT, Dosing Weight 67.273 kg, Start date: 10/10/16 12:56:00 CDT, Duration: 1 doses or times, Stop date: 10/10/16 12:56:00 CDT Inactive 10/10/2016 [facility] potassium chloride 20 mEq oral tablet, extended release 20 mEq, 1 tab, Route: PO, Drug form: ERTAB, ONCE, Dosing Weight 67.273, kg, Priority: STAT, Start date: 10/10/16 11:42:00 CDT, Stop date: 10/10/16 11:42:00 CDTNotes: (Same as: K-Dur 20) "Do Not Crush" With food and full glass of water Inactive 10/10/2016 [facility] Lactated Ringers 1,000 mL 1,000 mL, Rate: 2,000 ml/hr, Infuse over: 0.5 hr, Route: IV, Dosing Weight 67.273 kg, Total Volume: 1,000, Start date: 10/10/16 11:41:00 CDT, Duration: 1 doses or times, Stop date: 10/10/16 12:10:00 CDT Inactive 10/10/2016 [facility] Sodium Chloride 0.154 MEQ/ML Injectable Solution 1,000 mL, 1,000 ml/hr, Infuse Over: 1 hr, Route: IV, 1,000, Drug form: INJ, ONCE, Priority: STAT, Dosing Weight 67.273 kg, Start date: 10/10/16 10:44:00 CDT, Duration: 1 doses or times, Stop date: 10/10/16 10:44:00 CDT Inactive 10/10/2016 [facility] Saline Flush 0.9% 10 mL, Route: IVP, Drug Form: INJ, Dosing Weight 67.273, kg, PRN, PRN Line Flush, Start date: 10/10/16 10:37:00 CDT, Duration: 30 day, Stop date: 11/09/16 10:36:00 CDTNotes: (Same as: BD Posiflush) Inactive 10/10/2016 [facility] Flexeril 10 mg 30 one tablet orally Active 10 mg orally bedtime prn Sienna 10/09/2016 Stephan Post Valium 0 Refill(s) Active 09/08/2016 [facility] Xanax 1 tablet Orally Active 0.25 MG Orally daily prn anxiety [facility] 09/04/2016 [facility] Zofran ODT 1 tablet on the tongue and allow to dissolve Orally Active 4 MG Orally three times a day (tid) as needed (prn) [facility]/04[facility] 1 tablet as needed Orally Active 10 MG Orally twice a day (bid) [facility] 09/04/2016 [facility] Gabapentin 2 capsule Orally Active 100 MG Orally once every night [facility] 08/29/2016 Ze[facility] Venlafaxine HCl 1 tablet with food Orally Active 25 MG Orally daily [facility] 08/29/2016 [facility] Diazepam 1 tablet as needed Orally Active 10 MG Orally once every night [facility] 08/07/2016 Zechar[facility] Cyanocobalamin as directed Sublingual Active 2500 MCG Sublingual Once a day [facility] 07/19/2016 [facility] Cyanocobalamin 1 tablet under the tongue and allow to dissolve Sublingual Active 1000 MCG Sublingual Once a day [facility] 07/10/2016 [facility] Ferrous Sulfate 5 ml Orally Active 220 (44 Fe) MG/5ML Orally Twice a day [facility] 07/10/2016 Melvina Richards Cyanocobalamin 1 tablet under the tongue and allow to dissolve Sublingual Active 1000 MCG Sublingual Once a day [facility] 07/10/2016 Melvina Richards Ferrous Sulfate 5 ml Orally Active 220 (44 Fe) MG/5ML Orally Twice a day [facility] 07/10/2016 Melvina Richards Ibuprofen 1 tablet Orally Active 800 MG Orally Three times a day (drink plenty of water) [facility] 06/27/2016 Melvina Baeznejorge Ketorolac Tromethamine 1 tablet as needed Orally Active 10 MG Orally every 6 hrs [facility] 06/23/2016 [facility] rivaroxaban 10 mg oral tablet 10 mg=1 tab, PO, Q24H, # 10 tab, 0 Refill(s) Active 05/31/2016 [facility] Streptococcus pneumoniae serotype 1 capsular antigen diphtheria [id number] protein conjugate vaccine / Streptococcus pneumoniae serotype 14 capsular antigen diphtheria [id number] protein conjugate vaccine / Streptococcus pneumoniae serotype 18C capsular antigen d 0.5 mL, Route: IM, Drug Form: INJ, Daily, Start date: 05/30/16 9:00:00 HEADING AND PRIMING OPERATOR, Duration: 1 doses or times, Stop date: 05/30/16 9:00:00 CSTNotes: Lightly roll vial (DO NOT SHAKE) before administration. (Same as: Prevnar 13) Inactive 05/30/2016 [facility] Xarelto 10 mg, Route: PO, Daily, Dosing Weight 80.653, kg, Start date: 05/30/16 9:00:00 HEADING AND PRIMING OPERATOR, Duration: 30 day, Stop date: 06/28/16 9:00:00 HEADING AND PRIMING OPERATOR No Longer Active 05/30/2016 [facility] Prilosec 40 mg, Route: PO, Daily, Dosing Weight 80.653, kg, Start date: 05/30/16 9:00:00 HEADING AND PRIMING OPERATOR, Duration: 30 day, Stop date: 06/28/16 9:00:00 HEADING AND PRIMING OPERATOR No Longer Active 05/30/2016 [facility] Furosemide 20 MG Oral Tablet 20 mg, 1 tab, Route: PO, Drug form: TAB, Daily, Dosing Weight 80.653, kg, Start date: 05/30/16 9:00:00 HEADING AND PRIMING OPERATOR, Duration: 30 day, Stop date: 06/28/16 9:00:00 CSTNotes: (Same as: Lasix) May cause GI upset. Give with food or milk. No Longer Active 05/30/2016 [facility] Acetaminophen 325 MG / Hydrocodone Bitartrate 10 MG Oral Tablet [[place] 10/325] 1 tab, Route: PO, Drug Form: TAB, Dosing Weight 80.653, kg, Q4H, PRN Pain Score 6-10, Start date: 05/30/16 8:18:00 HEADING AND PRIMING OPERATOR, Duration: 30 day, Stop date: 06/29/16 8:17:00 CSTNotes: Do not exceed 4gm/day of acetaminophen. (Same as: [place] 325/10) No Longer Active 05/30/2016 [facility] ketOROLAC 15 mg/mL injectable solution 15 mg, 1 mL, Route: IVP, Drug form: INJ, Daily, Dosing Weight 80.653, kg, PRN Pain Score 6-10, Start date: 05/30/16 7:43:00 HEADING AND PRIMING OPERATOR, Duration: 4 day, Stop date: 06/03/16 7:42:00 HEADING AND PRIMING OPERATOR No Longer Active 05/30/2016 [facility] atorvastatin 20 mg, 2 tab, Route: PO, Drug form: TAB, Bedtime, Dosing Weight 80.653, kg, Start date: 05/29/16 21:00:00 HEADING AND PRIMING OPERATOR, Duration: 30 day, Stop date: 06/27/16 21:00:00 CSTNotes: (Same As: Lipitor) No Longer Active 05/30/2016 [facility] Docusate Sodium 100 MG Oral Capsule 100 mg, 1 cap, Route: PO, Drug form: CAP, BID, Dosing Weight 80.653, kg, Start date: 05/29/16 17:00:00 HEADING AND PRIMING OPERATOR, Duration: 30 day, Stop date: 06/28/16 9:00:00 CSTNotes: (Same as: Colace) (Do Not Crush) No Longer Active 05/29/2016 [facility] Protonix 40 mg, 1 tab, Route: PO, Drug form: ECTAB, Before Dinner, Start date: 05/29/16 16:30:00 HEADING AND PRIMING OPERATOR, Duration: 30 day, Stop date: 06/27/16 16:30:00 CSTNotes: Tablet should not be chewed or crushed. (Same as: Protonix) No Longer Active 05/29/2016 [facility] ceFAZolin (SCIP) 1 gm, 100 mL, Route: IVPB, Drug form: INJ, Q8H, Dosing Weight 80.653, kg, Start date: 05/29/16 16:00:00 HEADING AND PRIMING OPERATOR, Duration: 1 doses or times, Stop date: 05/29/16 16:00:00 HEADING AND PRIMING OPERATOR Inactive 05/29/2016 [facility] rivaroxaban 10 mg, 1 tab, Route: PO, Drug form: TAB, Q24H, Dosing Weight 80.653, kg, Start date: 05/29/16 15:45:00 HEADING AND PRIMING OPERATOR, Duration: 30 day, Stop date: 06/27/16 15:45:00 CSTNotes: (Same as: Xarelto) Do Not Crush No Longer Active 05/29/2016 [facility] K-Dur 20 40 mEq, 2 tab, Route: PO, Drug form: ERTAB, ONCE, Dosing Weight 80.653, kg, Start date: 05/29/16 15:00:00 HEADING AND PRIMING OPERATOR, Stop date: 05/29/16 15:00:00 CSTNotes: (Same as: K-Dur 20) "Do Not Crush" With food and full glass of water Inactive 05/29/2016 [facility] Tramadol 50 mg, 1 tab, Route: PO, Drug form: TAB, Q4H, Dosing Weight 80.653, kg, PRN Pain Score 1-3, Start date: 05/29/16 9:50:00 HEADING AND PRIMING OPERATOR, Duration: 30 day, Stop date: 06/28/16 9:49:00 HEADING AND PRIMING OPERATOR, ..Notes: Not to exceed 400mg/day. (Same As: Ultram) No Longer Active 05/29/2016 [facility] Acetaminophen 325 MG / Hydrocodone Bitartrate 7.5 MG Oral Tablet [[place] 7.5/325] 1 tab, Route: PO, Drug Form: TAB, Dosing Weight 80.653, kg, Q4H, PRN Pain Score 4-6, Start date: 05/29/16 9:47:00 HEADING AND PRIMING OPERATOR, Duration: 30 day, Stop date: 06/28/16 9:46:00 CSTNotes: Same as [place] 325-7.5mg Do not exceed 4gm/day of acetaminophen. No Longer Active 05/29/2016 [facility] Dulcolax Laxative 5 mg, 1 tab, Route: PO, Drug form: ECTAB, Q24H, Dosing Weight 80.653, kg, PRN Constipation, Start date: 05/29/16 9:47:00 HEADING AND PRIMING OPERATOR, Duration: 30 day, Stop date: 06/28/16 9:46:00 CSTNotes: (Same As: Dulcolax, Correctol) (Do Not Crush) "Do Not Crush" No Longer Active 05/29/2016 [facility] Al hydroxide/Mg hydroxide/simethicone 200 mg-200 mg-20 mg/5 mL oral suspension 30 ml, Route: PO, Drug Form: SUSP, Dosing Weight 80.653, kg, Q4H, PRN Indigestion, Start date: 05/29/16 9:47:00 HEADING AND PRIMING OPERATOR, Duration: 30 day, Stop date: 06/28/16 9:46:00 CSTNotes: (aluminum hydroxide-magnesium hyd- simethicone [phone]/5ml 30 ml ud LUIS ENRIQUE) No Longer Active 05/29/2016 [facility] Acetaminophen 650 mg, 2 tab, Route: PO, Drug form: TAB, Q4H, Dosing Weight 80.653, kg, PRN Pain 1-3/Temp > 100.4 F, Start date: 05/29/16 9:47:00 HEADING AND PRIMING OPERATOR, Duration: 30 day, Stop date: 06/28/16 9:46:00 CSTNotes: Do not exceed 4 gm/day. (Same as: Tylenol) No Longer Active 05/29/2016 [facility] Hydromorphone 0.5 mg, 0.5 mL, Route: IVP, Drug form: INJ, Q3H, Dosing Weight 80.653, kg, PRN Pain Score 7-10, Start date: 05/29/16 9:47:00 HEADING AND PRIMING OPERATOR, Duration: 30 day, Stop date: 06/28/16 9:46:00 HEADING AND PRIMING OPERATOR No Longer Active 05/29/2016 [facility] Lactated Ringers 1,000 mL 1,000 mL, Rate: 100 ml/hr, Infuse over: 10 hr, Route: IV, Dosing Weight 80.653 kg, Total Volume: 1,000, Start date: 05/29/16 9:47:00 HEADING AND PRIMING OPERATOR, Duration: 30 day, Stop date: 06/28/16 9:46:00 HEADING AND PRIMING OPERATOR No Longer Active 05/29/2016 [facility] Ondansetron 4 mg, 2 mL, Route: IVP, Drug form: INJ, Q8H, Dosing Weight 80.653, kg, PRN Nausea & Vomiting, Start date: 05/29/16 9:47:00 HEADING AND PRIMING OPERATOR, Duration: 30 day, Stop date: 06/28/16 9:46:00 CSTNotes: (Same as: Zoan) MEDICATION WASTE Product Size: 4 mg Product Wasted: ___ mg No Longer Active 05/29/2016 [facility] hydromorphone (ANES) Route: IV, Drug form: INJ, ONCE, Stop date: 05/29/16 9:41:00 HEADING AND PRIMING OPERATOR Inactive 05/29/2016 [facility] tranexamic acid (ANES) Route: IV, Drug form: INJ, ONCE, Stop date: 05/29/16 9:26:00 HEADING AND PRIMING OPERATOR Inactive 05/29/2016 [facility] fentaNYL (ANES) Route: IV, Drug form: INJ, ONCE, Stop date: 05/29/16 8:51:00 HEADING AND PRIMING OPERATOR Inactive 05/29/2016 [facility] famotidine (ANES) Route: IV, Drug form: INJ, ONCE, Stop date: 05/29/16 8:41:00 HEADING AND PRIMING OPERATOR Inactive 05/29/2016 [facility] ceFAZolin (ANES) Route: IV, Drug form: INJ, ONCE, Stop date: 05/29/16 8:36:00 HEADING AND PRIMING OPERATOR Inactive 05/29/2016 [facility] lidocaine (ANES) Route: IV, Drug form: INJ, ONCE, Stop date: 05/29/16 8:36:00 HEADING AND PRIMING OPERATOR Inactive 05/29/2016 [facility] propofol (ANES) Route: IV, Drug form: INJ, ONCE, Stop date: 05/29/16 8:36:00 HEADING AND PRIMING OPERATOR Inactive 05/29/2016 [facility] midazolam (ANES) Route: IV, Drug form: SOLN, ONCE, Stop date: 05/29/16 8:31:00 HEADING AND PRIMING OPERATOR Inactive 05/29/2016 [facility] ondansetron (ANES) Route: IV, Drug form: INJ, ONCE, Stop date: 05/29/16 8:31:00 HEADING AND PRIMING OPERATOR Inactive 05/29/2016 [facility] LR 1000 mL INJ (ANES) Route: IV, Total Volume: 1,000, Start date: 05/29/16 7:41:00 HEADING AND PRIMING OPERATOR, Stop date: 05/29/16 8:41:00 HEADING AND PRIMING OPERATOR Inactive 05/29/2016 [facility] Calcium Chloride 0.0014 MEQ/ML / Potassium Chloride 0.004 MEQ/ML / Sodium Chloride 0.103 MEQ/ML / Sodium Lactate 0.028 MEQ/ML Injectable Solution 1,000 mL, Rate: 25 ml/hr, Infuse over: 40 hr, Route: IV, Dosing Weight 80.653 kg, Total Volume: 1,000, Start date: 05/29/16 6:24:00 HEADING AND PRIMING OPERATOR, Duration: 1 day, Stop date: 05/30/16 6:23:00 HEADING AND PRIMING OPERATOR Inactive 05/29/2016 [facility] Furosemide 20 MG Oral Tablet 20 mg=1 tab, PO, Daily, # 30 tab, 0 Refill(s) Active 05/16/2016 [facility] Acetaminophen 325 MG / Hydrocodone Bitartrate 10 MG Oral Tablet 1 tab, PO, Q6H, PRN Pain, # 20 tab, 0 Refill(s) Active 05/16/2016 [facility] Aspirin 81 MG Chewable Tablet 81 mg=1 tab, PO, Daily, tab, 0 Refill(s) Active 05/16/2016 [facility] Prilosec 40 mg, PO, Daily, 0 Refill(s) Active 05/16/2016 [facility] Ketorolac Tromethamine 1 tablet as needed Orally Active 10 MG Orally every 6 hrs [facility] 04/21/2016 [facility] Atorvastatin Calcium 1 tablet Orally Active 20 MG Orally once every night [facility] 04/03/2016 [facility] Medical Compression Stockings as directed as directed Active as directed daily [facility] 03/22/2016 [facility] Medical Compression Stockings as directed as directed Active as directed daily [facility] 03/22/2016 [facility] Potassium Chloride [facility] 1 tablet with food Orally Active 10 MEQ Orally Once a day [facility] 03/22/2016 [facility] Calcium Chloride 0.0014 MEQ/ML / Potassium Chloride 0.004 MEQ/ML / Sodium Chloride 0.103 MEQ/ML / Sodium Lactate 0.028 MEQ/ML Injectable Solution 1,000 mL, Rate: 25 ml/hr, Infuse over: 40 hr, Route: IV, Dosing Weight 128.182 kg, Total Volume: 1,000, Start date: 03/08/15 8:58:00, Duration: 30 day, Stop date: 04/07/15 8:57:00 Inactive 03/08/2015 [facility] Vitamin D3 0 Refill(s) Active 03/05/2015 [facility] Vitamin C 0 Refill(s) Active 03/05/2015 [facility] Vitamin E PO, Daily, 0 Refill(s) Active 03/05/2015 [facility] quinapril PO, Daily, 0 Refill(s) Active 03/05/2015 [facility] Dexilant PO, Daily, 0 Refill(s) Active 03/05/2015 [facility] Esomeprazole 40 MG Enteric Coated Capsule [Nexium] 40 mg=1 cap, PO, Daily, # 30 cap, 1 Refill(s) Active 12/30/2014 [facility] Omeprazole 40 MG Enteric Coated Capsule [Prilosec] 40 mg=1 cap, PO, Daily, # 30 cap, 0 Refill(s) Active 12/30/2014 [facility] Dulcolax Laxative =1 supp, LA, Daily, PRN constipation, # 5 supp, 0 Refill(s) Active 12/30/2014 [facility] atorvastatin 20 mg oral tablet 20 mg=1 tab, PO, Bedtime, # 30 tab, 0 Refill(s) Active 12/30/2014 [facility] Hydrocodone Bitartrate 5 MG / Ibuprofen 200 MG Oral Tablet 1 tab, PO, Q4H, PRN for pain, 0 Refill(s) Active 12/30/2014 [facility] Aspirin 325 MG Oral Tablet 325 mg=1 tab, PO, Q4H, PRN Fever, # 60 tab, 0 Refill(s) Active 12/30/2014 [facility] metoprolol 25 mg oral tablet, extended release 25 mg=1 tab, PO, Daily, # 30 tab, 0 Refill(s) Active 12/30/2014 [facility] Sodium Chloride 0.154 MEQ/ML Injectable Solution 1,000 mL, Rate: 25 ml/hr, Infuse over: 40 hr, Route: IV, Total Volume: 1,000, Start date: 12/30/14 8:17:00, Duration: 30 day, Stop date: 01/29/15 8:16:00 Inactive 12/30/2014 [facility] Quinapril HCl 1tab TID PRN #120 NRF Orally Active 40 MG Orally Once a day [facility] Stephan Post Omeprazole 1 capsule Orally Active 40 MG Orally Once a day [facility] Post Metoprolol & Diet Manage Prod as directed Orally Active 50 MG Orally [facility] Stephan Post [place] 1 tablet as needed Orally Active 10-325 MG Orally QID [facility] Stephan Post,[id number] Diclofenac Sodium 2g Transdermal Active 1 % Transdermal Four times a day [facility] Setphan Post Vitamin B-12 not defined Orally Active Orally once a month [facility] Post Aspirin not defined NA Active [facility] Furosemide 1 tablet Orally Active 20 MG Orally Twice a day [facility] Hydrocodone-Acetaminophen 1 tablet as needed Orally Active 5- 325 MG Orally every 6 hrs [facility] Atorvastatin Calcium 1 tablet Orally Active 20 MG Orally once every night [facility] Quin[facility] 1 tablet Orally Active 20 MG Orally Once a day [facility] Ondansetron 1 tablet on the tongue and allow to dissolve Orally Active 4 MG Orally every 8 hrs [facility] Post Diazepam half tablet Orally Active 5 MG Orally prn [facility] Post Citalopram Hydrobromide 1 tablet Orally Active 40 mg Orally Once a day [facility] Quinap[facility] HCl 1 tablet Orally Active 20 MG Orally Once a day as needed [facility] Rahi Calcium not defined NA Active [facility] Hydrocodone-Acetaminophen 1 tablet Orally Active 10-325 MG Orally As needed [facility] Celexa 1 tablet Orally Active 20 MG Orally Once a day [facility] Hydrocodone-Acetaminophen 1 tablet as needed Orally Active 10- 325 MG Orally every 6 hrs [facility] Ketorolac Tromethamine not defined NA Active [facility] Citalopram Hydrobromide 1 tablet Orally Active 20 MG Orally Once a day [facility] Tramadol HCl 1 tablet as needed Orally Active 50 MG Orally every 6 hrs [facility] Vitamin B-12 not defined Orally Active Orally once a month Sienna [facility] Post Quinapril HCl 1tab TID PRN #120 NRF Orally Active 40 MG Orally Once a day [facility] Stephan Post Omeprazole 1 capsule Orally Active 40 MG Orally Once a day S[facility] [place] 1 tablet as needed Orally Active 10-325 MG Orally QID [facility] Post Tramadol HCl 1 tablet as needed Orally Active 50 MG Orally every 6 hrs Stephan Lopez Tramadol one tab orally Active 50 mg orally every 4-6 hours prn pain [facility] Post Quinapril HCl 1 tablet Orally Active 20 MG Orally Once a day [facility] Citalopram Hydrobromide 1 tablet Orally Active 40 mg Orally Once a day [facility] Prometh[facility] HCl 1 tablet as needed Orally Active 12.5 MG Orally [facility] Naproxen 1 tablet with food or milk Orally Active 500 MG Orally tid as needed [facility] Trazodone HCl 1 tablet at bedtime as needed Orally Active 50 Orally Once a day [facility] Diazepam 1 tablet as needed Orally Active 10 MG Orally twice a day (bid) Jamaal Melvina Rivas,[id number] Amitriptyline HCl 1 tablet Orally No Longer Active 25 MG Orally Once a day Jam [id number] Promethazine HCl 1 suppository as needed Rectal Active 25 MG Rectal every four to six hours Jam [id number] Fluoxetine 1 capsule in the morning Orally Active 10 MG Orally Once a day Jam [id number] Quinapril HCl 1 tablet Orally Active 10 mg Orally Once a day prn Jam [id number] Atorvastatin Calcium 1 tablet Orally No Longer Active 40 MG Orally Once a day Jam [id number] MiraLax 1 packet mixed with 8 ounces of fluid Orally Active Orally Once a day Jam [id number] Allergies, Adverse Reactions, Alerts Substance Category Reaction [...] Reaction Info Not Available Adverse Reaction Active 09/03/2018 Enayet Rahim Morphine Sulfate Adverse Reaction Info Not Available Adverse Reaction Active 09/03/2018 Enayet Rahim Iodine Adverse Reaction Info Not Available Adverse Reaction Active 09/03/2018 Enayet Raousmanem Trazadone Adverse Reaction Info Not Available Adverse Reaction Active 09/03/2018 Enaydieter Rivasm Cough Syrup Assertion Drug allergy Active [facility] iodine Assertion Drug allergy Active [facility] iodine topical Assertion Drug allergy Active [facility] codeine Assertion Drug allergy Active [facility] morphine Assertion Drug allergy Active [facility] Immunizations Immunization Date Given Site Status Last Updated Comments Source B 12 Vit Inj 07/19/2016 completed Melvina Richards B-12 Do Not Use 07/10/2016 completed Melvina Richards pneumococcal 13-valent vaccine 05/30/2016 Left Deltoid completed Poli [facility] [place] Influenza 04/10/2016 completed Melvina Richards Results Order Name Results Value Reference Range Date Interpretation Comments Source Cardiac SPECT multi studies NM Cardiac SPECT multi studies NM Nuclear gated myocardial perfusion scan performed as per protocol at the nuclear medicine lab at [address] [place] [address]. Scan injected 0.4 mg intravenously as a stress agent. Cardiolite injected 10 mCi for resting protocol and 30 mCi for stress protocol. Impression. No evidence of ischemia or scar noted. Left ventricular ejection fraction 60%. Normal study. 07/03/2017 - - Read by: Yisel Kaufman MD Dictated Date/time: 07/06/17 15:03 Electronically Signed by: Yisel Kaufman MD 07/06/17 15:04 FINAL REPORT [facility] CARDIAC ENZYMES CK MB Index null 0.0 - 2.5 10/10/2016 [facility] CARDIAC ENZYMES Troponin-I null 0.00 - 0.40 10/10/2016 [facility] CARDIAC ENZYMES CK MB null 0.5 - 3.6 10/10/2016 [facility] CARDIAC ENZYMES Total CK 24 unit/L 12 - 191 10/10/2016 [facility] CHEM PANEL Phosphorus 3.2 mg/dL 2.5 - 4.5 10/10/2016 [facility] CHEM PANEL eGFR 103 mL/min/1.73m2 10/10/2016 [...] should be multiplied by the estimated BMI. [facility] CHEM PANEL A/G Ratio 1.0 0.7 - 1.6 10/10/2016 [facility] CHEM PANEL Bili Total 0.6 mg/dL 0.2 - 1.3 10/10/2016 [facility] CHEM PANEL AGAP 12.4 meq/L 10.0 - 20.0 10/10/2016 [facility] CHEM PANEL B/C Ratio 12 6 - 25 10/10/2016 [facility] CHEM PANEL Globulin 2.2 g/dL 2.7 - 4.2 10/10/2016 [facility] CHEM PANEL Creatinine Lvl 0.48 mg/dL 0.50 - 1.40 10/10/2016 [facility] CHEM PANEL Sodium Lvl 144 meq/L 135 - 145 10/10/2016 [facility] CHEM PANEL Potassium Lvl 3.4 meq/L 3.5 - 5.1 10/10/2016 [facility] CHEM PANEL Chloride Lvl 111 meq/L 95 - 109 10/10/2016 [facility] CHEM PANEL CO2 24 meq/L 24 - 32 10/10/2016 [facility] CHEM PANEL Total Protein 4.5 g/dL 6.4 - 8.4 10/10/2016 [facility] CHEM PANEL Calcium Lvl 7.9 mg/dL 8.5 - 10.5 10/10/2016 [facility] CHEM PANEL BUN 6 mg/dL 7 - 22 10/10/2016 [facility] CHEM PANEL Glucose Lvl 75 mg/dL 70 - 99 10/10/2016 [facility] CHEM PANEL ALT 44 unit/L 0 - 65 10/10/2016 [facility] CHEM PANEL Albumin Lvl 2.3 g/dL 3.5 - 5.0 10/10/2016 [facility] CHEM PANEL AST 45 unit/L 0 - 37 10/10/2016 [facility] CHEM PANEL Alk Phos 87 unit/L 39 - 136 10/10/2016 [facility] CHEM PANEL Magnesium Lvl 2.0 mg/dL 1.8 - 2.4 10/10/2016 [facility] HEMATOLOGY Macrocyte 2+ *ABN* (10/10/16 11:04 AM) None Seen 10/10/2016 [facility] HEMATOLOGY Monocytes # 0.3 K/CMM 0.0 - 0.8 10/10/2016 [facility] HEMATOLOGY Lymphocytes # 0.9 K/CMM 1.0 - 5.5 10/10/2016 [facility] HEMATOLOGY Segs-Bands # 1.4 K/CMM 1.5 - 8.1 10/10/2016 [facility] HEMATOLOGY Eosinophils # 0.1 K/CMM 0.0 - 0.5 10/10/2016 [facility] HEMATOLOGY Monocytes 12.5 % 2.0 - 12.0 10/10/2016 [facility] HEMATOLOGY Lymphocytes 33.2 % 20.0 - 40.0 10/10/2016 [facility] HEMATOLOGY Basophils 0.8 % 0.0 - 1.0 10/10/2016 [facility] HEMATOLOGY Eosinophils 1.9 % 0.0 - 4.0 10/10/2016 [facility] HEMATOLOGY Segs 51.6 % 45.0 - 75.0 10/10/2016 [facility] MCH 35.8 pg 27.0 - 31.0 10/10/2016 [facility] HEMATOLOGY MCV 104.5 fL 80.0 - 98.0 10/10/2016 [facility] HEMATOLOGY Platelet 149 K/CMM 133 - 450 10/10/2016 [facility] HEMATOLOGY MPV 7.3 fL 7.4 - 10.4 10/10/2016 [facility] RDW 14.4 % 11.5 - 14.5 10/10/2016 [facility] HEMATOLOGY MCHC 34.2 g/dL 32.0 - 36.0 10/10/2016 [facility] HEMATOLOGY WBC 2.8 K/CMM 3.7 - 10.4 10/10/2016 [facility] Hct 29.0 % 36.0 - 48.0 10/10/2016 [facility] HEMATOLOGY Hgb 9.9 g/dL 12.0 - 16.0 10/10/2016 [facility] RBC 2.77 M/CMM 4.20 - 5.40 10/10/2016 [facility] ELECTROLYTES Potassium Lvl 3.7 meq/L 3.5 - 5.1 05/31/2016 [facility] Hct 28.9 % 36.0 - 48.0 05/31/2016 [facility] Hgb 9.8 g/dL 12.0 - 16.0 05/31/2016 [facility] Hct 28.7 % 36.0 - 48.0 05/30/2016 [facility] Hgb 9.2 g/dL 12.0 - 16.0 05/30/2016 [facility] BLOOD BANK RESULTS Antibody Scrn Negative (05/29/16 6:03 AM) 05/29/2016 [facility] BLOOD [facility] RESULTS ABO/Rh A POS 05/29/2016 [facility] CHEM PANEL Bili Total 0.6 mg/dL 0.2 - 1.3 05/29/2016 [facility] CHEM PANEL Alk Phos 72 unit/L 39 - 136 05/29/2016 [facility] CHEM PANEL AST 9 unit/L 0 - 37 05/29/2016 [facility] CHEM PANEL eGFR 95 mL/min/1.73m2 05/29/2016 [...] should be multiplied by the estimated BMI. [facility] CHEM PANEL ALT 17 unit/L 0 - 65 05/29/2016 [facility] CHEM PANEL A/G Ratio 1.1 0.7 - 1.6 05/29/2016 [facility] CHEM PANEL Globulin 2.7 g/dL 2.7 - 4.2 05/29/2016 [facility] CHEM PANEL B/C Ratio 16 6 - 25 05/29/2016 [facility] CHEM PANEL Calcium Lvl 8.1 mg/dL 8.5 - 10.5 05/29/2016 [facility] CHEM PANEL Total Protein 5.7 g/dL 6.4 - 8.4 05/29/2016 [facility] CHEM PANEL Albumin Lvl 3.0 g/dL 3.5 - 5.0 05/29/2016 [facility] CHEM PANEL Potassium Lvl 3.0 meq/L 3.5 - 5.1 05/29/2016 Result Comment: Critical Result(s) called to eliud antoine at 05/29/2016 06:47 by tl. Read back OK. [facility] CHEM PANEL Sodium Lvl 143 meq/L 135 - 145 05/29/2016 [facility] CHEM PANEL CO2 28 meq/L 24 - 32 05/29/2016 [facility] CHEM PANEL Chloride Lvl 107 meq/L 95 - 109 05/29/2016 [facility] CHEM PANEL AGAP 11.0 meq/L 10.0 - 20.0 05/29/2016 [facility] CHEM PANEL Creatinine Lvl 0.61 mg/dL 0.50 - 1.40 05/29/2016 [facility] CHEM PANEL BUN 10 mg/dL 7 - 22 05/29/2016 [facility] CHEM PANEL Glucose Lvl 81 mg/dL 70 - 99 05/29/2016 [facility] HEMATOLOGY Eosinophils # 0.1 K/CMM 0.0 - 0.5 05/29/2016 [facility] HEMATOLOGY Monocytes # 0.4 K/CMM 0.0 - 0.8 05/29/2016 [facility] HEMATOLOGY Lymphocytes 32.7 % 20.0 - 40.0 05/29/2016 [facility] HEMATOLOGY Segs 54.4 % 45.0 - 75.0 05/29/2016 [facility] HEMATOLOGY Lymphocytes # 1.2 K/CMM 1.0 - 5.5 05/29/2016 [facility] HEMATOLOGY Segs-Bands # 2.1 K/CMM 1.5 - 8.1 05/29/2016 [facility] Monocytes 9.4 % 2.0 - 12.0 05/29/2016 [facility] HEMATOLOGY Basophils 1.3 % 0.0 - 1.0 05/29/2016 [facility] Eosinophils 2.2 % 0.0 - 4.0 05/29/2016 [facility] MCV 97.6 fL 80.0 - 98.0 05/29/2016 [facility] RDW 13.4 % 11.5 - 14.5 05/29/2016 [facility] MCHC 34.5 g/dL 32.0 - 36.0 05/29/2016 [facility] MCH 33.7 pg 27.0 - 31.0 05/29/2016 [facility] MPV 7.3 fL 7.4 - 10.4 05/29/2016 [facility] Platelet 162 K/CMM 133 - 450 05/29/2016 [facility] Hct 32.4 % 36.0 - 48.0 05/29/2016 [facility] Hgb 11.2 g/dL 12.0 - 16.0 05/29/2016 [facility] RBC 3.32 M/CMM 4.20 - 5.40 05/29/2016 [facility] WBC 3.8 K/CMM 3.7 - 10.4 05/29/2016 [facility] Knee 1-2 Views unilateral DX Knee 1-2 Views unilateral DX Right knee 2 views: Postoperative radiographs show a total knee arthroplasty in good position. Evaluation in the lateral projection is limited by an overlying brace. The osseous structures appear anatomically aligned. Anterior soft tissue gas is noted. [id number] 05/29/2016 - - Read by: Kiko Gomes MD Dictated Date/time: 05/29/16 11:23 Electronically Signed by: Kiko Gomes MD 05/29/16 11:25 FINAL REPORT [facility] BLOOD [facility] RESULTS RBC product Product available 1 (05/16/16 4:45 PM) 05/16/2016 Result Comment: 05/29/2016 07:19 [id number] called to kassandra 05/29/2016 07:19 tb [facility] BLOOD BANK RESULTS Antibody Scrn Negative (05/16/16 1:53 PM) 05/16/2016 [facility] BLOOD BANK RESULTS ABO/Rh A POS 05/16/2016 [facility] PTT 26.7 s 22.9 - 35.8 05/16/2016 [facility] HEMATOLOGY PT 14.0 s 12.0 - 14.7 05/16/2016 [facility] HEMATOLOGY INR 1.06 0.85 - 1.17 05/16/2016 [facility] IMMUNOLOGY HIV 1/2 Ab Negative *NA* (05/16/16 1:53 PM) Negative 05/16/2016 [facility] URINE AND STOOL UA Urobilinogen <=1.0 mg/dL 0.1 - 1.0 05/16/2016 [facility] URINE AND STOOL UA Color Ltyellow 05/16/2016 [facility] URINE AND STOOL UA WBC null 0 - 5 05/16/2016 [facility] URINE AND STOOL UA Sq Epi Occasional /LPF Few /LPF 05/16/2016 [facility] URINE AND STOOL UA RBC 1 /HPF 0 - 2 05/16/2016 [facility] URINE AND STOOL UA Mucus Few /LPF None Seen /LPF 05/16/2016 [facility] URINE AND STOOL UA Hyal Cast 1 /LPF 0 - 2 05/16/2016 [facility] URINE AND STOOL UA Turbidity Clear (05/16/16 1:53 PM) Clear 05/16/2016 [facility] URINE AND STOOL UA Spec Grav 1.010 <=1.030 05/16/2016 [facility] URINE AND STOOL UA Blood Negative (05/16/16 1:53 PM) Negative 05/16/2016 [facility] URINE AND STOOL UA Nitrite Negative (05/16/16 1:53 PM) Negative 05/16/2016 [facility] URINE AND STOOL UA Leuk Est Negative (05/16/16 1:53 PM) Negative 05/16/2016 [facility] URINE AND STOOL UA pH 5.0 5.0 - 8.0 05/16/2016 [facility] URINE AND STOOL UA Protein Negative mg/dL Negative mg/dL 05/16/2016 [facility] URINE AND STOOL UA Glucose Negative mg/dL Negative mg/dL 05/16/2016 [facility] URINE AND STOOL UA Bili Negative *NA* (05/16/16 1:53 PM) Negative 05/16/2016 [facility] URINE AND STOOL UA Ketones Negative mg/dL Negative mg/dL 05/16/2016 [facility] Bone length scanogram DX Bone length [...] compartment osteoarthrosis of the right knee. SL: [id number] 05/16/2016 - - Read by: Khadar Thompson MD Dictated Date/time: 05/16/16 16:41 Electronically Signed by: Khadar Thompson MD 05/16/16 16:43 FINAL REPORT [facility] Knee 3 views DX Knee 3 [...] compartment osteoarthrosis of the right knee. SL: [id number] 05/16/2016 - - Read by: Khadar Thompson MD Dictated Date/time: 05/16/16 16:41 Electronically Signed by: Khadar Thompson MD 05/16/16 16:43 FINAL REPORT [facility] Stomach emptying NM Stomach emptying NM [...] Denver García MD 05/14/15 16:15 FINAL REPORT [facility] Digital Mammo DX Uni MA Digital Mammo DX Uni MA - DIGITAL MAMMO DX UNI MA/R UNILATERAL RIGHT DIGITAL DIAGNOSTIC MAMMOGRAM: 04/20/2015 CLINICAL: Abnormal Mammogram. Comparison is made to exams dated: 03/02/2015 mammogram - [facility], 04/13/2009 mammogram and 04/19/2010 mammogram - [facility]. The tissue of the right breast is [...] the patient. SUMMARY: The staff from the [facility] will contact the patient to schedule the biopsy. A separate report will be issued following the biopsy. Marlon Thakkar M.D. cm/:04/20/2015 15:52:43 Cash Applications Analyst: Lissette MADERA(Marco)(Jorge), [facility] This exam was dictated and interpreted by [id number] for SHINE Nicolas 15. letter sent: Biopsy Mammogram BI-RADS: 4 [...] Danny Suggs MD 03/30/15 15:15 FINAL REPORT [facility] Abdomen RUQ Abdomen RUQ US NAME: ADAL BRANHAM : [...] Malcolm Solares MD 03/08/15 14:16 FINAL REPORT [facility] Digital Mammo Screen Jorge MA w [...] 04/19/2010 mammogram and 04/13/2009 mammogram - [facility]. The tissue of both breasts is almost [...] views are recommended. SUMMARY: The staff from [facility] will contact the patient to schedule the additional studies. A separate report will be issued following interpretation of the additional studies. Marlon Thakkar M.D. cm/penrad:03/19/2015 10:44:52 Cash Applications Analyst: Padmini MADERA(Marco)(Jorge), [facility] This exam was dictated and interpreted by [id number] for SHINE Nicolas, SL 15. letter sent: Additional Imaging Mammogram BI-RADS: 0 Indeterminate 03/02/2015 - - Read by: Gio Teixeira MD Dictated Date/time: 03/19/15 10:44 Electronically Signed by: Gio Teixeira MD 03/19/15 10:44 FINAL REPORT [facility] Cardiac SPECT multi studies NM Cardiac SPECT multi studies NM Nuclear gated myocardial perfusion scan performed as per protocol at nuclear medicine lab at [facility]. This is a Sary scan protocol P. [...] Yisel Kaufman MD 02/04/15 11:48 FINAL REPORT [facility] Abdomen complete US Abdomen complete US ABDOMEN [...] Vital Sign Value Date Comments Source Weight 151 09/03/2018 Enayet Rahim Height 62 09/03/2018 Enayet Rahim Temperature Oral (F) 98.3 F 09/03/2018 Enayet Rahim Diastolic (mm Hg) 84 09/03/2018 Enayet Rahim Systolic (mm Hg) 140 09/03/2018 Enayet Rahim Weight 150 07/10/2018 Enayet Rahim Height 62 07/10/2018 Enayet Rahim Temperature Oral (F) 98.1 F 07/10/2018 Enayet Rahim Diastolic (mm Hg) 67 07/10/2018 Enayet Rahim Systolic (mm Hg) 119 07/10/2018 Enayet Rahim Weight 152 05/10/2018 Enayet Rahim Height 62 05/10/2018 Enayet Rahim Temperature Oral (F) 98.2 F 05/10/2018 Enayet Rahim Diastolic (mm Hg) 75 05/10/2018 Enayet Rahim Systolic (mm Hg) 120 05/10/2018 Enayet Rahim Weight 154.5 03/29/2018 Enayet Rahim Height 62 [...] 07/03/2017 Enayet Rahim BMI Calculated 26.39 07/03/2017 [facility] Weight 65.455 07/03/2017 [facility] Height 157.48 cm 07/03/2017 [facility] Weight 137.5 06/11/2017 [facility] Height [...] [facility] Systolic (mm Hg) 131 10/10/2016 [facility] Diastolic (mm Hg) 79 10/10/2016 [facility] Respitory Rate 14 10/10/2016 [facility] Respitory Rate 16 10/10/2016 [facility] Heart Rate 61 10/10/2016 [facility] Respitory Rate 20 10/10/2016 [facility] Systolic (mm Hg) 125 10/10/2016 [facility] Diastolic (mm Hg) 60 10/10/2016 [facility] Heart Rate 58 10/10/2016 [facility] Systolic (mm Hg) 126 10/10/2016 [facility] Diastolic (mm Hg) 71 10/10/2016 [facility] Weight 67.273 10/10/2016 [facility] Height 157.48 cm 10/10/2016 [facility] BMI Calculated 27.13 10/10/2016 [facility] Temperature Oral (F) 98 F 10/10/2016 [facility] Heart Rate 73 10/10/2016 [facility] Weight 150.2 10/09/2016 Enayet Rahim Height [...] [facility] Systolic (mm Hg) 122 10/09/2016 [facility] Post Respitory Rate 18 09/11/2016 [facility] Systolic (mm Hg) 99 09/11/2016 [facility] Diastolic (mm Hg) 66 09/11/2016 [facility] Weight 73.182 09/08/2016 [facility] Height 157.48 cm 09/08/2016 [facility] BMI Calculated 29.51 09/08/2016 [facility] Weight 164 09/04/2016 Enayet Rahim Height [...] Enayet Rahim Systolic (mm Hg) 129 05/31/2016 [facility] Diastolic (mm Hg) 85 05/31/2016 [facility] Respitory Rate 18 05/31/2016 [facility] Heart Rate 81 05/31/2016 [facility] Temperature Oral (F) 98.1 F 05/31/2016 [facility] Systolic (mm Hg) 149 05/31/2016 [facility] Diastolic (mm Hg) 84 05/31/2016 [facility] Respitory Rate 18 05/31/2016 [facility] Heart Rate 74 05/31/2016 [facility] Temperature Oral (F) 98 F 05/31/2016 [facility] Respitory Rate 18 05/31/2016 [facility] Systolic (mm Hg) 137 05/31/2016 [facility] Diastolic (mm Hg) 87 05/31/2016 [facility] Temperature Oral (F) 98.4 F 05/31/2016 [facility] Heart Rate 72 05/31/2016 [facility] Weight 80.653 05/16/2016 [facility] BMI Calculated 33.6 05/16/2016 [facility] Height 154.94 cm 05/16/2016 [facility] Weight 187 04/10/2016 Enayet Rahim Height 62 [...] 132 03/22/2016 Enayet Rahim Weight 208.2 02/10/2016 [id number] Height 60.3 02/10/2016 [id number] Temperature Oral (F) 98.3 F 02/10/2016 [id number] Heart Rate 62 02/10/2016 [id number] Diastolic (mm Hg) 90 02/10/2016 [id number] Systolic (mm Hg) 131 02/10/2016 [id number] Systolic (mm Hg) 154 03/08/2015 [facility] Diastolic (mm Hg) 84 03/08/2015 [facility] Respitory Rate 16 03/08/2015 [facility] Systolic (mm Hg) 168 03/08/2015 [facility] Diastolic (mm Hg) 92 03/08/2015 [facility] Respitory Rate 16 03/08/2015 [facility] Systolic (mm Hg) 152 03/08/2015 [facility] Diastolic (mm Hg) 83 03/08/2015 [facility] Respitory Rate 14 03/08/2015 [facility] BMI Calculated 55.19 03/05/2015 [facility] Weight 128.182 03/05/2015 [facility] Height 152.4 cm 03/05/2015 [facility] Height 154.94 cm 02/02/2015 [facility] Weight 126.364 02/02/2015 [facility] BMI Calculated 52.64 02/02/2015 [facility] Respitory Rate 16 12/30/2014 [facility] Systolic (mm Hg) 132 12/30/2014 [facility] Diastolic (mm Hg) 88 12/30/2014 [facility] Systolic (mm Hg) 132 12/30/2014 [facility] Diastolic (mm Hg) 68 12/30/2014 [facility] Respitory Rate 15 12/30/2014 [facility] Systolic (mm Hg) 141 12/30/2014 [facility] Diastolic (mm Hg) 71 12/30/2014 [facility] Respitory Rate 15 12/30/2014 [facility] Weight 128.182 12/30/2014 [facility] BMI Calculated 55.19 12/30/2014 [facility] Height 152.4 cm 12/30/2014 [facility] Encounters Location Location Details Encounter Type Encounter Number Reason For Visit Attending Provider ADM Date DC Date Status Source OD [id number] 789.04 - ABDMNAL PAIN LT [place] 09/12/2011 Active OPID [facility] [place] [facility] [id number] Kye Nicoleer II 05/26/2014 05/27/2014 [facility] OP Recurring [id number] Andrew Patti 12/04/2014 01/03/2015 [facility] Bedded Outpatient [id number] Andrew Patti 12/30/2014 12/30/2014 [facility] Outpatient [id number] Yisel Kaufman 02/02/2015 02/03/2015 [facility] Outpatient Imaging [place] Out[facility] Diag Services [id number] Kye Alan II 03/02/2015 03/03/2015 [facility] Bedded Outpatient [id number] Andrew Patti 03/08/2015 03/08/2015 [facility] Outpatient [id number] Andrew Patti 03/17/2015 03/18/2015 [facility] Outpatient [id number] Andrew Patti 03/30/2015 03/31/2015 [facility] Outpatient Imaging [place] Outpt Diag Services [id number] Kye Alan II 04/20/2015 04/21/2015 [facility] [place] [facility] OP Therapy Patients [id number] Dontae Bello 04/26/2015 05/26/2015 [facility] Outpatient [id number] Lynn Valdivia 05/14/2015 05/15/2015 [facility] OP Therapy Patients [id number] Zeeshan El 10/06/2015 11/05/2015 [facility] ESTABLISH PCP [id number] 02/10/2016 02/10/2016 [facility] ESTABLISH PCP [id number] 02/10/2016 02/10/2016 [facility] ESTABLISH PCP [id number] 02/10/2016 02/10/2016 [facility] ESTABLISH PCP [id number] 02/10/2016 02/10/2016 [facility] ESTABLISH PCP [id number] 02/10/2016 02/10/2016 [id number] [facility] ESTABLISH PCP [id number] 02/10/2016 02/10/2016 [facility] ESTABLISH PCP [id number] 02/10/2016 02/10/2016 [facility] ESTABLISH PCP [id number] 02/10/2016 02/10/2016 [facility] ESTABLISH PCP [id number] 02/10/2016 02/10/2016 [facility] ESTABLISH PCP [id number] 02/10/2016 02/10/2016 [facility] ESTABLISH PCP [id number] 02/10/2016 02/10/2016 [facility] ESTABLISH PCP [id number] 02/10/2016 02/10/2016 [facility] ESTABLISH PCP [id number] 02/10/2016 02/10/2016 [facility] ESTABLISH PCP [id number] 02/10/2016 02/10/2016 Melvina Richards MD, PA NEW PT [id number] 03/22/2016 03/22/2016 Melvina Richards MD, PA NEW PT [id number] 03/22/2016 03/22/2016 Melvina Richards MD, PA NEW PT [id number] 03/22/2016 03/22/2016 Melvina Richards MD, PA NEW PT [id number] 03/22/2016 03/22/2016 Melvina Richards MD, PA NEW PT [id number] 03/22/2016 03/22/2016 Melvina Richards MD, PA NEW PT [id number] 03/22/2016 03/22/2016 Melvina Richards MD, PA NEW PT [id number] 03/22/2016 03/22/2016 Melvina Richards MD, PA NEW PT [id number] 03/22/2016 03/22/2016 Melvina Richards MD, PA NEW PT [id number] 03/22/2016 03/22/2016 Melvina Richards MD, PA NEW PT [id number] 03/22/2016 03/22/2016 Melvina Richards MD, PA NEW PT [id number] 03/22/2016 03/22/2016 Melvina Richards MD, PA NEW PT [id number] 03/22/2016 03/22/2016 Melvina Richards MD, PA Unknown [id number] 03/23/2016 03/23/2016 Melvina Richards MD, PA Unknown [id number] 03/23/2016 03/23/2016 Melvina Richards MD, PA Unknown [id number] 03/23/2016 03/23/2016 Melvina Richards MD, PA Unknown [id number] 03/23/2016 03/23/2016 Melvina Richards MD, PA Unknown [id number] 03/23/2016 03/23/2016 Melvina Richards MD, PA Unknown [id number] 03/23/2016 03/23/2016 Melvina Richards MD, PA Unknown [id number] 03/23/2016 03/23/2016 Melvina Richards MD, PA Unknown [id number] 03/23/2016 03/23/2016 Melvina Richards MD, PA Unknown [id number] 03/23/2016 03/23/2016 Melvina Richards MD, PA Unknown [id number] 03/23/2016 03/23/2016 Melvina Richards MD, PA Unknown [id number] 03/23/2016 03/23/2016 Melvina Richards MD, PA Unknown [id number] 03/23/2016 03/23/2016 Melvina Richards MD, PA Unknown [id number] 03/23/2016 03/23/2016 Melvina Richards MD, PA Unknown [id number] 04/03/2016 04/03/2016 Melvina Richards MD, PA Unknown [id number] 04/03/2016 04/03/2016 Melvina Richards MD, PA Unknown [id number] 04/03/2016 04/03/2016 Melvnia Richards MD, PA Unknown [id number] 04/03/2016 04/03/2016 Melvina Richards MD, PA Unknown [id number] 04/03/2016 04/03/2016 Melvina Richards MD, PA Unknown [id number] 04/03/2016 04/03/2016 Melvina Richards MD, [place] Unknown [id number] 04/03/2016 04/03/2016 Melvina Richards MD, PA Unknown [id number] 04/03/2016 04/03/2016 Melvina Richards MD, PA Unknown [id number] 04/03/2016 04/03/2016 Melvina Richards MD, PA Unknown [id number] 04/03/2016 04/03/2016 Melvina Richards MD, PA Unknown [id number] 04/03/2016 04/03/2016 Melvina Richards MD, PA Other [id number] 04/06/2016 04/06/2016 Melvina Richards MD, PA Other [id number] 04/06/2016 04/06/2016 Melvina Richards MD, PA Other [id number] 04/06/2016 04/06/2016 Melvina Richards MD, PA Other [id number] 04/06/2016 04/06/2016 Melvina Richards MD, PA Other [id number] 04/06/2016 04/06/2016 Melvina Richards MD, PA Other [id number] 04/06/2016 04/06/2016 Melvina Richards MD, PA Other [id number] 04/06/2016 04/06/2016 Melvina Richards MD, PA Other [id number] 04/06/2016 04/06/2016 Melvina Richards MD, PA Other [id number] 04/06/2016 04/06/2016 Melvina Richards MD, PA Other [id number] 04/06/2016 04/06/2016 Melvina Richards MD, PA surgery clearance [id number] 04/10/2016 04/10/2016 Melvina Richards MD, PA surgery clearance [id number] 04/10/2016 04/10/2016 Melvina Richards MD, PA surgery clearance [id number] 04/10/2016 04/10/2016 Melvina Richards MD, PA surgery clearance [id number] 04/10/2016 04/10/2016 Melvina Richards MD, PA surgery clearance [id number] 04/10/2016 04/10/2016 Melvina Richards MD, PA surgery clearance [id number] 04/10/2016 04/10/2016 Melvina Richards MD, PA surgery clearance [id number] 04/10/2016 04/10/2016 Melvina Richards MD, PA surgery clearance [id number] 04/10/2016 04/10/2016 Melvina Richards MD, PA Unknown [id number] 04/14/2016 04/14/2016 Melvina Richards MD, PA Unknown [id number] 04/14/2016 04/14/2016 Melvina Richards MD, PA Unknown [id number] 04/14/2016 04/14/2016 Melvina Richards MD, PA Unknown [id number] 04/14/2016 04/14/2016 Melvina Richards MD, PA Unknown [id number] 04/14/2016 04/14/2016 Melvina Richards MD, PA Unknown [id number] 04/14/2016 04/14/2016 Melvina Richards MD, PA Unknown [id number] 04/14/2016 04/14/2016 Melvina Richards MD, PA Unknown [id number] 04/14/2016 04/14/2016 Melvina Richards MD, PA Unknown [id number] 04/14/2016 04/14/2016 Melvina Richards MD, PA Unknown [id number] 04/24/2016 04/24/2016 Melvina Richards MD, PA Unknown [id number] 04/24/2016 04/24/2016 Melvina Richards MD, PA Unknown [id number] 04/24/2016 04/24/2016 Melvina Richards MD, PA Unknown [id number] 04/24/2016 04/24/2016 Melvina Richards MD, PA Unknown [id number] 04/24/2016 04/24/2016 Melvina Richards MD, PA Unknown [id number] 04/24/2016 04/24/2016 Melvina Richards MD, [place] Unknown [id number] 04/24/2016 04/24/2016 Melvina Richards MD, PA Unknown [id number] 04/28/2016 04/28/2016 Melvina Richards MD, PA Unknown [id number] 04/28/2016 04/28/2016 Melvina Richards MD, PA WAn[facility] Refill on meds [id number] 04/28/2016 04/28/2016 Melvina Richards MD, PA [facility] Refill on meds [id number] 04/28/2016 04/28/2016 Melvina Richards MD, PA Unknown [id number] 04/28/2016 04/28/2016 Melvina Richards MD, PA Unknown [id number] 04/28/2016 04/28/2016 Melvina Richards MD, PA Unknown [id number] 04/28/2016 04/28/2016 Melvina Richards MD, PA Unknown [id number] 04/28/2016 04/28/2016 Melvina Richards MD, PA W[facility] Refill on meds [id number] 04/28/2016 04/28/2016 Melvina Richards MD, PA [facility] Refill on meds [id number] 04/28/2016 04/28/2016 Melvina Richards MD, PA [facility] Refill on meds [id number] 04/28/2016 04/28/2016 Melvina Richards MD, PA [facility] Refill on meds [id number] 04/28/2016 04/28/2016 Melvina Richards [facility] Inpatient [id number] Dontae [facility] 05/29/2016 05/31/2016 [facility] Melvina Richards MD, PA Unknown [id number] 06/27/2016 06/27/2016 Melvina Richards MD, PA Unknown [id number] 06/27/2016 06/27/2016 Melvina Richards MD, PA Unknown [id number] 06/27/2016 06/27/2016 Melvina Richards MD, PA Unknown [id number] 06/27/2016 06/27/2016 Melvina Richards [facility] OP Therapy Patients [id number] Dontae Bello 07/05/2016 08/04/2016 [facility] Melvina Richards MD, PA 3 month f/u [id number] 07/10/2016 07/10/2016 Melvina Richards MD, PA 3 month f/u [id number] 07/10/2016 07/10/2016 Melvina Richards MD, PA 3 month f/u [id number] 07/10/2016 07/10/2016 Melvina Richards MD, PA Sick Visit [id number] 07/19/2016 07/19/2016 Melvina Richards MD, PA Sick Visit [id number] 07/19/2016 07/19/2016 Melvina Richards [facility] OP Therapy Patients [id number] Dontae Bello 08/10/2016 09/09/2016 [facility] Melvina Richards MD, PA Sick Visit [id number] 08/29/2016 08/29/2016 Melvina Richards [facility] Bedded Outpatient [id number] Francisco Javieritybimal MaoJohn 09/11/2016 09/11/2016 [facility] OP Therapy Patients [id number] Dontae Bello 09/18/2016 10/18/2016 [facility] Emergency [id number] Theodore Kaurmar 10/10/2016 10/10/2016 [facility] OP Therapy Patients [id number] Dontae Bello 02/06/2017 03/08/2017 [facility] Outpatient [id number] Yisel Kaufman 07/03/2017 07/04/2017 [facility] Procedures Procedure Code Date Perfomer Comments Source Aortofemoral angiogram [id number] [facility] Knee replacement [id number] [facility] Upper GI endoscopy [id number] [facility] Aortofemoral angiogram [id number] [facility] Knee replacement [id number] [facility] Upper GI endoscopy [id number] [facility] Aortofemoral angiogram [id number] [facility] Upper GI endoscopy [id number] [facility] Aortofemoral angiogram [id number] [facility] Upper GI endoscopy 91257052 [facility] Aortofemoral angiogram [id number] [facility] Upper GI endoscopy [id number] [facility]
--- OUTSIDE RECORDS SUMMARY | 2018-09-23 16:16 | XMS REPORT ---
Author Author Tatianna Hinton Organization [employer] Address Unknown Phone Unavailable Care Team Providers Care Freight Service Inspector Name Role Phone Tatianna Hinton CP Unavailable [...] cyclical vomiting with nausea G43.A1 Active Assessment Essential hypertension I10 Active Assessment Intractable migraine without aura and without status migrainosus G43.019 Active Assessment Anxiety F41.9 Active Problem S/P bariatric surgery Z98.84 Active Problem Arthralgia of knee, right M25.561 Active Problem Anxiety F41.9 Active Problem Primary osteoarthritis, unspecified site M19.91 Active Problem Essential hypertension I10 Active Problem Nausea R11.0 Active Medications Medication Code System Code Instructions Start Date End Date Status Dosage Alprazolam [facility] 25900920341 0.25 MG Orally bid prn May 04, 2017 Active 1 tab in am and half at bedtime Quinapril HCl ND 44160680646 20 MG Orally Once a day Active 1 tablet Promethazine HCl [facility] 70175037682 12.5 MG Orally Active 1 tablet as needed Medical Compression Stockings ND 73741388063 as directed daily Mar 22, 2016 Active as directed Citalopram Hydrobromide ND 43924306789 40 mg Orally Once a day Active 1 tablet Naproxen ND 95859728094 500 MG Orally tid as needed Active 1 tablet with food or milk Promethazine HCl [facility] 05305281232 12.5 MG Orally every 12 hrs as needed for nausea during migraine headache Mar 29, 2018 May 15, 2018 Active 1 tablet as needed Vital Signs Date/Time: May 10, 2018 BMI 27.80 Index Weight 152 lbs Height 62 in Temperature 98.2 F Blood Pressure Diastolic 75 mm Hg Blood Pressure Systolic 120 mm Hg Results No Known Results Summary Purpose [employer] Submission
--- OUTSIDE RECORDS SUMMARY | 2018-09-23 16:17 | XMS REPORT ---
Author Author Tatianna Hinton Organization [employer] Address Unknown Phone Unavailable Care Team Providers Care Network Security Engineer Name Role Phone Tatianna Hinton CP [...] Assessment Essential hypertension I10 Active Assessment Anxiety disorder, unspecified F41.9 Active Assessment Other dietary vitamin B12 deficiency anemia D51.3 Active Problem S/P bariatric surgery Z98.84 Active Problem Arthralgia of knee, right M25.561 Active Problem Anxiety F41.9 Active Problem Primary osteoarthritis, unspecified site M19.91 Active Problem Essential hypertension I10 Active Problem Nausea R11.0 Active Medications Medication Code System Code Instructions Start Date End Date Status Dosage Promethazine HCl [facility] 78520559480 12.5 MG Orally Active 1 tablet as needed Trazodone HCl [facility] 37778786856 50 Orally Once a day Active 1 tablet at bedtime as needed Alprazolam ND 92456869957 0.25 MG Orally bid prn May 04, 2017 Active 1 tab in am and half at bedtime Naproxen ND 84226087717 500 MG Orally tid as needed Active 1 tablet with food or milk Quinapril HCl [facility] 30192847083 20 MG Orally Once a day Active 1 tablet Citalopram Hydrobromide [facility] 65821921630 40 mg Orally Once a day Active 1 tablet Medical Compression Stockings [facility] 80115101591 as directed daily Mar 22, 2016 Active as directed Vital Signs Date/Time: Jul 10, 2018 BMI 27.43 Index Weight 150 lbs Height 62 in Temperature 98.1 F Blood Pressure Diastolic 67 mm Hg Blood Pressure Systolic 119 mm Hg Results No Known Results Summary Purpose [employer] Submission
--- OUTSIDE RECORDS SUMMARY | 2018-09-23 16:17 | XMS REPORT ---
Author Author Tatianna Hinton Organization [employer] Address Unknown Phone Unavailable Care Team Providers Care Bond Underwriter Name Role Phone Tatianna Hinton CP Unavailable [...] Primary osteoarthritis involving multiple joints M15.0 Active Assessment Anxiety F41.9 Active Problem Primary osteoarthritis, right hand M19.041 Active Problem Intractable migraine without aura and without status migrainosus G43.019 Active Problem Major depressive disorder, single episode, unspecified F32.9 Active Problem Anxiety disorder, unspecified F41.9 Active Problem Primary osteoarthritis of left 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 Active Problem Intractable cyclical vomiting with nausea G43.A1 Active Assessment Acute sinusitis with symptoms > 10 days J01.90 Active Assessment Other dietary vitamin B12 deficiency anemia D51.3 Active Assessment Nonintractable episodic headache, unspecified headache type R51 Active Problem S/P bariatric surgery Z98.84 Active Problem Arthralgia of knee, right M25.561 Active Problem Anxiety F41.9 Active Problem Primary osteoarthritis, unspecified site M19.91 Active Problem Essential hypertension I10 Active Problem Nausea R11.0 Active Medications Medication Code System Code Instructions Start Date End Date Status Dosage Levaquin [facility] 19501363487 500 MG Orally Once a day September 03, 2018 September 13, 2018 Active 1 tablet Quinapril HCl [facility] 48942952545 20 MG Orally Once a day Active 1 tablet Promethazine HCl [facility] 15618055136 12.5 MG Orally Active 1 tablet as needed Alprazolam ND 81065163613 0.25 MG Orally bid prn May 04, 2017 Active 1 tab in am and half at bedtime Naproxen ND 35656019449 500 MG Orally tid as needed Active 1 tablet with food or milk Trazodone HCl [facility] 09013089479 50 Orally Once a day Inactive 1 tablet at bedtime as needed Citalopram Hydrobromide [facility] 26892812479 40 mg Orally Once a day Active 1 tablet Medical Compression Stockings [facility] 82280613077 as directed daily Mar 22, 2016 Active as directed Vital Signs Date/Time: September 03, 2018 BMI 27.62 Index Weight 151 lbs Height 62 in Temperature 98.3 F Blood Pressure Diastolic 84 mm Hg Blood Pressure Systolic 140 mm Hg Results No Known Results Summary Purpose [employer] Submission
--- NOTE | 2018-09-23 17:35 | Diagnostic Imaging Report ---
Examination: CT head without contrast Clinical Indication: Headache. Nausea. Technique: Transaxial noncontrast images from the skull base through the vertex were obtained. Sagittal and coronal reformatted images were done. Dose modulation, iterative reconstruction, and/or weight based adjustment of the mA/kV was utilized to reduce the radiation dose to as low as reasonably achievable. Comparison: None. Findings: Scalp: No abnormalities. Bones: Intact. No fractures. No blastic or lytic lesions. Brain sulci: Appropriate for patient's age. Ventricles: Normal in size and configuration. No hydrocephalus. Extra-axial space: No abnormalities. Parenchyma: No abnormal densities. No masses, hemorrhage, or acute or chronic cortical based vascular insults. Suprasellar region: No abnormalities. Craniocervical junction: The foramen magnum is patent. No Chiari one malformation. Impression: No intracranial abnormality. Signed by: Dr. Miya Santiago M.D. on 09/23/2018 5:31 PM
== END 2018-09-23 19:53 | disposition home or self-care (01) ==
LOC: FSED 16:10
DX: R51 Headache (principal); M54.2 Cervicalgia; N30.90 Cystitis, unspecified without hematuria; I10 Essential (primary) hypertension
CPT/HCPCS: 36415; 70450; 80048; 80076; 81003; 85025; 85651; 87086; 87186; 99283

== ENCOUNTER 2021-06-25 20:42 | Emergency (ER) | payer MEDICARE, BC ==
[~2021-06-25] VITALS: Ht 157.5 cm; Wt 73.9 kg
[2021-06-25] MEDS ORDERED: LIDOCAINE HCL 1% LOCAL INJ 20 ML VIAL INJ STA (21:00)
[2021-06-25] MEDS ORDERED: TRAMADOL HCL 50 MG TAB PO STA (21:00)
[2021-06-25] MEDS ORDERED: KETOROLAC TROMETHAMINE 60 MG/2 ML VIAL IM ONE (21:15)
[2021-06-25] MEDS ORDERED: LIDOCAINE HCL 1% LOCAL INJ 20 ML VIAL ONE (21:16)
[2021-06-25] MEDS ORDERED: KETOROLAC TROMETHAMINE 30 MG/ML VIAL ONE (21:27)
[2021-06-25 21:45] VITALS: BP 130/89
== END 2021-06-25 21:45 | disposition home or self-care (01) ==
LOC: FSED 21:00
DX: S33.5XXA Sprain of ligaments of lumbar spine, initial encounter (principal); M47.816 Spondylosis without myelopathy or radiculopathy, lumbar region; K02.9 Dental caries, unspecified; Z88.6 Allergy status to analgesic agent; X50.0XXA Overexertion from strenuous movement or load, initial encounter
CPT/HCPCS: 72100; 81003; 96372; 99283; J1885; J2001